=== PATIENT | male | born 1970 | race Caucasian/White ===

== ENCOUNTER 2023-09-29 08:46 | Outpatient (AMB) | payer BC, SELFPAY ==
--- NOTE | 2023-09-29 08:54 | MHC.PC.OV ---
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 He is transferring from [facility] and was last seen by myself on 07/06/2023. CV: Blood pressure today in the office is 118/76. His last cholesterol from July was significantly improved however his triglycerides were still elevated at 281. He was on the atorvastatin 20 mg and states that he has been taking this and repeated his labs recently but does not have the report yet from lab [facility]. He did have a stress test which was negative. He had a normal Holter monitor. He has been following a healthy lifestyle in his feeling overall better. Endo: Seeing an alternative medicine physician and started testosterone and feeling better. Colonoscopy: done november 2022, due in 2027 PSA: UTD, Apr 2023 [facility] Medical History (Updated 09/29/23 @ 09:37 by Kyung Dawkins PA-C) Low testosterone in male Arthritis Tachycardia Obesity, Class I, BMI 30-34.9 Hyperlipidemia Hx of pneumothorax Hx of Lyme disease Hx of fracture of rib Dyslipidemia Family History (Updated 09/29/23 @ 09:26 by Becca Garcia CMA) Mother Breast cancer Father Colon cancer Diabetes mellitus Heart disease Hypercholesteremia HTN (hypertension) Cardiovascular disease Maternal Aunt No problems noted. 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 1. Little interest or pleasure in doing things: not at all 2. Feeling down, depressed, or hopeless: not at all 3. Trouble falling or staying asleep, or sleeping too much: not at all 4. Feeling tired or having little energy: several days 5. Poor appetite or overeating: not at all 6. Feeling bad about yourself - or that you are a failure or have let yourself or your family down: not at all 7. Trouble concentrating on things, such as reading the newspaper or watching television: not at all 8. Moving or speaking so slowly that other people could have noticed. Or the opposite - being so fidgety or restless that you have been moving around a lot more than usual: not at all 9. Thoughts that you would be better off or of hurting yourself in some way: not at all Total score: 1 Depression Screening Interpretation: Negative Depression Screening Done: Yes 79401 - PHQ-9 Billing: Yes Source: Developed by Drs. Shashank Smith, Janet Arzate, Berry Green and colleagues, with an educational bora from [employer]. Thrive Questionnaire Date Thrive assessed: 09/29/23 I am a: Patient What is your living situation today?: I have a steady place to live Within the past 12 months, did the food you bought not last and you didn't have the money to get more?: Never true Within the past 12 months, did you worry whether your food would run out before you got money to buy more?: Never true Do you have trouble paying for medicines?: No Do you have trouble getting transportation to medical appointments?: No Do you have trouble paying your heating and electricity bill?: No Do you have trouble taking care of your child, family member or friend?: No Do you have trouble with day-to-day activities such as bathing, preparing meals, shopping, managing finances, etc.?: No Are you currently unemployed and looking for a job?: No Are you interested in more education?: No Please select the resources that you would like help with: None Currently or been in a relationship where the following occur: no concerns reported THRIVE Score: 0 AUDIT C Alcohol Use Questionnaire (AUDIT-C) 1. How often do you have a drink containing alcohol?: 2-4 times a month 2. How many drinks containing alcohol do you have on a typical day when you are drinking?: 3 or 4 3. How often do you have six or more drinks on one occasion?: Monthly Total Score: 5 JANET-7 AMB Questionnaire JANET-7 Date JANET - 7 assessed: 09/29/23 Feeling nervous, anxious, or on edge: 0 = Not at all Not being able to stop or control worryin = Not at all Worrying too much about different things: 0 = Not at all Trouble relaxin = Not at all Being so restless that it is hard to sit still: 0 = Not at all Becoming easily annoyed or irritable: 0 = Not at all Feeling afraid as if something awful might happen: 0 = Not at all Total JANET-7 score (0-4 normal; 5-9 mild; 10-14 moderate; 15-21 severe): 0 Source: Developed by Drs. Shashank Smith, Janet Arzate, Berry Green and colleagues, with an educational bora from [employer]. JANET-7 Assessment Billing JANET-7 Assessment Tool: JANET-7 Assessment 58547 Physical exam (Primary Care) Vital Signs: Last Vital Signs Temp 97.5 F 09/29/23 09:00 Pulse 81 09/29/23 09:00 Resp 13 09/29/23 09:00 BP 118/76 09/29/23 09:00 Pulse Ox 96 09/29/23 09:00 Oxygen Delivery Method Room Air 09/29/23 09:00 BMI result Body Mass Index 32.0 Tobacco/Smoking Status: Tobacco use Status Tobacco use date assessed 09/29/23 09/29/23 09:08 Patient Tobacco Use Status Never used Tobacco 09/29/23 09:08 e-Cigarette/Vaping Use Never Used 09/29/23 09:08 Depression Screening Interpretation: Negative Currently or been in a relationship where the following occur: no concerns reported Const Orientation/consciousness: patient oriented x3 HENMT Ears: hearing grossly normal bilaterally Neck Thyroid: Thyroid normal Lymphatic: no lymphadenopathy noted Resp Auscultation: clear to auscultation bilaterally Cardio Rate: regular rate Rhythm: regular rhythm Heart sounds: S1 normal heart sound present and S2 normal heart sound present GI Inspection: Yes normal to inspection Palpation (GI): Soft to palpation and Other GI palpation findings present (nontender, no cva tenderness) Auscultation: normoactive bowel sounds Rectal Exam - Male: Yes deferred Skin General skin exam: no rashes or lesions noted Neuro General: patient oriented x3, gait normal and no focal motor deficits Results Reviewed Results Reviewed: lipids improved, lfts wnl Assessment and Plan Assessment & Plan (1) Dyslipidemia: Code(s): E78.5 - Hyperlipidemia, unspecified Plan: continue on atorvastatin 20 mg. will check lipids and lfts in 6 months (2) Low testosterone in male: Code(s): R79.89 - Other specified abnormal findings of blood chemistry Plan: managed by [facility]. Plan f/u 6 months or sooner prn. Orders: Orders Lipid Panel 5 Months Z00.00 - Encounter for general adult medical examination without abnormal findings Complete Blood Count Auto Diff 5 Months Z00.00 - Encounter for general adult medical examination without abnormal findings Comprehensive [place]. Panel Fast 5 Months Z00.00 - Encounter for general adult medical examination without abnormal findings PSA, Ultra Sensitive 5 Months R06.09 - Other forms of dyspnea, Z00.00 - Encounter for general adult medical examination without abnormal findings Coding Level of Care Code Est Pt Level 4 (85249) Complex EM visit Add On G2211 Diagnoses Dyslipidemia E78.5 Low testosterone in male R79.89 Additional Codes JANET-7 Assessment Billing - JANET-7 Assessment Tool: JANET-7 Assessment 06846 ([id number])
[2023-09-29 09:00] VITALS: BP 118/76; PULSE 81; RESP 14; TEMP 36.4; O2SAT 96; BMI 32.0
== END 2023-09-29 09:46 | disposition home or self-care (01) ==
PROVIDERS: PCP Physician Assistant; Visit Provider Physician Assistant
DX: E78.5 Hyperlipidemia, unspecified (principal); R79.89 Other specified abnormal findings of blood chemistry
CPT/HCPCS: 99214

== ENCOUNTER 2024-03-07 07:36 | Outpatient (REF) | payer BC, SELFPAY ==
[2024-03-07 11:18] LABS: MANUAL DIFF FLAG NO
[2024-03-07 11:23] LABS: Basophils Percent Auto 0.4 % (0-2); Eosinophils Absolute Auto 0.2 X10*3/uL (0.0-0.4); Eosinophils Percent Auto 3.3 % (0-4); Hematocrit 49.1 % (42.0-52.0); Hemoglobin 16.4 g/dl (14.0-18.0); Imm Gran Abs Auto 0.01 X10*3/uL (0.00-0.03); Imm Gran Pct Auto 0.1 % (0.0-0.4); Lymphocytes Absolute Auto 3.3 X10*3/uL (1.2-4.9); Lymphocytes Percent Auto 47.6 % (20-40); Mean Corpuscular HGB Conc 33.4 g/dl (31.0-36.0); Mean Corpuscular Hemoglobin 32.2 pg (27.0-33.0); Mean Corpuscular Volume 96.5 fL (80.0-98.0); Mean Platelet Volume 11.3 fL (9.4-12.4); Monocytes Absolute Auto 0.6 X10*3/uL (0.1-1.2); Monocytes Percent Auto 8.2 % (2-11); Neutrophils Absolute Auto 2.8 x10*3/uL (2.0-8.3); Neutrophils Percent Auto 40.4 % (45-73); Platelet Count 199 X10*3/uL (160-400); Red Blood Count 5.09 X10*6/uL (4.60-5.80); White Blood Count 6.9 X10*3/uL (4.8-10.8)
[2024-03-07 11:46] LABS: Estimated Average Glucose 108 mg/dL; Hemoglobin A1C 154.6379 umol/L; Hemoglobin A1c % 5.4 % (<6.0); Total Hemoglobin (HGBA1C) 4365.1271 umol/L
[2024-03-07 11:52] LABS: Alanine Aminotransferase 53 U/L (0-40); Albumin Level 4.7 g/dL (3.5-5.0); Alkaline Phosphatase 70 U/L (39-117); Anion Gap 10 (12-20); Aspartate Amino Transferase 37 U/L (5-37); Bilirubin Total 1.9 mg/dL (0.0-1.0); Blood Urea Nitrogen 13 mg/dL (9-16); Calcium 9.6 mg/dL (8.4-10.2); Carbon Dioxide 31 mmol/L (22-29); Chloride 102 mmol/L (96-108); Cholesterol 232 mg/dL (<200); Estimated Glomerular Filt Rate > 60; Glucose Fasting 92 mg/dL (60-99); HDL Cholesterol 27 mg/dL (>40); LDL Cholesterol Calculated 160 mg/dL (<100); Sodium 139 mmol/L (135-145); Total Protein 7.7 g/dL (6.5-8.0); Triglycerides 229 mg/dL (<150)
[2024-03-07 12:11] LABS: TSH reflex Free T4 1.61 uIU/mL (0.32-4.0)
[2024-03-12 16:29] LABS: Testosterone, Free 265.2 pg/mL (35.0-155.0); Testosterone, Total 947 ng/dL (250-1100)
[2024-03-14 21:13] LABS: PSA, Ultra Sensitive 0.62 ng/mL
== END 2024-03-07 07:37 | disposition home or self-care (01) ==
LOC: HO.WFDLDS 07:36
PROVIDERS: Visit Provider Physician Assistant
DX: Z00.00 Encounter for general adult medical examination without abnormal findings (principal); Z12.5 Encounter for screening for malignant neoplasm of prostate; E78.5 Hyperlipidemia, unspecified; R73.01 Impaired fasting glucose; R06.09 Other forms of dyspnea; R79.89 Other specified abnormal findings of blood chemistry
CPT/HCPCS: 36415; 80053; 80061; 83036; 84153; 84402; 84403; 84443; 85025

== ENCOUNTER 2024-03-14 08:40 | Outpatient (AMB) | payer BC, SELFPAY ==
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
[2024-03-14 08:48] VITALS: BP 128/86; PULSE 84; BMI 42.6
== END 2024-03-14 09:42 | disposition home or self-care (01) ==
PROVIDERS: PCP Physician Assistant; Visit Provider Internal Medicine Endocrinology, Diabetes & Metabolism
DX: R79.89 Other specified abnormal findings of blood chemistry (principal)
CPT/HCPCS: 99204

== ENCOUNTER 2024-03-15 07:49 | Outpatient (REF) | payer BC, SELFPAY | END 2024-03-15 07:50 | disposition home or self-care (01) | LOC: HO.US 07:49 | PROVIDERS: PCP Physician Assistant; Visit Provider Physician Assistant | DX: E78.5 Hyperlipidemia, unspecified (principal); R79.89 Other specified abnormal findings of blood chemistry | CPT/HCPCS: 76700 ==

== ENCOUNTER 2024-03-22 07:36 | Outpatient (AMB) | payer BC, SELFPAY ==
--- NOTE | 2024-03-22 08:06 | A.OFFPC_ITS ---
Vital Signs 03/22/24 08:08 Height 5 ft 10 in Weight 220 lb 6 oz BMI 31.6 BP 130/86 Blood Pressure Location Lt brachial Position Sitting Pulse 78 Pulse Source Pulse Oximeter Pulse Oximetry (%) 94 Oxygen Delivery Method Room Air Intake Visit Reasons: annual physcial Intake Note: Physical. Had ultrasound done. Report not back. Was taken of the testosterone. Extra Hand Required: No Allergies No Known Allergies Allergy (Verified 03/22/24 08:07) Medication List - Last Reconciled 03/22/24 by Kyung Dawkins PA-C atorvastatin 20 mg PO DAILY coenzyme O97-ozbibqx E 100-100 mg-unit caps PO omega 8-ekd-edh-fish oil 300-1,000 mg (Fish Oil) 1 cap PO TID Tobacco use date assessed: 09/29/23 Dental Screening Dental Screen Date: 09/29/23 HPI annual physcial HPI Details Patient is a 52-year-old male who presents today for a follow up. CV: Blood pressure today in the office is 130/86. At our last visit we did increase the atorvastatin to 40 mg but he did not really tolerate this dosage and he did have some increased lfts and higher cholesterol. He went back down to 20 mg and states that he is feeling better and wants to continue with this dosage and recheck his labs. He did have a stress test which was negative. He had a normal Holter monitor. He has been following a healthy lifestyle in his feeling overall better. Endo: Seeing Dr. Tijerina for the possible low testosterone. Colonoscopy: done november 2022, due in 2027 PSA: UTD, Apr 2023 [facility] Medical History (Updated 03/10/24 @ 11:22 by Kyung Dawkins PA-C) Low testosterone in male Arthritis Tachycardia Obesity, Class I, BMI 30-34.9 Hyperlipidemia Hx of pneumothorax Hx of Lyme disease Hx of fracture of rib Dyslipidemia Surgical History No pertinent past surgical history Family History Mother Breast cancer Father Colon cancer Diabetes mellitus Heart disease Hypercholesteremia HTN (hypertension) Cardiovascular disease Maternal Aunt No problems noted. 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 1. Little interest or pleasure in doing things: not at all 2. Feeling down, depressed, or hopeless: not at all 3. Trouble falling or staying asleep, or sleeping too much: not at all 4. Feeling tired or having little energy: not at all 5. Poor appetite or overeating: not at all 6. Feeling bad about yourself - or that you are a failure or have let yourself or your family down: not at all 7. Trouble concentrating on things, such as reading the newspaper or watching television: not at all 8. Moving or speaking so slowly that other people could have noticed. Or the opposite - being so fidgety or restless that you have been moving around a lot more than usual: not at all 9. Thoughts that you would be better off or of hurting yourself in some way: not at all Total score: 0 Depression Screening Interpretation: Negative Depression Screening Done: Yes 95117 - PHQ-9 Billing: Yes Source: Developed by Drs. Shashank Smith, Janet Arzate, Berry Green and colleagues, with an educational bora from [employer]. Thrive Questionnaire Date Thrive assessed: 03/19/24 I am a: Patient What is your living situation today?: I choose not to answer this question Within the past 12 months, did the food you bought not last and you didn't have the money to get more?: I choose not to answer this question Within the past 12 months, did you worry whether your food would run out before you got money to buy more?: I choose not to answer this question Do you have trouble paying for medicines?: I choose not to answer this question Do you have trouble getting transportation to medical appointments?: I choose not to answer this question Do you have trouble paying your heating and electricity bill?: I choose not to answer this question Do you have trouble taking care of your child, family member or friend?: I choose not to answer this question Do you have trouble with day-to-day activities such as bathing, preparing meals, shopping, managing finances, etc.?: I choose not to answer this question Are you currently unemployed and looking for a job?: I choose not to answer this question Are you interested in more education?: I choose not to answer this question Please select the resources that you would like help with: None Currently or been in a relationship where the following occur: I choose not to answer THRIVE Score: 0 AUDIT C Alcohol Use Questionnaire (AUDIT-C) 1. How often do you have a drink containing alcohol?: 2-4 times a month 2. How many drinks containing alcohol do you have on a typical day when you are drinking?: 1 or 2 3. How often do you have six or more drinks on one occasion?: Less than monthly Total Score: 3 JANET-7 AMB Questionnaire JANET-7 Date JANET - 7 assessed: 03/22/24 Feeling nervous, anxious, or on edge: 0 = Not at all Not being able to stop or control worryin = Not at all Worrying too much about different things: 0 = Not at all Trouble relaxin = Not at all Being so restless that it is hard to sit still: 0 = Not at all Becoming easily annoyed or irritable: 1 = Several days Feeling afraid as if something awful might happen: 0 = Not at all Total JANET-7 score (0-4 normal; 5-9 mild; 10-14 moderate; 15-21 severe): 1 Source: Developed by Drs. Shashank Smith, Janet Arzate, Berry Green and colleagues, with an educational bora from [employer]. JANET-7 Assessment Billing JANET-7 Assessment Tool: JANET-7 Assessment 21883 Physical exam (Primary Care) Vital Signs: Last Vital Signs Pulse 78 03/22/24 08:08 BP 130/86 03/22/24 08:08 Pulse Ox 94 03/22/24 08:08 Oxygen Delivery Method Room Air 03/22/24 08:08 BMI result Body Mass Index 31.6 Tobacco/Smoking Status: Tobacco use Status Tobacco use date assessed 09/29/23 03/22/24 08:13 Patient Tobacco Use Status Never used Tobacco 03/22/24 08:13 e-Cigarette/Vaping Use Never Used 03/22/24 08:13 PHQ-9: PHQ-9 Score PHQ-9: Total score 0 03/22/24 08:17 Depression Screening Interpretation: Negative Thrive Assessment: Date of Thrive Assessment Date Thrive assessed 03/19/24 03/22/24 08:13 Currently or been in a relationship where the following occur: I choose not to answer Const Orientation/consciousness: patient oriented x3 HENMT Ears: hearing grossly normal bilaterally and TM's normal bilaterally General nose exam: No nasal polyps present Face and sinus: Yes sinuses nontender Mouth: Normal oral and palatal mucosa present Eyes Pupils: Equal, round and reactive pupils present EOM: EOMs intact bilaterally Neck Neck: Yes full ROM and Yes no lymphadenopathy Thyroid: Thyroid normal Lymphatic: no lymphadenopathy noted Chest Chest palpation & inspection: normal inspection of the chest Resp Auscultation: clear to auscultation bilaterally Cardio Rate: regular rate Rhythm: regular rhythm Heart sounds: S1 normal heart sound present and S2 normal heart sound present Peripheral pulses: Peripheral pulses 2+ throughout GI Other: Soft, nontender Inspection: Yes normal to inspection Palpation (GI): Soft to palpation and Other GI palpation findings present (nontender, no cva tenderness) Auscultation: normal bowel sounds Rectal Exam - Male: Yes deferred General: Yes no CVA tenderness Back/Spine/Pelvis Other: Nontender Back: no CVA tenderness Skin General skin exam: no rashes or lesions noted Neuro General: patient oriented x3, gait normal, CN's II-XI intact bilaterally and deep tendon reflexes 2+ bilaterally Cranial nerves: Yes Equal, round and reactive pupils present Motor exam (neuro): 5/5 motor strength present throughout Sensory Exam: double simultaneous stimulation for sensation normal Coordination: [id number] test normal and Romberg test negative Extrem General: Yes normal to inspection and Yes full ROM Psych Affect: normal affect Attitude: cooperative Thought process: Normal thought process present Thought content: Normal thought content present Insight: Good insight present (Psych) Judgement: Good judgement present (Psych) Results Reviewed Results Reviewed: Laboratory Tests 03/07/24 07:38 WBC 6.9 RBC 5.09 Hgb 16.4 Hct 49.1 Plt Count 199 Sodium 139 Potassium 4.0 Chloride 102 Carbon Dioxide 31 H Anion Gap 10 L BUN 13 Creatinine 1.03 Estimated GFR > 60 Fasting Glucose 92 Hemoglobin A1c % 5.4 Total Bilirubin 1.9 H AST 37 ALT 53 H Alkaline Phosphatase 70 Total Protein 7.7 Albumin 4.7 Triglycerides 229 H Cholesterol 232 H LDL Cholesterol, Calc 160 H HDL Cholesterol 27 L PSA Ultra-Sensitive 0.62 TSH 1.61 Total Testosterone 947 Coding Level of Care Code Est Pt Prev Care 40-64y(69159) Diagnoses Routine general medical examination at a health care facility Z00.00 Elevated LFTs R79.89 Dyslipidemia E78.5 Additional Codes JANET-7 Assessment Billing - JANET-7 Assessment Tool: JANET-7 Assessment 51307 ([id number]) PHQ-9 - 60343 - PHQ-9 Billing: Yes ([id number]) Assessment & Plan Assessment & Plan (1) Routine general medical examination at a health care facility: Code(s): Z00.00 - Encounter for general adult medical examination without abnormal findings Plan: Health maintenance reviewed (2) Elevated LFTs: Code(s): R79.89 - Other specified abnormal findings of blood chemistry Category: Medical Plan: Reviewed ultrasound. Still waiting for the actual interpretation through [facility]. We reviewed the clean room technician findings (3) Dyslipidemia: Code(s): E78.5 - Hyperlipidemia, unspecified Category: Medical Plan: On Lipitor 20 mg. We will recheck labs in a few months.
[2024-03-22 08:08] VITALS: BP 130/86; PULSE 78; O2SAT 94; BMI 31.6
== END 2024-03-22 10:59 | disposition home or self-care (01) ==
PROVIDERS: PCP Physician Assistant; Visit Provider Physician Assistant
DX: Z00.00 Encounter for general adult medical examination without abnormal findings (principal); R79.89 Other specified abnormal findings of blood chemistry; E78.5 Hyperlipidemia, unspecified

== ENCOUNTER → 2024-03-22 07:36 | Outpatient (BNVA) | payer BC, SELFPAY | PROVIDERS: PCP Physician Assistant; Visit Provider Physician Assistant | DX: Z00.00 Encounter for general adult medical examination without abnormal findings (principal); R79.89 Other specified abnormal findings of blood chemistry; E78.5 Hyperlipidemia, unspecified; Z79.899 Other long term (current) drug therapy | CPT/HCPCS: 96127 ==

== ENCOUNTER 2024-04-18 09:59 | Outpatient (REF) | payer BC, SELFPAY ==
[2024-04-18 12:24] LABS: Ferritin 599 ng/mL (20-250)
[2024-04-19 10:03] LABS: Follicle Stimulating Hormone 5.9 mIU/mL (1.4-12.8); Lutenizing Hormone 4.3 mIU/mL (1.5-9.3)
[2024-04-23 15:48] LABS: Testosterone, Free 71.5 pg/mL (35.0-155.0); Testosterone, Total 262 ng/dL (250-1100)
== END 2024-04-18 10:00 | disposition home or self-care (01) ==
LOC: HO.WFDLDS 09:59
PROVIDERS: Visit Provider Internal Medicine Endocrinology, Diabetes & Metabolism
DX: R79.89 Other specified abnormal findings of blood chemistry (principal)
CPT/HCPCS: 36415; 82728; 83001; 83002; 84402; 84403

== ENCOUNTER → 2024-04-24 14:45 | Outpatient (REF) | payer BC, SELFPAY | LOC: HO.SL 14:45 | PROVIDERS: PCP Physician Assistant; Visit Provider Physician Assistant | DX: R06.81 Apnea, not elsewhere classified (principal); G47.30 Sleep apnea, unspecified | CPT/HCPCS: 95806 ==

== ENCOUNTER → 2024-04-24 14:56 | Outpatient (BNV) | payer BC, SELFPAY | PROVIDERS: PCP Physician Assistant; Visit Provider Psychiatry & Neurology Neurology | DX: G47.33 Obstructive sleep apnea (adult) (pediatric) (principal) | CPT/HCPCS: 95806 ==

== ENCOUNTER 2024-05-19 07:53 | Outpatient (REF) | payer BC, SELFPAY ==
[2024-05-19 14:51] LABS: Alanine Aminotransferase 68 U/L (0-40); Albumin Level 4.8 g/dL (3.5-5.0); Alkaline Phosphatase 72 U/L (39-117); Anion Gap 12 (12-20); Aspartate Amino Transferase 33 U/L (5-37); Bilirubin Direct 0.3 mg/dL (0.0-0.5); Blood Urea Nitrogen 11 mg/dL (9-16); Calcium 9.7 mg/dL (8.4-10.2); Carbon Dioxide 28 mmol/L (22-29); Chloride 105 mmol/L (96-108); Cholesterol 243 mg/dL (<200); Estimated Glomerular Filt Rate > 60; Glucose Fasting 84 mg/dL (60-99); HDL Cholesterol 27 mg/dL (>40); LDL Cholesterol Calculated 178 mg/dL (<100); Potassium 4.3 mmol/L (3.3-5.1); Sodium 141 mmol/L (135-145); Total Protein 8.3 g/dL (6.5-8.0); Triglycerides 193 mg/dL (<150)
== END 2024-05-19 07:54 | disposition home or self-care (01) ==
LOC: HO.WFDLDS 07:53
PROVIDERS: PCP Physician Assistant; Visit Provider Physician Assistant Medical
DX: Z00.00 Encounter for general adult medical examination without abnormal findings (principal); E78.5 Hyperlipidemia, unspecified; R79.89 Other specified abnormal findings of blood chemistry
CPT/HCPCS: 36415; 80053; 80061; 80076; 82248

== ENCOUNTER 2024-05-19 07:53 | Outpatient (AMB) | payer BC, SELFPAY ==
--- NOTE | 2024-05-19 07:55 | MHC.OFFVIS ---
Vital Signs 05/19/24 07:59 Height 5 ft 10 in Weight 225 lb BMI 32.3 Intake Visit Reasons: INP-VÍCTOR Intake Note: Patient presents for VÍCTOR Allergies No Known Allergies Allergy (Verified 05/19/24 07:59) HPI Comments Details: 53 year old male presents for a sleep evaluaton per his PCP Kyung Dawkins. Home Sleep Study: 05/08/2024 Mild Sleep apnea, AHI was 12/Hr. and O2 Rolan at 77% He goes to bed at 9pm and wakes up at 5am, with no bathroom breaks. He was seen by Endocrine Dr. Tijerina recommended he start Testosterone HRT one year ago, d/t low libido, mood irritability. He says he has a low stress lifestyle, however concerned about sexual health and quality of life. His Triglycerides were elevated, NAFLD. He denies headaches, RLS, cramps, and grinding of teeth. His mood is low generally, and has been impatient since getting off of HRT. Memory is good. Diet is clean, he says he fasts between 9pm to 9am. His and him travel for fun x1 a month, hikes, and completes 4502-5453 steps daily at work throughout the day. He denies smoking, edibles, and drinks on the weekends, 1-3 drinks. Labs: TSH Normal/ B12 / Vit D Ferritin was high/ PFSH Medical History Low testosterone in male Arthritis Tachycardia Obesity, Class I, BMI 30-34.9 Hyperlipidemia Hx of pneumothorax Hx of Lyme disease Hx of fracture of rib Dyslipidemia Surgical History No pertinent past surgical history Family History Mother Breast cancer Father Colon cancer Diabetes mellitus Heart disease Hypercholesteremia HTN (hypertension) Cardiovascular disease Maternal Aunt No problems noted. 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 Current occupational exposures/hazards: Yes Cognitive needs: Yes Hearing needs: Yes Vision needs: Yes (glasses) Physical Exam Vital Signs: BMI result Body Mass Index 32.3 Const General: cooperative, comfortable and no acute distress Nutritional Appearance: average body habitus and obese (BMI is 32) Orientation/consciousness: patient oriented x3 HEENT Face and sinus: Yes normal facial exam and Yes face symmetric Teeth and gingiva: other (Mallmpti score of 3) Eyes Pupils: Equal, round and reactive pupils present Neck Neck: Yes full ROM and Yes supple Resp Effort & Inspection: normal respiratory effort and able to speak in complete sentences Neuro General: patient oriented x3 and moves all extremities Cranial nerves: Yes CN's II-XII intact bilaterally, Yes Facial sensation intact/muscles of mastication intact, Yes Equal, round and reactive pupils present, Yes Normal accommodation reflex present, Yes Bilaterally intact EOM present, Yes Nystagmus not present, Yes Normal facial strength present, Yes Midline tongue present, Yes Ability to bilaterally rotate head present and Yes Ability to bilaterally elevate shoulders present Gait exam (Neuro): Normal gait present Motor exam (neuro): 5/5 motor strength present throughout, Pronator motor function not present, no tremor noted and Normal motor muscle tone present throughout Deep tendon reflexes (DTR's): Right triceps reflex intensity grade: 2+, Left triceps reflex intensity grade: 2+, Rt Biceps (C5, C6): 2+, Left biceps reflex intensity grade: 2+, Right brachioradialis reflex intensity grade: 2+, Left brachioradialis reflex intensity grade: 2+, Right patellar reflex intensity grade: 2+ and Left patellar reflex intensity grade: 2+ Psych Appearance: grossly normal Mental Status: mental status grossly normal Speech and movement: Normal speech and movement present Affect: normal affect Attitude: cooperative Thought process: Normal thought process present Thought content: Normal thought content present Insight: Good insight present (Psych) Judgement: Good judgement present (Psych) Results Reviewed Results Reviewed: HST 05/08/2024 Mild VÍCTOR AHI was 12/Hr and O2 Rolan to 77% for 3 min. Start APAP at [id number] Assessment & Plan Assessment & Plan (1) Mild obstructive sleep apnea: Code(s): G47.33 - Obstructive sleep apnea (adult) (pediatric) Category: Medical (2) Low testosterone in male: Code(s): R79.89 - Other specified abnormal findings of blood chemistry Category: Medical (3) Fatigue due to sleep pattern disturbance: Code(s): R53.83 - Other fatigue; G47.9 - Sleep disorder, unspecified Category: Medical Plan Mild Sleep Apnea HST completed: AHI was 12/Hr. O2 Rolan 77% Orders sent to [facility] Start CPAP [id number] Labs: Vit D / B12/ Folate MMA / Homocysteine Patient Eduction: Role of GH regulation in a diurinal pattern, and our natural Circadian Rhythm influencing hormones, along with need for good cholesterol (HDL) as a building block, hence the need for good quality of Sleep, and Sleep Hygiene. Dark Room Temp below 68, no devices in bed, limit fluids 2 hours prior to bed, may read in bed. Will F/u in 3 months to monitor compliance. Orders: Orders Vitamin B12 and Folate Today G47.9 - Sleep disorder, unspecified, R53.83 - Other fatigue Vitamin D 25-OH Total Today G47.9 - Sleep disorder, unspecified, R53.83 - Other fatigue Methylmalonic Acid Today G47.9 - Sleep disorder, unspecified, R53.83 - Other fatigue Homocysteine Today G47.9 - Sleep disorder, unspecified, R53.83 - Other fatigue Coding Level of Care Code Tele New Pt Level 4 (77244) Diagnoses Mild obstructive sleep apnea G47.33 Low testosterone in male R79.89 Fatigue due to sleep pattern disturbance R53.83; G47.9 Time Spent (min) 35 Sleep Questionnaire Difficulty falling asleep: No Difficulty staying asleep?: Yes Number of arousals: 0 Snoring: Yes Witnessed apneas: No Gasping arousals: No Nocturia: No GERD: No Vivid dreams: No Acting out dreams: No Abnormal behavior in sleep: No Abnormal movements in sleep: No Excessive daytime sleepiness: Yes Daytime naps: No Restless legs: No Hallucinations: No Sleep paralysis: No Drop attacks: No Sleep Study: Yes CPAP: No
--- OUTSIDE RECORDS SUMMARY | 2024-05-19 07:56 | XMS_ITS | Data Portability ---
Author Organization [place] - [facility], [facility] Address [address] [place] [address] Care Team Providers Care Veneer Sorter Name Role Phone JENI HAMMOND Primary Care Provider [phone] Assessment No assessment recorded. Plan of Treatment Reminders Order Date Submit Date Provider Last Modified By Organization Details Last Modified Time Details Appointments None recorded. Lab None recorded. Referral None recorded. Procedures None recorded. Surgeries None recorded. Imaging XR, cervical spine, 1 view - room 2 lateral cervical 2023 024 [facility], [address], [address], [place], [address], 4 08:10:49 XR, shoulder, 2 or more view - room 2 left shoulder/ lateral cervical 2023 024 [facility], [address], [address], [place], [address], 4 08:10:49 MRI, shoulder, w/o contrast - rct 2023 024 [facility] ([facility] [address], [place], [address], 4 08:10:49 Medication Orders None recorded. Patient TargetsNo targets recorded. Patient InstructionsNo instructions recorded. Reason for Referral None Reported. Results Created Date Observation Date Name Description Value Unit Range Abnormal Flag Note LastModifiedBy Organization Detail LastModifiedTime 12/13/1912/13/2023 XR, cervi alejandro spine , 1 view [email or web address] ?Encry pted=s hAaTro YD8dLq bEUv6g %2BXZw aYqtaq 0bqfl% 2Fg9IQ a4ajBk vP9nXo QUaueC m3YtLR FvZlgJ JJ8mAn HZtai3 2b0757 AC0Kra nWFV6v eUC8mr 84%3D INTERFACE [facility] [address], [place], [address], 12/13/2023 12:58:46 12/13/19 24 12/13/2023 XR, cervi alejandro spine , 1 view http:/ [email or web address] ?Encry pted=s hAaTro YD8dLq bEUv6g %2BXZw aYqtaq 0bqfl% 2Fg9IQ a4ajBk vP9nXo QUaueC m3YtLR FvZlg JJ8Chicago HZtai3 5r5811 AC0Kra nWFV6v eUC8mr 84%3D INTERFACE [facility] [address], [place], [address], 12/13/2023 12:58:48 12/13/19 24 12/13/2023 XR, shoul javan, 2 or more view [email or web address] ?Encry pted=s hAaTro YD8dLq bEUv6g %2BXZw aYqtaq 0bqfl% 2Fg9IQ a4ajBk vP9nXo QUaueC m3YtLR FvZlgJ JJ8mAn HZtai3 5o6031 AC0Kra nWFV6L eUC8mr 84%3D INTERFACE [facility] [address], [place], [address], 12/13/2023 13:02:23 12/13/19 24 12/13/2023 XR, shoul javan, 2 or more view [email or web address] ?Encry pted=s hAaTro YD8dLq bEUv6g %2BXZw aYqtaq 0bqfl% 2Fg9IQ a4ajBk vP9nXo QUaueC m3YtLR FvZlgJ JJ8mAn HZtai3 9p5506 AC0Kra nWFV6L eUC8mr 84%3D INTERFACE [facility] [address], [place], [address], 12/13/2023 13:02:24 12/20/19 24 12/18/2023 MRI, shoul javan, w/o contr ast [facility] Access ion Number : [id number] Patien t Name: Cullen Montano Record Number : [id number] Date of : 1970 Date of Exam: 2023 Referr ing Physic gopal: Rob crook, [facility] [address] [facility], [address] [place] [address] Exam: MR Should er (C-) CPT 85014 - Left Room Descri ption: [place] [facility] al Histor y: Other specif ic joint derang ements of the left should er, questi on rotato r cuff tear. The patien t report s consta nt latera l left should er pain which varies in severi ty at night for one week. Techni que: MRI of the left should er was perfor med withou t intrav enous contra st. Compar liyah: Left should er MRI dated 018. Findin gs: Rotato r cuff: There is supras pinatu s tendin opathy and mild insert ional tendin opathy of infras pinatu s. There is subsca pulari s tendin opathy . The teres minor tendon is intact . There is normal muscle bulk. Glenoi d labrum and biceps tendon : There is diffus e interm ediate signal in the superi or labrum , compat ible with degene ration . Superi mposed tearin g of the personal property assessor ior labrum . Chroni c tear of the long head of the biceps tendon . Bilobe d cystic struct ure adjace nt to the anteri or inferi or glenoi d is seen withou t defini te extens ion to the labrum to confir m a para labral cyst. AC joint: There is mild to modera te acromi oclavi cular degene rative change of bony prolif eratio n and subcho ndral marrow edema. Narrow ing of the medial outlet is again seen. Articu lar cartil age: There is irregu lar chondr al thinni ng inferi bushra in the glenoi d. No discre te chondr al defect over the ren l head. No eviden ce of glenoh umeral joint effusi on. Bone: The bone and bone marrow are normal . Impres hugh: 1. Tendin opathy of supras pinatu s, subsca pulari s and the infras pinatu s insert ion. 2. Chroni c tear of the long head of the biceps tendon and degene rative appear ing tear in the personal property assessor ior labrum . Bilobe d cystic struct ure adjace nt to the felicia inferi or labrum glenoi d is seen withou t defini te extens ion to the labrum to sugges t a para labral cyst. 3. Mild glenoh umeral and mild to modera te acromi oclavi cular degene rative change . Electr onical ly Signed By: Karen Clancy ra, MD [email or web address] [facility] ([facility]) [address], [place], [address], 12/24/2023 09:27:25 Result Notes None recorded. Problems Name Problem SNOMED Code Status Onset Date Resolution Date Notes Provider Name and Address Organization Details Recorded Time Pain of left shoulder joint 7043120426509 9109 Active 2023 Josué Jonas PA-C [address], [place], [address], [facility] 4 12:46:01 Neck pain 56867810 Active 2023 Josué Jonas PA-C [address], [place], [address], [facility] 4 12:46:57 Impingement syndrome of left shoulder region 8863770309275 04 Active 2023 Josué Jonas PA-C [address], [place], [address], [facility] 4 13:04:56 Derangement of left shoulder joint 2614428977936 9106 Active 2023 Josué Jonas PA-C [address], [place], [address], [facility] 4 13:06:03 Degenerativ e joint disease of shoulder region 12773481 Active 2023 Josué Jonas PA-C [address], [place], [address], [facility] 4 15:38:53 Problem Notes None recorded. Procedures Surgical History Date Name Laterality Status Provider Name and Address Organization Details Recorded Time Sports Shoulder 4&1 w/US completed Josué Jonas PA-C [address], [place], [address], [facility] 01/03/2024 15:38:38 Imaging Results Imaging Date Name Status LastModified by Organ [facility] Details LastModified Time 12/13/2023 XR, cervical spine, 1 view completed INTERFACE [facility] [address], [place], [address], 12/13/2023 12:58:46 12/13/2023 XR, cervical spine, 1 view completed INTERFACE [facility] [address], [place], [address], 12/13/2023 12:58:48 12/13/2023 XR, shoulder, 2 or more view completed INTERFACE [facility] [address], [place], [address], 12/13/2023 13:02:23 12/13/2023 XR, shoulder, 2 or more view completed INTERFACE [facility] [address], [place], [address], 12/13/2023 13:02:24 12/18/2023 MRI, shoulder, w/o contrast completed [email or web address] [facility] ([facility]) [address], [place], [address], 12/24/2023 09:27:25 Procedure Notes None recorded. Medical Equipment None Reported. Allergies No known drug allergies Medications Name Sig Start Date Stop Date Status Note LastModified by Organization Details LastModified Time atorvastatin 40 mg tablet TAKE 1 TABLET BY MOUTH EVERYDAY AT BEDTIME active Not Available Not Available No t Available anastrozole 1 mg tablet TAKE 1/2 TAB (0.5MG) 48 HOURS AFTER YOUR T INJECTION . active Not Available Not Available No t Available atorvastatin 20 mg tablet TAKE 1 TABLET BY MOUTH EVERY DAY active Not Available Not Available No t Available atorvastatin 10 mg tablet TAKE 1 TABLET BY MOUTH EVERY DAY active Not Available Not Available No t Available Vitals Date Recorded Body height Body mass index (BMI) Body weight Provider Name and Address Organization Details Last Updated DateTime 12/13/2023 177.8 cm 31.1 kg/m2 84790.54 g Josué Jonas PA-C [address] [facility] [address], [address], [facility] 12/13/2023 12:45:07 Date Recorded Body height Body mass index (BMI) Body weight Provider Name and Address Organization Details Last Updated DateTime 01/03/2024 177.8 cm 31.1 kg/m2 47242.54 g Josué Jonas PA-C [address] [facility] [address] [address], [place], [address], [facility] 01/03/2024 14:59:28 Social History None recorded. Functional Status None recorded. Mental Status None recorded. Family History Nothing Reported. Medical History Condition Response Arthritis Y Cholesterol Y Past Encounters Encounter ID Performer Location Encounter Start Date Encounter Closed Date Diagnosis/Indication Diagnosis SNOMED-CT Code Diagnosis ICD10 Code Diagnosis Note [id number] DENIA [facility] [address] floor [address] [place] [address] 12/13/2023 12:27:51 12/30/2023 08:10:49 Pain of left shoulder joint 6449196770 7958987 M25.512 Neck pain 32168776 M54.2 Impingemen t syndrome of left shoulder region 7648597855 45802 M75.42 Derangemen t of left shoulder joint 5086463864 6218520 M24.424 [id number] DENIA [facility] [address] [place] [address] 01/03/2024 14:54:33 01/13/2024 12:54:11 Degenerative joint disease of shoulder region 54413464 M19.019 Health Concerns Section Related Observation LastModified by Organization Detai ls LastModified Time None Recorded Concern Status LastModified by Organization Details LastModified Time None Recorded Advance Directives Directive None Recorded Payers Encounter Date Sequence Insurance Name Policy Number Policy Gibson Covered Member ID Gibson Member ID Guarantor Name 12/13/2023 1 [place] [id number] Cullen Silveriolow [id number] Cullen Silveriolow 01/03/2024 1 [place] [id number] Cullen Silveriolow [id number] Cullen Montano Notes Date Note Type Note Provider Name and Address Organization Details Recorded Time 12/13/2023 text/html I am seeing this patient under the supervision of Dr. Muniz who was available but did not see the patient. HPI: Cullen is a 52-year-old male comes her office for initial evaluation of chief complaint of left shoulder pain. He had symptoms 6 years ago had an MRI scan done at that time which showed rupture long head of biceps, partial-thickness tearing of supraspinatus and infraspinatus with posttraumatic AC joint arthritis. He was managed conservatively reports 3 months of recurring symptoms in the left shoulder with both pain and weakness with overhead activities. Frustrated concerned by his inability improve despite home physical therapy and oral anti-inflammatories the patient is now referred to our office for orthopedic evaluation. PFMSH and ROS has been reviewed, updated, and signed by me and is located in the patient??s chart. PHYSICAL EXAMINATION: The patient is well appearing and in no apparent distress. Alert and oriented x 3. Gait is symmetric. Examination of the shoulder findings include: ROM forward elevation 175??, external rotates 35??, internal rotates to back pocket, 4/5 strength with forward elevation, 3/5 with external rotation including rotator cuff and periscapular musculature. Good Muscle bulk and strength without atrophy. No evidence of instability of the shoulder. Positive impingement signs. Moderate AC joint tenderness, Mild tenderness within the bicipital groove. Negative Speed's, Negative O'briens, Negative Nataliia tests. Cervical ROM normal without radicular symptoms. No erythema, no redness, no warmth. Peripheral, vascular, lymphatic examination, skin, neurological, coordination, reflexes, sensation are within normal limits. X-RAY REPORT: X-rays were ordered, obtained and independently reviewed today at [facility]. Four views of the left shoulder demonstrate type III acromion, AC joint arthritis with heterotopic bone formation from previous injury, well-preserved glenohumeral joint. Lateral C-spine x-ray shows degenerative disc disease at C5-6 and C6-7. IMPRESSION: Left shoulder impingement with question rotator cuff tear, posttraumatic AC joint arthritis, mild degenerative cervical spine disease. PLAN: Treatment options discussed ultimately recommendation was made to progress activity to tolerance continue home-based exercises based on the recurring nature of his symptoms weakness on exam previous MRI scanning showing some partial-thickness tearing and previous rupture of his long head of his biceps my suspicion is high for tear involving supraspinatus and infraspinatus with his external rotation weakness. MRI scan was ordered, he will check back for follow-up discuss results and definitive care going forward. [facility] speech recognition chemist inorganic software was used to create portions of this document. An attempt at proofreading has been made to minimize errors. Please call for corrections. Josué Jonas PA-C [address] [facility] [address], [place], [address], [facility] 12/13/2023 13:11:35 01/03/2024 text/html I am seeing this patient under the supervision of Dr. Muniz who was available but did not see the patient. HPI: Cullen is a 52-year-old male comes her office for initial evaluation of chief complaint of left shoulder pain. He had symptoms 6 years ago had an MRI scan done at that time which showed rupture long head of biceps, partial-thickness tearing of supraspinatus and infraspinatus with posttraumatic AC joint arthritis. He was managed conservatively reports 3 months of recurring symptoms in the left shoulder with both pain and weakness with overhead activities. Interval history: Cullen returns today for follow-up evaluation of his left shoulder. He reports some improvement in overall acuity of his symptoms but is still having a fair amount of day-to-day pain. MRI scan was ordered he comes in today for review of that study. MRI scan of the left shoulder independently reviewed today findings include: Moderate tendinopathy involving supraspinatus, previous rupture long head of biceps, early glenohumeral joint arthritis with degenerative labral fraying with cystic changes involving anterior and posterior labrum. Examination of the shoulder findings include: ROM forward elevation 175??, external rotates 35??, internal rotates to back pocket, 4/5 strength with forward elevation, 3/5 with external rotation including rotator cuff and periscapular musculature. Good Muscle bulk and strength without atrophy. No evidence of instability of the shoulder. Positive impingement signs. Moderate AC joint tenderness, Mild tenderness within the bicipital groove. Negative Speed's, Negative O'briens, Negative Nataliia tests. Cervical ROM normal without radicular symptoms. No erythema, no redness, no warmth. Peripheral, vascular, lymphatic examination, skin, neurological, coordination, reflexes, sensation are within normal limits. X-RAY REPORT: X-rays were ordered, obtained and independently reviewed today at [facility]. Four views of the left shoulder demonstrate type III acromion, AC joint arthritis with heterotopic bone formation from previous injury, well-preserved glenohumeral joint. Lateral C-spine x-ray shows degenerative disc disease at C5-6 and C6-7. IMPRESSION: Left shoulder rotator cuff tendinitis, early clinical joint arthritis with degenerative labral fraying, previous rupture long head of biceps. PLAN: We had a brief conversation about different treatment options available ultimately decided to go forward with left shoulder ultrasound-guided injection today. I recommended home-based physical therapy improved scapular posture most importantly lifestyle modifications. His symptoms are only temporary responsive we could discuss limited surgical options include intra-articular debridement with subacromial decompression distal clavicle excision sometime in the future. [employer] speech recognition chemist inorganic software was used to create portions of this document. An attempt at proofreading has been made to minimize errors. Please call for corrections. Josué Jonas PA-C [address] [place] [address] [address], [place], [address], [facility] 01/03/2024 15:39:17
[2024-05-19 07:59] VITALS: BMI 32.3
== END 2024-05-19 08:43 | disposition home or self-care (01) ==
PROVIDERS: PCP Physician Assistant; Visit Provider Physician Assistant Medical
DX: G47.33 Obstructive sleep apnea (adult) (pediatric) (principal); R79.89 Other specified abnormal findings of blood chemistry; R53.83 Other fatigue; G47.9 Sleep disorder, unspecified
CPT/HCPCS: 99204

== ENCOUNTER 2024-06-14 15:08 | Outpatient (AMB) | payer BC, SELFPAY ==
[2024-06-14 15:09] VITALS: BP 140/82; PULSE 106; O2SAT 95; BMI 33.4
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
--- OUTSIDE RECORDS SUMMARY | 2024-06-14 15:14 | XMS_ITS | Data Portability ---
Author Organization [place] - [facility], [facility] Address [address] [place] [address] Care Team Providers Care Sleep Technologist Name Role Phone JENI HAMMOND Primary Care Provider Assessment No assessment recorded. Plan of Treatment Reminders Order Date Submit Date Provider Last Modified By Organization Details Last Modified Time Details Appointments None recorded. Lab None recorded. Referral None recorded. Procedures None recorded. Surgeries None recorded. Imaging XR, cervical spine, 1 view - room 2 lateral cervical 2023 024 [facility], [address], [address], [place], [address], 4 08:10:49 XR, shoulder, 2 or more view - room 2 left shoulder/ lateral cervical 2023 024 [facility], [address], [address], [place], [address], 4 08:10:49 MRI, shoulder, w/o contrast - rct 2023 024 [facility] ([facility] [address], [place], [address], 4 08:10:49 Medication Orders None recorded. Patient TargetsNo targets recorded. Patient InstructionsNo instructions recorded. Reason for Referral None Reported. Results Created Date Observation Date Name Description Value Unit Range Abnormal Flag Note LastModifiedBy Organization Detail LastModifiedTime 12/13/19 24 12/13/2023 XR, cervi alejandro spine , 1 view [email or web address] ?Encry pted=s hAaTro YD8dLq bEUv6g %2BXZw aYqtaq 0bqfl% 2Fg9IQ a4ajBk vP9nXo QUaueC m3YtLR FvZlgJ JJ8mAn HZtai3 8w4589 AC0Kra nWFV6v eUC8mr 84%3D INTERFACE [facility] [address], [place], [address], 12/13/2023 12:58:46 12/13/19 24 12/13/2023 XR, cervi alejandro spine , 1 view [email or web address]:/ [email or web address] ?Encry pted=s hAaTro YD8dLq bEUv6g %2BXZw aYqtaq 0bqfl% 2Fg9IQ a4ajBk vP9nXo QUaueC m3YtLR FvZlg JJ8Walsh HZtai3 8t0108 AC0Kra nWFV6v eUC8mr 84%3D INTERFACE [facility] [address], [place], [address], 12/13/2023 12:58:48 12/13/19 24 12/13/2023 XR, shoul javan, 2 or more view [email or web address] ?Encry pted=s hAaTro YD8dLq bEUv6g %2BXZw aYqtaq 0bqfl% 2Fg9IQ a4ajBk vP9nXo QUaueC m3YtLR FvZlgJ JJ8mAn HZtai3 3r4699 AC0Kra nWFV6L eUC8mr 84%3D INTERFACE [facility] [address], [place], [address], 12/13/2023 13:02:23 12/13/19 24 12/13/2023 XR, shoul javan, 2 or more view [email or web address] ?Encry pted=s hAaTro YD8dLq bEUv6g %2BXZw aYqtaq 0bqfl% 2Fg9IQ a4ajBk vP9nXo QUaueC m3YtLR FvZlgJ JJ8mAn HZtai3 4z1165 AC0Kra nWFV6L eUC8mr 84%3D INTERFACE [facility] [address], [place], [address], 12/13/2023 13:02:24 12/20/19 24 12/18/2023 MRI, shoul javan, w/o contr ast [facility] Access ion Number : [id number] Patien t Name: Cullen Montano Record Number : [id number] Date of : 1970 Date of Exam: 2023 Referr ing Physic gopal: Rob crook, [facility] [address] [facility], [address] [place] [address] Exam: MR Should er (C-) CPT 39237 - Left Room Descri ption: [place] [facility] al Histor y: [...] . Superi mposed tearin g of the stamp maker ior labrum . Chroni c tear of [...] degene rative appear ing tear in the stamp maker ior labrum . Bilobe d cystic struct ure adjace nt to the felicia inferi or labrum glenoi d is seen withou t defini te extens ion to the labrum to sugges t a para labral cyst. 3. Mild glenoh umeral and mild to modera te acromi oclavi cular degene rative change . Electr onical ly Signed By: Karen Clancy ra, MD [email or web address] [facility] ([facility]) [address], [place], [address], 12/24/2023 09:27:25 Result Notes None recorded. Problems Name Problem SNOMED Code Status Onset Date Resolution Date Notes Provider Name and Address Organization Details Recorded Time Pain of left shoulder joint 8402128837530 9109 Active 2023 Josué Jonas PA-C [address], [place], [address], [facility] 4 12:46:01 Neck pain 32958943 Active 2023 Josué Jonas PA-C [address], [place], [address], [facility] 4 12:46:57 Impingement syndrome of left shoulder region 1458368513531 04 Active 2023 Josué Jonas PA-C [address], [place], [address], [facility] 4 13:04:56 Derangement of left shoulder joint 7818743937859 9106 Active 2023 Josué Jonas PA-C [address], [place], [address], [facility] 4 13:06:03 Degenerativ e joint disease of shoulder region 06502917 Active 2023 Josué Jonas PA-C [address], [place], [address], [facility] 4 15:38:53 Problem Notes None recorded. Procedures Surgical History Date Name Laterality Status Provider Name and Address Organization Details Recorded Time Sports Shoulder 4&1 w/US completed Josué Jonas PA-C [address], [place], [address], [facility] 01/03/2024 15:38:38 Imaging Results Imaging Date Name Status LastModified by [facility] Details LastModified Time 12/13/2023 XR, cervical spine, 1 view completed INTERFACE [facility] [address], [place], [address], 12/13/2023 12:58:46 12/13/2023 XR, cervical spine, 1 view completed INTERFACE [facility] [address], [place], [address], 12/13/2023 12:58:48 12/13/2023 XR, shoulder, 2 or more view completed INTERFACE [facility] [address], [place], [address], 12/13/2023 13:02:23 12/13/2023 XR, shoulder, 2 or more view completed INTERFACE [facility] [address], [place], [address], 12/13/2023 13:02:24 12/18/2023 MRI, shoulder, w/o contrast completed [email or web address] [facility] ([facility]) [address], [place], [address], 12/24/2023 09:27:25 Procedure Notes None recorded. Medical [...] Updated DateTime 12/13/2023 177.8 cm 31.1 kg/m2 25064.54 g Josué Jonas PA-C [address], [address], [facility] 12/13/2023 12:45:07 Date Recorded Body height Body mass index (BMI) Body weight Provider Name and Address Organization Details Last Updated DateTime 01/03/2024 177.8 cm 31.1 kg/m2 06013.54 g Josué Jonas PA-C [address] [address], [place], [address], [facility] 01/03/2024 14:59:28 Social History None recorded. Functional Status None recorded. Mental Status None recorded. Family History Nothing Reported. Medical History Condition Response Arthritis Y Cholesterol Y Past Encounters Encounter ID Performer Location Encounter Start Date Encounter Closed Date Diagnosis/Indication Diagnosis SNOMED-CT Code Diagnosis ICD10 Code Diagnosis Note [id number] DENIA [facility] 3rd floor [address] [address] 12/13/2023 12:27:51 12/30/2023 08:10:49 Pain of left shoulder joint 6208052769 5842937 M25.512 Neck pain 10254584 M54.2 Impingemen t syndrome of left shoulder region 4529527492 42823 M75.42 Derangemen t of left shoulder joint 5943101042 3842392 M24.723 [id number] DENIA [facility] [address] [place] [address] 01/03/2024 14:54:33 01/13/2024 12:54:11 Degenerative joint disease of shoulder region 72783542 M19.019 Health Concerns Section Related Observation LastModified by Organization Detai ls LastModified Time None Recorded Concern Status LastModified by Organization Details LastModified Time None Recorded Advance Directives Directive None Recorded Payers Encounter Date Sequence Insurance Name Policy Number Policy Gibson Covered Member ID Gibson Member ID Guarantor Name 12/13/2023 1 [place] [id number] Cullen iSlveriolow [id number] Cullen Silveriolow 01/03/2024 1 [place] [id number] Cullen Silveriolow [id number] Cullen Montano Notes Date Note Type [...] by me and is located in the patient? ? ?s chart. PHYSICAL EXAMINATION: The patient is well appearing and in no apparent distress. Alert and oriented x 3. Gait is symmetric. Examination of the shoulder findings include: ROM forward elevation 175? ? ?, external rotates 35? ? ?, internal rotates to back pocket, 4/5 strength [...] ordered, obtained and independently reviewed today at [facility]. Four views of the left shoulder demonstrate [...] discuss results and definitive care going forward. [facility] speech recognition singer back tender software was used to create portions of this document. An attempt at proofreading has been made to minimize errors. Please call for corrections. Josué Jonas PA-C [address] [facility] [address], [place], [address], [facility] 12/13/2023 13:11:35 01/03/2024 text/html [...] the shoulder findings include: ROM forward elevation 175? ? ?, external rotates 35? ? ?, internal rotates to back pocket, 4/5 strength [...] ordered, obtained and independently reviewed today at [facility]. Four views of the left shoulder demonstrate [...] distal clavicle excision sometime in the future. Proenza Schouer [facility] speech recognition singer back tender software was used to create portions of this document. An attempt at proofreading has been made to minimize errors. Please call for corrections. Josué Jonas PA-C [address] [place] [address] [address], [place], [address], [facility] 01/03/2024 15:39:17
--- OUTSIDE RECORDS SUMMARY | 2024-06-14 15:14 | XMS_ITS | Clinical Summary ---
Author Organization [facility] Address [address] [place] [address] Care Team Providers Care Spa Manager Name Role Phone Unavailable Primary Care Provider Unavailabl e Source Comments PLEASE NOTE, if this patient is a minor, it may be UNLAWFUL to discuss sensitive information that is contained in these records (such as FAMILY PLANNING, MENTAL HEALTH or SUBSTANCE ABUSE) with the minor patient's parent or other person without the patient's specific authorization.[facility] Immunizations Name Administration Dates Next Due Moderna COVID-19 Vaccine, re d cap blue label, 12+ Primary Series 08/19/2020,07/22/2020 Social History Tobacco Use Types Packs/Day Years Used Date Smoking Tobacco: Never Assessed Social Connections Answer Date Recorded Social Connections and Isolation 0 07/22/2020 Financial Resource Strain Answer Date R ecorded Financial Resource Strain 0 2020 Stress Answer Date Recorded Stress 0 07/22/2020 Physical Activity Answer Date Recorded Physical Activity 0 07/22/2020 Food Insecurity Answer Date Recorded Food 0 07/22/2020 Transportation Needs Answer Date Record ed Transportation 0 07/22/2020 Housing Stability Answer Date Recorded Housing 0 07/22/2020 Safety and Environment Answer Date Eze rded Safety 0 07/22/2020 Utilities Answer Date Recorded Utilities 0 07/22/2020 Employment Answer Date Recorded Employment 0 07/22/2020 Sex and Gender Information Value Date Recorded Sex Assigned at Not on file Legal Sex Male 7:32 AM PDT Gender Identity Not on file Sexual Orientation Not on file Plan of Treatment Health Maintenance Due Date Last Done Comments Diabetes Screening 1970 Hepatitis C Screening 1972 Lipid Screening 1972 Tobacco Screening 1972 HIV Screening 12/16/1987 Annual Preventive Care Visit 1990 Hypertension Screening (#1) 1990 Imm-Hepatitis B (1 of 3 - 19 + 3-dose series) 12/16/1991 Imm-DTaP/Tdap/Td (1 - Tdap) 09/25/2000 09/24/2000 CT Colonography 2017 Colonoscopy 2017 Colorectal Cancer Screening 2017 FIT/gFOBT 2017 Fecal DNA 2017 Flexible Sigmoidoscopy 2017 Imm-Zoster, Recombinant (1 of 2) 2022 [id number] ( season) 2023 021, 07/22/2020 Imm-Influenza (#1) 2023 Alcohol and Drug Screen 04/26/2024 Depression Annual Screen 04/26/2024 Insurance [facility] Member Subscriber Plan / Payer (Ef fective 2020-Present) Name:Cullen Montano Relation to Subscriber:Self Name:Cullen Montano Payer ID:[id number] Type:[employer] Address: [facility] [id number] [place] [address]
== END 2024-06-14 15:54 | disposition home or self-care (01) ==
PROVIDERS: PCP Physician Assistant; Visit Provider Internal Medicine Endocrinology, Diabetes & Metabolism
DX: R79.89 Other specified abnormal findings of blood chemistry (principal)
CPT/HCPCS: 99213

== ENCOUNTER 2024-06-16 15:39 | Outpatient (REF) | payer BC, SELFPAY ==
--- OUTSIDE RECORDS SUMMARY | 2024-06-16 15:43 | XMS_ITS | Clinical Summary ---
Author Organization [facility] Address [address] [place] [address] Care Team Providers Care Laundromat Manager Name Role Phone Unavailable Primary Care [...] 2017 Imm-Zoster, Recombinant (1 of 2) 2022 [id number] ( season) 2023 021, 07/22/2020 Imm-Influenza (#1) 2023 Alcohol and Drug Screen 04/26/2024 Depression Annual Screen 04/26/2024 Insurance [facility] Member Subscriber Plan / Payer (Ef fective 2020-Present) Name:Cullen Montano Relation to Subscriber:Self Name:uCllen Montano Payer ID:[id number] Type:[employer] Address: [facility] [address] [place] [address]
[2024-06-16 18:10] LABS: Vitamin D 25-OH Total 24.9 ng/mL (>30)
[2024-06-16 18:23] LABS: Folate 10.2 ng/mL (> or = 4.0); Vitamin B12 622 pg/mL (200-900)
[2024-06-17 04:33] LABS: Prolactin 4.5 ng/mL (2.0-18.0)
[2024-06-20 05:08] LABS: Methylmalonic Acid 129 nmol/L (55-335)
== END 2024-06-16 15:40 | disposition home or self-care (01) ==
LOC: HO.WFDLDS 15:39
PROVIDERS: Physician Assistant Medical; Visit Provider Internal Medicine Endocrinology, Diabetes & Metabolism
DX: G47.9 Sleep disorder, unspecified (principal); R53.83 Other fatigue; R79.89 Other specified abnormal findings of blood chemistry
CPT/HCPCS: 36415; 82306; 82607; 82746; 83921; 84146

== ENCOUNTER 2024-06-19 15:59 | Outpatient (REF) | payer BC, SELFPAY ==
--- OUTSIDE RECORDS SUMMARY | 2024-06-19 18:10 | XMS_ITS | Data Portability ---
Author Organization [place] - [facility]geons [facility], [facility] Address [address] [place] [address] Care Team Providers Care Looping Machine Operator Name Role Phone JENI HAMMOND Primary Care Provider Assessment No assessment recorded. Plan of Treatment Reminders Order Date Submit Date Provider Last Modified By Organization Details Last Modified Time Details Appointments None recorded. Lab None recorded. Referral None recorded. Procedures None recorded. Surgeries None recorded. Imaging XR, cervical spine, 1 view - room 2 lateral cervical 2023 024 [facility], [address], [address], [place], [address], 4 08:10:49 XR, shoulder, 2 or more view - room 2 left shoulder/ lateral cervical 2023 024 [facility], [address], [address], [place], [address], 4 08:10:49 MRI, shoulder, w/o contrast - rct 2023 024 [facility] ([facility]), [address], [place], [address], 4 08:10:49 Medication Orders None recorded. Patient [...] a4ajBk vP9nXo QUaueC m3YtLR FvZlgJ JJ8mAn HZtai3 1h9186 AC0Kra nWFV6v eUC8mr 84%3D INTERFACE [facility] [address], [place], [address], 12/13/2023 12:58:46 12/13/19 24 12/13/2023 XR, cervi alejandro spine , 1 view [email or web address]:/ [email or web address] ?Encry pted=s hAaTro YD8dLq bEUv6g %2BXZw aYqtaq 0bqfl% 2Fg9IQ a4ajBk vP9nXo QUaueC m3YtLR FvZlg [place] HZtai3 2p5361 AC0Kra nWFV6v eUC8mr 84%3D INTERFACE [facility] [address], [place], [address], 12/13/2023 12:58:48 12/13/19 24 12/13/2023 XR, shoul javan, 2 or more view [email or web address]:/ [email or web address] ?Encry pted=s hAaTro YD8dLq bEUv6g %2BXZw aYqtaq 0bqfl% 2Fg9IQ a4ajBk vP9nXo QUaueC m3YtLR FvZlgJ JJ8mAn HZtai3 9h6181 AC0Kra nWFV6L eUC8mr 84%3D INTERFACE [facility] [address], [place], [address], 12/13/2023 13:02:23 12/13/19 24 12/13/2023 XR, shoul javan, 2 or more view [email or web address] ?Encry pted=s hAaTro YD8dLq bEUv6g %2BXZw aYqtaq 0bqfl% 2Fg9IQ a4ajBk vP9nXo QUaueC m3YtLR FvZlgJ JJ8mAn HZtai3 5s5170 AC0Kra nWFV6L eUC8mr 84%3D INTERFACE [facility] [address], [place], [address], 12/13/2023 13:02:24 12/20/19 24 12/18/2023 MRI, shoul javan, w/o contr ast [facility] Access ion Number : [id number] Patien t Name: Cullen Montano Record Number : [id number] Date of : 1970 Date of Exam: 2023 Referr ing Physic gopal: Rob crook, [facility]) [address] [facility], [address] [place] [address] Exam: MR Should er (C-) CPT 48810 - Left Room Descri ption: [place] [facility] Clinic al Histor y: [...] . Superi mposed tearin g of the parking technician ior labrum . Chroni c tear of [...] degene rative appear ing tear in the parking technician ior labrum . Bilobe d cystic struct ure adjace nt to the felicia inferi or labrum glenoi d is seen withou t defini te extens ion to the labrum to sugges t a para labral cyst. 3. Mild glenoh umeral and mild to modera te acromi oclavi cular degene rative change . Electr onical ly Signed By: Karen Clancy ra, MD [email or web address] [facility] ([facility]) [address], [place], [address], 12/24/2023 09:27:25 Result Notes None recorded. Problems Name Problem SNOMED Code Status Onset Date Resolution Date Notes Provider Name and Address Organization Details Recorded Time Pain of left shoulder joint 8696634723486 9109 Active 2023 Josué Jonas PA-C [address], [place], [address], [facility] 4 12:46:01 Neck pain 33005961 Active 2023 Josué Jonas PA-C [address], [place], [address], [facility] 4 12:46:57 Impingement syndrome of left shoulder region 7205452641850 04 Active 2023 Josué Jonas PA-C [address], [place], [address], [facility] 4 13:04:56 Derangement of left shoulder joint 1599757268640 9106 Active 2023 Josué Jonas PA-C [address], [place], [address], [facility] 4 13:06:03 Degenerativ e joint disease of shoulder region 86247503 Active 2023 Josué Jonas PA-C [address], [place], [address], [facility] 4 15:38:53 Problem Notes None recorded. Procedures Surgical History Date Name Laterality Status Provider Name and Address Organization Details Recorded Time Sports Shoulder 4&1 w/US completed Josué Jonas PA-C [address], [place], [address], [facility] 01/03/2024 15:38:38 Imaging Results Imaging Date Name Status LastModified by [facility] Details LastModified Time 12/13/2023 XR, cervical spine, 1 view completed INTERFACE [facility] [address], [place], [address], 12/13/2023 12:58:46 12/13/2023 XR, cervical spine, 1 view completed INTERFACE [facility] [address], [place], [address], 12/13/2023 12:58:48 12/13/2023 XR, shoulder, 2 or more view completed INTERFACE [facility] [address], [place], [address], 12/13/2023 13:02:23 12/13/2023 XR, shoulder, 2 or more view completed INTERFACE [facility] [address], [place], [address], 12/13/2023 13:02:24 12/18/2023 MRI, shoulder, w/o contrast completed [email or web address] [facility] ([facility]) [address], [place], [address], 12/24/2023 09:27:25 Procedure Notes None recorded. Medical [...] Updated DateTime 12/13/2023 177.8 cm 31.1 kg/m2 68383.54 g Josué Jonas PA-C [address], [address], [facility] 12/13/2023 12:45:07 Date Recorded Body height Body mass index (BMI) Body weight Provider Name and Address Organization Details Last Updated DateTime 01/03/2024 177.8 cm 31.1 kg/m2 99934.54 g Josué Jonas PA-C [address] [facility] [address] [address], [place], [address], [facility] 01/03/2024 14:59:28 Social History None recorded. Functional Status None recorded. Mental Status None recorded. Family History Nothing Reported. Medical History Condition Response Arthritis Y Cholesterol Y Past Encounters Encounter ID Performer Location Encounter Start Date Encounter Closed Date Diagnosis/Indication Diagnosis SNOMED-CT Code Diagnosis ICD10 Code Diagnosis Note [id number] DENIA Butterfield 3rd floor [address] [address] 12/13/2023 12:27:51 12/30/2023 08:10:49 Pain of left shoulder joint [id number] 3659179 M25.512 Neck pain 81217978 M54.2 Impingemen t syndrome of left shoulder region 2994390810 32260 M75.42 Derangemen t of left shoulder joint 9231982126 4162821 M24.313 [id number] DENIA Butterfield Clinical [address] [place] [address] 01/03/2024 14:54:33 01/13/2024 12:54:11 Degenerative joint disease of shoulder region 74264529 M19.019 Health Concerns Section Related Observation LastModified by Organization Detai ls LastModified Time None Recorded Concern Status LastModified by Organization Details LastModified Time None Recorded Advance Directives Directive None Recorded Payers Encounter Date Sequence Insurance Name Policy Number Policy Gibson Covered Member ID Gibson Member ID Guarantor Name 12/13/2023 1 [place] [id number] Cullen Silveriolow [id number] Cullen Silveriolow 01/03/2024 1 [place] [id number] Cullen Silveriolow [id number] Cullen Montano Notes Date Note Type [...] ordered, obtained and independently reviewed today at [facility]. Four views of the left shoulder demonstrate [...] results and definitive care going forward. [facility] speech recognition cake press operator software was used to create portions of this document. An attempt at proofreading has been made to minimize errors. Please call for corrections. Josué Jonas PA-C [address], [place], [address], [facility] - [facility] 12/13/2023 13:11:35 01/03/2024 text/html [...] ordered, obtained and independently reviewed today at [facility]. Four views of the left shoulder demonstrate [...] distal clavicle excision sometime in the future. [employer] [facility] speech recognition cake press operator software was used to create portions of this document. An attempt at proofreading has been made to minimize errors. Please call for corrections. Josué Jonas PA-C [address] [place] [address] [address], [place], [address], [facility] 01/03/2024 15:39:17
--- OUTSIDE RECORDS SUMMARY | 2024-06-19 18:10 | XMS_ITS | Clinical Summary ---
Author Organization [facility] Address [address] [place] [address] Care Team Providers Care Wet Process Assistant Head Miller Name Role Phone Unavailable Primary Care Provider [...] 2017 Imm-Zoster, Recombinant (1 of 2) 2022 Tep-BKTVD-37 ( season) 2023 021, 07/22/2020 Imm-Influenza (#1) 2023 Alcohol and Drug Screen 04/26/2024 Depression Annual Screen 04/26/2024 Insurance [facility] Member Subscriber Plan / Payer (Ef fective 2020-Present) Name:Cullen Montano Relation to Subscriber:Self Name:Cullen Montano Payer ID:[id number] Type:[employer] Address: [facility] [address] [place] [address]
[2024-06-19 18:54] LABS: Ferritin 585 ng/mL (20-250)
== END 2024-06-19 16:00 | disposition home or self-care (01) ==
LOC: HO.WFDLDS 15:59
PROVIDERS: Visit Provider Physician Assistant
DX: R79.89 Other specified abnormal findings of blood chemistry (principal)
CPT/HCPCS: 36415; 81256; 82728

== ENCOUNTER 2024-07-01 06:30 | Outpatient (REF) | payer BC, SELFPAY ==
[2024-07-01 07:25] LABS: MANUAL DIFF FLAG NO
[2024-07-01 07:41] LABS: Basophils Percent Auto 0.5 % (0-2); Eosinophils Absolute Auto 0.2 X10*3/uL (0.0-0.4); Eosinophils Percent Auto 2.8 % (0-4); Hematocrit 42.3 % (42.0-52.0); Hemoglobin 14.6 g/dl (14.0-18.0); Imm Gran Abs Auto 0.03 X10*3/uL (0.00-0.03); Imm Gran Pct Auto 0.4 % (0.0-0.4); Lymphocytes Percent Auto 46.7 % (20-40); Mean Corpuscular HGB Conc 34.5 g/dl (31.0-36.0); Mean Corpuscular Hemoglobin 32.7 pg (27.0-33.0); Mean Corpuscular Volume 94.6 fL (80.0-98.0); Mean Platelet Volume 10.8 fL (9.4-12.4); Monocytes Absolute Auto 0.7 X10*3/uL (0.1-1.2); Monocytes Percent Auto 8.2 % (2-11); Neutrophils Absolute Auto 3.6 x10*3/uL (2.0-8.3); Neutrophils Percent Auto 41.4 % (45-73); Platelet Count 198 X10*3/uL (160-400); Red Blood Count 4.47 X10*6/uL (4.60-5.80); Red Cell Distribution Width 12.6 % (11.0-16.0); White Blood Count 8.6 X10*3/uL (4.8-10.8)
[2024-07-01 08:06] LABS: Alanine Aminotransferase 44 U/L (0-40); Albumin Level 4.6 g/dL (3.5-5.0); Alkaline Phosphatase 69 U/L (39-117); Anion Gap 11 (12-20); Aspartate Amino Transferase 26 U/L (5-37); Bilirubin Total 0.9 mg/dL (0.0-1.0); Blood Urea Nitrogen 14 mg/dL (9-16); Calcium 9.1 mg/dL (8.4-10.2); Carbon Dioxide 26 mmol/L (22-29); Chloride 106 mmol/L (96-108); Cholesterol 189 mg/dL (<200); Estimated Glomerular Filt Rate > 60; Glucose Fasting 100 mg/dL (60-99); HDL Cholesterol 27 mg/dL (>40); Iron 120 mcg/dL (45-160); LDL Cholesterol Calculated 117 mg/dL (<100); Percent Iron Saturation 41 % (15-50); Potassium 4.3 mmol/L (3.3-5.1); Sodium 139 mmol/L (135-145); Total Iron Binding Capacity 291 mcg/dL (228-428); Total Protein 7.9 g/dL (6.5-8.0); Triglycerides 229 mg/dL (<150); Unsaturated Iron Binding 171 ug/dL
[2024-07-03 16:22] LABS: Homocysteine 11.6 umol/L (<11.4)
== END 2024-07-01 06:31 | disposition home or self-care (01) ==
LOC: HO.LAB 06:30
PROVIDERS: Physician Assistant Medical; PCP Physician Assistant; Visit Provider Physician Assistant
DX: R79.89 Other specified abnormal findings of blood chemistry (principal); E78.5 Hyperlipidemia, unspecified; G47.9 Sleep disorder, unspecified; R53.83 Other fatigue
CPT/HCPCS: 36415; 80053; 80061; 83090; 83540; 85025

== ENCOUNTER 2024-07-22 07:53 | Outpatient (REF) | payer BC, SELFPAY ==
[2024-07-22 08:34] LABS: MANUAL DIFF FLAG NO
[2024-07-22 09:19] LABS: Basophils Absolute Auto 0.1 X10*3/uL (0.0-0.2); Basophils Percent Auto 0.7 % (0-2); Eosinophils Absolute Auto 0.2 X10*3/uL (0.0-0.4); Eosinophils Percent Auto 2.5 % (0-4); Hemoglobin 15.1 g/dl (14.0-18.0); Imm Gran Abs Auto 0.03 X10*3/uL (0.00-0.03); Imm Gran Pct Auto 0.4 % (0.0-0.4); Lymphocytes Absolute Auto 3.9 X10*3/uL (1.2-4.9); Lymphocytes Percent Auto 53.2 % (20-40); Mean Corpuscular HGB Conc 34.3 g/dl (31.0-36.0); Mean Corpuscular Hemoglobin 32.8 pg (27.0-33.0); Mean Corpuscular Volume 95.7 fL (80.0-98.0); Monocytes Absolute Auto 0.5 X10*3/uL (0.1-1.2); Monocytes Percent Auto 6.9 % (2-11); Neutrophils Absolute Auto 2.6 x10*3/uL (2.0-8.3); Neutrophils Percent Auto 36.3 % (45-73); Platelet Count 197 X10*3/uL (160-400); Red Cell Distribution Width 12.7 % (11.0-16.0); White Blood Count 7.3 X10*3/uL (4.8-10.8)
[2024-07-22 10:02] LABS: Prostate Specific Antigen 0.56 ng/mL (<0.05-4.0)
[2024-07-22 10:31] LABS: Albumin Level 4.8 g/dL (3.5-5.0); Alkaline Phosphatase 68 U/L (39-117); Anion Gap 9 (12-20); Aspartate Amino Transferase 31 U/L (5-37); Bilirubin Total 0.8 mg/dL (0.0-1.0); Blood Urea Nitrogen 15 mg/dL (9-16); Calcium 9.6 mg/dL (8.4-10.2); Carbon Dioxide 27 mmol/L (22-29); Chloride 109 mmol/L (96-108); Estimated Glomerular Filt Rate > 60; Glucose Fasting 95 mg/dL (60-99); Potassium 4.3 mmol/L (3.3-5.1); Sodium 141 mmol/L (135-145)
[2024-07-22 11:00] LABS: Alanine Aminotransferase 47 U/L (0-40)
[2024-07-27 18:38] LABS: Testosterone, Free 61.7 pg/mL (35.0-155.0); Testosterone, Total 218 ng/dL (250-1100)
== END 2024-07-22 07:54 | disposition home or self-care (01) ==
LOC: HO.LAB 07:53
PROVIDERS: PCP Physician Assistant; Visit Provider Internal Medicine Endocrinology, Diabetes & Metabolism
DX: R79.89 Other specified abnormal findings of blood chemistry (principal); E78.5 Hyperlipidemia, unspecified; Z12.5 Encounter for screening for malignant neoplasm of prostate
CPT/HCPCS: 36415; 80053; 84153; 84402; 84403; 85025

== ENCOUNTER 2024-07-27 06:07 | Outpatient (REF) | payer BC, SELFPAY ==
--- OUTSIDE RECORDS SUMMARY | 2024-07-27 06:09 | XMS_ITS | Data Portability ---
Author Organization [place] - [facility], [facility] Address [address] [place] [address] Care Team Providers Care Water Maintenance Supervisor Name Role Phone JENI HAMMOND Primary Care Provider [phone] Assessment No assessment recorded. Plan of Treatment Reminders Order Date Submit Date Provider Last Modified By Organization Details Last Modified Time Details Appointments None recorded. Lab None recorded. Referral None recorded. Procedures None recorded. Surgeries None recorded. Imaging XR, cervical spine, 1 view - room 2 lateral cervical 2023 024 [facility], [address], [address], [place], [address], 4 08:10:49 XR, shoulder, 2 or more view - room 2 left shoulder/ lateral cervical 2023 024 [facility], [address], [address], [place], [address], 4 08:10:49 MRI, shoulder, w/o contrast - rct 2023 024 [facility] ([facility]), [address], [place], [address], 4 08:10:49 Medication Orders None recorded. Patient [...] a4ajBk vP9nXo QUaueC m3YtLR FvZlgJ JJ8mAn HZtai3 2c2916 AC0Kra nWFV6v eUC8mr 84%3D INTERFACE [facility] [address], [place], [address], 12/13/2023 12:58:46 12/13/19 24 12/13/2023 XR, cervi alejandro spine , 1 view http:/ [email or web address] ?Encry pted=s hAaTro YD8dLq bEUv6g %2BXZw aYqtaq 0bqfl% 2Fg9IQ a4ajBk vP9nXo QUaueC m3YtLR FvZlg JJ8Makanda HZtai3 5i2273 AC0Kra nWFV6v eUC8mr 84%3D INTERFACE [facility] [address], [place], [address], 12/13/2023 12:58:48 12/13/19 24 12/13/2023 XR, shoul javan, 2 or more view [email or web address]:/ [email or web address] ?Encry pted=s hAaTro YD8dLq bEUv6g %2BXZw aYqtaq 0bqfl% 2Fg9IQ a4ajBk vP9nXo QUaueC m3YtLR FvZlgJ JJ8mAn HZtai3 0y5809 AC0Kra nWFV6L eUC8mr 84%3D INTERFACE [facility] [address], [place], [address], 12/13/2023 13:02:23 12/13/19 24 12/13/2023 XR, shoul javan, 2 or more view [email or web address] ?Encry pted=s hAaTro YD8dLq bEUv6g %2BXZw aYqtaq 0bqfl% 2Fg9IQ a4ajBk vP9nXo QUaueC m3YtLR FvZlgJ JJ8mAn HZtai3 7h5910 AC0Kra nWFV6L eUC8mr 84%3D INTERFACE [facility] [address], [place], [address], 12/13/2023 13:02:24 12/20/19 24 12/18/2023 MRI, shoul javan, w/o contr ast [facility] Access ion Number : [id number] Patien t Name: Cullen Montano Record Number : [id number] Date of : 1970 Date of Exam: 2023 Referr ing Physic gopal: Rob crook, [facility]) [address] [facility], [address] [place] [address] Exam: MR Should er (C-) CPT 08321 - Left Room Descri ption: [place] [facility] Pion 3T Clinic al Histor y: [...] . 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 Chroni c tear of [...] degene rative appear ing tear in the vehicle return associate ior labrum . Bilobe d cystic struct ure adjace nt to the felicia inferi or labrum glenoi d is seen withou t defini te extens ion to the labrum to sugges t a para labral cyst. 3. Mild glenoh umeral and mild to modera te acromi oclavi cular degene rative change . Electr onical ly Signed By: Karen Clancy ra, MD [email or web address] [facility] ([facility]) [address], [place], [address], 12/24/2023 09:27:25 Result Notes None recorded. Problems Name Problem SNOMED Code Status Onset Date Resolution Date Notes Provider Name and Address Organization Details Recorded Time Pain of left shoulder joint 7309665428451 9109 Active 2023 Josué Jonas PA-C [address], [place], [address], [facility] [facility] 4 12:46:01 Neck pain 71146563 Active 2023 Josué Jonas PA-C [address], [place], [address], [facility] 4 12:46:57 Impingement syndrome of left shoulder region 8719717220867 04 Active 2023 Josué Jonas PA-C [address], [place], [address], [facility] 4 13:04:56 Derangement of left shoulder joint 3402182788380 9106 Active 2023 Josué Jonas PA-C [address], [place], [address], [facility] 4 13:06:03 Degenerativ e joint disease of shoulder region 40279868 Active 2023 Josué Jonas PA-C [address], [place], [address], [facility] 4 15:38:53 Problem Notes None recorded. Procedures Surgical History Date Name Laterality Status Provider Name and Address Organization Details Recorded Time Sports Shoulder 4&1 w/US completed Josué Jonas PA-C [address], [place], [address], [facility] 01/03/2024 15:38:38 Imaging Results Imaging Date Name Status LastModified by Organ [facility] Details LastModified Time 12/13/2023 XR, cervical spine, 1 view completed INTERFACE [facility] [address], [place], [address], 12/13/2023 12:58:46 12/13/2023 XR, cervical spine, 1 view completed INTERFACE [facility] [address], [place], [address], 12/13/2023 12:58:48 12/13/2023 XR, shoulder, 2 or more view completed INTERFACE [facility] [address], [place], [address], 12/13/2023 13:02:23 12/13/2023 XR, shoulder, 2 or more view completed INTERFACE [facility] [address], [place], [address], 12/13/2023 13:02:24 12/18/2023 MRI, shoulder, w/o contrast completed [email or web address] [facility] ([facility]) [address], [place], [address], 12/24/2023 09:27:25 Procedure Notes None recorded. Medical [...] Updated DateTime 12/13/2023 177.8 cm 31.1 kg/m2 46374.54 g Josué Jonas PA-C [address], [address], [facility] 12/13/2023 12:45:07 Date Recorded Body height Body mass index (BMI) Body weight Provider Name and Address Organization Details Last Updated DateTime 01/03/2024 177.8 cm 31.1 kg/m2 66768.54 g Josué Jonas PA-C [address] [address], [place], [address], [facility] 01/03/2024 14:59:28 Social History None recorded. Functional Status None recorded. Mental Status None recorded. Family History Nothing Reported. Medical History Condition Response Arthritis Y Cholesterol Y Past Encounters Encounter ID Performer Location Encounter Start Date Encounter Closed Date Diagnosis/Indication Diagnosis SNOMED-CT Code Diagnosis ICD10 Code Diagnosis Note [id number] DENIA Butterfield 3rd floor [address] [place] [address] 12/13/2023 12:27:51 12/30/2023 08:10:49 Pain of left shoulder joint 0272660883 5871761 M25.512 Neck pain 68396128 M54.2 Impingemen t syndrome of left shoulder region 3995712638 58417 M75.42 Derangemen t of left shoulder joint 5497458608 8227653 M24.389 [id number] DENIA [facility] Clinical [address] [place] [address] 01/03/2024 14:54:33 01/13/2024 12:54:11 Degenerative joint disease of shoulder region 88357002 M19.019 Health Concerns Section Related Observation LastModified by Organization Detai ls LastModified Time None Recorded Concern Status LastModified by Organization Details LastModified Time None Recorded Advance Directives Directive None Recorded Payers Encounter Date Sequence Insurance Name Policy Number Policy Gibson Covered Member ID Gibson Member ID Guarantor Name 12/13/2023 1 [place] [id number] Cullen Silveriolow [id number] Cullen Silveriolow 01/03/2024 1 [place] [id number] Cullen Silveriolow [id number] Cullen Montano Notes Date Note Type [...] ordered, obtained and independently reviewed today at [facility]. Four views of the left shoulder [...] discuss results and definitive care going forward. [facility] [employer] [facility] speech recognition dropper tank storage software was used to create portions of this document. An attempt at proofreading has been made to minimize errors. Please call for corrections. Josué Jonas PA-C [address] [facility] [address], [place], [address], [facility] [facility] 12/13/2023 13:11:35 01/03/2024 text/html [...] ordered, obtained and independently reviewed today at [facility]. Four views of the left shoulder [...] distal clavicle excision sometime in the future. [employer] speech recognition dropper tank storage software was used to create portions of this document. An attempt at proofreading has been made to minimize errors. Please call for corrections. Josué Jonas PA-C [address] [place] [address] [address], [place], [address], [facility] [facility] 01/03/2024 15:39:17
--- OUTSIDE RECORDS SUMMARY | 2024-07-27 06:10 | XMS_ITS | Clinical Summary ---
Author Organization [facility] Address [address] [place] [address] Care Team Providers Care Buffing And Sueding Machine Operator Name Role Phone Unavailable Primary Care Provider Unavailabl e Source Comments PLEASE NOTE, if this patient is a minor, it may be UNLAWFUL to discuss sensitive information that is contained in these records (such as FAMILY PLANNING, MENTAL HEALTH or SUBSTANCE ABUSE) with the minor patient's parent or other person without the patient's specific authorization.[facility] Immunizations Immunization Administration Dates Next Due Moderna COVID-19 Vaccine, [...] 2017 Imm-Zoster, Recombinant (1 of 2) 2022 Nah-VENIY-26 ( season) 2023 021, 07/22/2020 Imm-Influenza (#1) 2023 Alcohol and Drug Screen 04/26/2024 Depression Annual Screen 04/26/2024 Insurance [facility] Member Subscriber Plan / Payer (Ef fective 2020-Present) Name:Cullen Montano Relation to Subscriber:Self Name:Cullen Montano Subscriber ID:Not on file Payer ID:[id number] Group ID:Not on file Type:[employer] Address: [address] [place] [id number] [facility] Member Subscriber Plan / Payer (Ef fective 2020-Present) Name:Cullen Montano Relation to Subscriber:Self Name:Cullen Montano Payer ID:[id number] Type:[employer] Address: [facility] [address] [place] [address]
[2024-08-03 13:49] LABS: Testosterone, Free 40.7 pg/mL (35.0-155.0); Testosterone, Total 147 ng/dL (250-1100)
== END 2024-07-27 06:08 | disposition home or self-care (01) ==
LOC: HO.LAB 06:07
PROVIDERS: PCP Physician Assistant; Visit Provider Internal Medicine Endocrinology, Diabetes & Metabolism
DX: Z13.89 Encounter for screening for other disorder (principal)
CPT/HCPCS: 36415; 84402; 84403

== ENCOUNTER 2024-08-17 15:14 | Outpatient (AMB) | payer BC, SELFPAY ==
--- NOTE | 2024-08-17 15:20 | MHC.PC.OV ---
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 His surgery is scheduled on 08/31/2024 at the [facility] dental implant center. CV: Blood pressure today in the office is 138/78. He is not have a history of hypertension. His cholesterol is managed with Crestor and fish oil. He also works hard on diet and lifestyle. No chest pain, shortness on breath or palpitations. He is not on aspirin or blood thinners. He is very physically active and states that he could run around the building without any issues. He goes up a flight of stairs without any shortness on breath or chest pain. PULM: Compliant with CPAP. No recent lung infections. No history of asthma or COPD. GI: Does have a history of mildly elevated LFTs and ferritin and has an appointment scheduled in September with GI. Had a normal abdominal ultrasound. [facility] Medical History Low testosterone in male Arthritis Tachycardia Obesity, Class I, BMI 30-34.9 Hyperlipidemia Hx of pneumothorax Hx of Lyme disease Hx of fracture of rib Dyslipidemia Surgical History No pertinent past surgical history Family History Mother Breast cancer Father Colon cancer Diabetes mellitus Heart disease Hypercholesteremia HTN (hypertension) Cardiovascular disease Maternal Aunt No problems noted. 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 1. Little interest or pleasure in doing things: not at all 2. Feeling down, depressed, or hopeless: not at all 3. Trouble falling or staying asleep, or sleeping too much: not at all 4. Feeling tired or having little energy: not at all 5. Poor appetite or overeating: not at all 6. Feeling bad about yourself - or that you are a failure or have let yourself or your family down: not at all 7. Trouble concentrating on things, such as reading the newspaper or watching television: not at all 8. Moving or speaking so slowly that other people could have noticed. Or the opposite - being so fidgety or restless that you have been moving around a lot more than usual: not at all 9. Thoughts that you would be better off or of hurting yourself in some way: not at all Total score: 0 Source: Developed by Drs. Shashank Smith, Janet Arzate, Berry Green and colleagues, with an educational bora from [employer]. Thrive Questionnaire Date Thrive assessed: 03/19/24 I am a: Patient What is your living situation today?: I have a steady place to live Within the past 12 months, did the food you bought not last and you didn't have the money to get more?: Never true Within the past 12 months, did you worry whether your food would run out before you got money to buy more?: Never true Do you have trouble paying for medicines?: No Do you have trouble getting transportation to medical appointments?: No Do you have trouble paying your heating and electricity bill?: No Do you have trouble taking care of your child, family member or friend?: No Do you have trouble with day-to-day activities such as bathing, preparing meals, shopping, managing finances, etc.?: No Are you currently unemployed and looking for a job?: No Are you interested in more education?: No Please select the resources that you would like help with: None Currently or been in a relationship where the following occur: No concerns reported THRIVE Score: 0 AUDIT C Alcohol Use Questionnaire (AUDIT-C) 1. How often do you have a drink containing alcohol?: 2-4 times a month 2. How many drinks containing alcohol do you have on a typical day when you are drinking?: 3 or 4 3. How often do you have six or more drinks on one occasion?: Never Total Score: 3 JANET-7 AMB Questionnaire JANET-7 Date JANET - 7 assessed: 03/22/24 Feeling nervous, anxious, or on edge: 0 = Not at all Not being able to stop or control worryin = Not at all Worrying too much about different things: 0 = Not at all Trouble relaxin = Not at all Being so restless that it is hard to sit still: 0 = Not at all Becoming easily annoyed or irritable: 0 = Not at all Feeling afraid as if something awful might happen: 0 = Not at all Total JANET-7 score (0-4 normal; 5-9 mild; 10-14 moderate; 15-21 severe): 0 Source: Developed by Drs. Shashank Smith, Janet Arzate, Berry Green and colleagues, with an educational bora from [employer]. Physical exam (Primary Care) Vital Signs: Last Vital Signs Pulse 101 H 08/17/24 15:24 Resp 16 08/17/24 15:24 BP 138/78 08/17/24 15:24 Pulse Ox 94 08/17/24 15:24 Oxygen Delivery Method Room Air 08/17/24 15:24 BMI result Body Mass Index 33.9 Tobacco/Smoking Status: Tobacco use Status Tobacco use date assessed 09/29/23 08/17/24 15:21 Patient Tobacco Use Status Former Tobacco user 08/17/24 15:24 e-Cigarette/Vaping Use Never Used 08/17/24 15:21 PHQ-9: PHQ-9 Score PHQ-9: Total score 0 08/17/24 15:21 Thrive Assessment: Date of Thrive Assessment Date Thrive assessed 03/19/24 08/17/24 15:21 Currently or been in a relationship where the following occur: No concerns reported Const Orientation/consciousness: patient oriented x3 HENMT Ears: hearing grossly normal bilaterally Neck Thyroid: Thyroid normal Lymphatic: no lymphadenopathy noted Resp Auscultation: clear to auscultation bilaterally Cardio Rate: regular rate Rhythm: regular rhythm Heart sounds: S1 normal heart sound present and S2 normal heart sound present GI Inspection: Yes normal to inspection Palpation (GI): Soft to palpation and Other GI palpation findings present (nontender, no cva tenderness) Auscultation: normoactive bowel sounds Rectal Exam - Male: Yes deferred Skin General skin exam: no rashes or lesions noted Neuro General: patient oriented x3, gait normal and no focal motor deficits Office Procedures EKG Details: EKG today is normal sinus rhythm at a rate of 94 beats per minute with nonspecific STT wave abnormalities. No prior study to compare. EKG interpreted myself and Dr. Dumont. 55243-Ukvebblsoxevytflz, Complete Results Reviewed Results Reviewed: Laboratory Tests 07/22/24 08:33 WBC 7.3 RBC 4.60 Hgb 15.1 Hct 44.0 Plt Count 197 Sodium 141 Potassium 4.3 Chloride 109 H Carbon Dioxide 27 Anion Gap 9 L BUN 15 Creatinine 0.99 Estimated GFR > 60 Fasting Glucose 95 Calcium 9.6 Total Bilirubin 0.8 AST 31 ALT 47 H Alkaline Phosphatase 68 Total Protein 8.0 Albumin 4.8 Coding Level of Care Code Est Pt Level 4 (99796) Complex EM visit Add On G2211 Diagnoses Pre-op exam Z01.818 Dyslipidemia E78.5 Mild obstructive sleep apnea G47.33 CPT Codes EKG - CPT: 70859-Vofdoimukhjpewbut, Complete ([id number]) Assessment & Plan Assessment & Plan (1) Pre-op exam: Code(s): Z01.818 - Encounter for other preprocedural examination Category: Medical Plan: EKG listed above. Labs reviewed and provided in the note. Patient is at average risk for this routine procedure. Advised him to avoid NSAIDs and aspirin prior to surgery. Medications reconciled. We will fax over note. (2) Dyslipidemia: Code(s): E78.5 - Hyperlipidemia, unspecified Category: Medical Plan: We will recheck lipids and LFTs. Has a appointment with GI. (3) Mild obstructive sleep apnea: Code(s): G47.33 - Obstructive sleep apnea (adult) (pediatric) Category: Medical Plan: Following with sleep Medicine. On CPAP and compliant. Orders: Orders Liver Panel Today E78.5 - Hyperlipidemia, unspecified, G47.33 - Obstructive sleep apnea (adult) (pediatric), R73.01 - Impaired fasting glucose Basic Metabolic Panel Today E78.5 - Hyperlipidemia, unspecified, G47.33 - Obstructive sleep apnea (adult) (pediatric), R73.01 - Impaired fasting glucose IRON PROFILE Today E78.5 - Hyperlipidemia, unspecified, G47.33 - Obstructive sleep apnea (adult) (pediatric), R73.01 - Impaired fasting glucose Hemoglobin A1c Today E78.5 - Hyperlipidemia, unspecified, G47.33 - Obstructive sleep apnea (adult) (pediatric), R73.01 - Impaired fasting glucose Complete Blood Count Auto Diff Today E78.5 - Hyperlipidemia, unspecified, G47.33 - Obstructive sleep apnea (adult) (pediatric), R73.01 - Impaired fasting glucose Ferritin Today E78.5 - Hyperlipidemia, unspecified, G47.33 - Obstructive sleep apnea (adult) (pediatric), R73.01 - Impaired fasting glucose TSH reflex Free T4 Today E78.5 - Hyperlipidemia, unspecified, G47.33 - Obstructive sleep apnea (adult) (pediatric), R73.01 - Impaired fasting glucose Lipid Panel Today E78.5 - Hyperlipidemia, unspecified
[2024-08-17 15:24] VITALS: BP 138/78; PULSE 101; RESP 16; O2SAT 94; BMI 33.9
--- OUTSIDE RECORDS SUMMARY | 2024-08-17 17:57 | XMS_ITS | Data Portability ---
Author Organization [place] - [facility], [facility] Address [address] [place] [address] Care Team Providers Care Fuse Maker Name Role Phone JENI HAMMOND Primary Care Provider [phone] Assessment No assessment recorded. Plan of Treatment Reminders Order Date Submit Date Provider Last Modified By Organization Details Last Modified Time Details Appointments None recorded. Lab None recorded. Referral None recorded. Procedures None recorded. Surgeries None recorded. Imaging XR, cervical spine, 1 view - room 2 lateral cervical 2023 024 [facility], [address], [address], [place], [address], 4 08:10:49 XR, shoulder, 2 or more view - room 2 left shoulder/ lateral cervical 2023 024 [facility], [address], [address], [place], [address], 4 08:10:49 MRI, shoulder, w/o contrast - rct 2023 024 [facility] ([facility] [address], [place], [address], 4 08:10:49 Medication Orders None recorded. Patient [...] a4ajBk vP9nXo QUaueC m3YtLR FvZlgJ JJ8mAn HZtai3 4n9655 AC0Kra nWFV6v eUC8mr 84%3D INTERFACE [facility] [address], [place], [address], 12/13/2023 12:58:46 12/13/19 24 12/13/2023 XR, cervi alejandro spine , 1 view [email or web address]:/ [email or web address] ?Encry pted=s hAaTro YD8dLq bEUv6g %2BXZw aYqtaq 0bqfl% 2Fg9IQ a4ajBk vP9nXo QUaueC m3YtLR FvZlg [place] HZtai3 0z9901 AC0Kra nWFV6v eUC8mr 84%3D INTERFACE [facility] [address], [place], [address], 12/13/2023 12:58:48 12/13/19 24 12/13/2023 XR, shoul javan, 2 or more view [email or web address] ?Encry pted=s hAaTro YD8dLq bEUv6g %2BXZw aYqtaq 0bqfl% 2Fg9IQ a4ajBk vP9nXo QUaueC m3YtLR FvZlgJ JJ8mAn HZtai3 9y0545 AC0Kra nWFV6L eUC8mr 84%3D INTERFACE [facility] [address], [place], [address], 12/13/2023 13:02:23 12/13/19 24 12/13/2023 XR, shoul javan, 2 or more view [email or web address] ?Encry pted=s hAaTro YD8dLq bEUv6g %2BXZw aYqtaq 0bqfl% 2Fg9IQ a4ajBk vP9nXo QUaueC m3YtLR FvZlgJ JJ8mAn HZtai3 7c0903 AC0Kra nWFV6L eUC8mr 84%3D INTERFACE [facility] [address], [place], [address], 12/13/2023 13:02:24 12/20/19 24 12/18/2023 MRI, shoul javan, w/o contr ast [facility] Access ion Number : [id number] Patien t Name: Cullen Montano Record Number : [id number] Date of : 1970 Date of Exam: 2023 Referr ing Physic gopal: Rob crook, [facility] [address] [facility], [address] [place] [address] Exam: MR Should er (C-) CPT 55069 - Left Room Descri ption: [place] [facility] 3T Clinic al Histor y: [...] . Superi mposed tearin g of the processing archivist ior labrum . Chroni c tear of [...] degene rative appear ing tear in the processing archivist ior labrum . Bilobe d cystic struct ure adjace nt to the felicia inferi or labrum glenoi d is seen withou t defini te extens ion to the labrum to sugges t a para labral cyst. 3. Mild glenoh umeral and mild to modera te acromi oclavi cular degene rative change . Electr onical ly Signed By: Karen Clancy ra, MD [email or web address] [facility] ([facility]) [address], [place], [address], 12/24/2023 09:27:25 Result Notes None recorded. Problems Name Problem SNOMED Code Status Onset Date Resolution Date Notes Provider Name and Address Organization Details Recorded Time Pain of left shoulder joint 4833936585851 9109 Active 2023 Josué Jonas PA-C [address], [place], [address], [facility] 4 12:46:01 Neck pain 94525824 Active 2023 Josué Jonas PA-C [address], [place], [address], [facility] 4 12:46:57 Impingement syndrome of left shoulder region 0912133981111 04 Active 2023 Josué Jonas PA-C [address], [place], [address], [facility] 4 13:04:56 Derangement of left shoulder joint 2475293325498 9106 Active 2023 Josué Jonas PA-C [address], [place], [address], [facility] 4 13:06:03 Degenerativ e joint disease of shoulder region 20580765 Active 2023 Josué Jonas PA-C [address], [place], [address], [facility] 4 15:38:53 Problem Notes None recorded. Procedures Surgical History Date Name Laterality Status Provider Name and Address Organization Details Recorded Time Sports Shoulder 4&1 w/US completed Josué Jonas PA-C [address], [place], [address], [facility] 01/03/2024 15:38:38 Imaging Results Imaging Date Name Status LastModified by [facility] Details LastModified Time 12/13/2023 XR, cervical spine, 1 view completed INTERFACE [facility] [address], [place], [address], 12/13/2023 12:58:46 12/13/2023 XR, cervical spine, 1 view completed INTERFACE [facility] [address], [place], [address], 12/13/2023 12:58:48 12/13/2023 XR, shoulder, 2 or more view completed INTERFACE [facility] [address], [place], [address], 12/13/2023 13:02:23 12/13/2023 XR, shoulder, 2 or more view completed INTERFACE [facility] [address], [place], [address], 12/13/2023 13:02:24 12/18/2023 MRI, shoulder, w/o contrast completed [facility] ([facility]) [address], [place], [address], 12/24/2023 09:27:25 Procedure Notes None recorded. Medical [...] Updated DateTime 12/13/2023 177.8 cm 31.1 kg/m2 60516.54 g Josué Jonas PA-C [address] [employer], [address], [facility] 12/13/2023 12:45:07 Date Recorded Body height Body mass index (BMI) Body weight Provider Name and Address Organization Details Last Updated DateTime 01/03/2024 177.8 cm 31.1 kg/m2 15254.54 g Josué Jonas PA-C [address] [facility] [address], [place], [address], [facility] 01/03/2024 14:59:28 Social History None recorded. Functional Status None recorded. Mental Status None recorded. Family History Nothing Reported. Medical History Condition Response Arthritis Y Cholesterol Y Past Encounters Encounter ID Performer Location Encounter Start Date Encounter Closed Date Diagnosis/Indication Diagnosis SNOMED-CT Code Diagnosis ICD10 Code Diagnosis Note [id number] DENIA [facility] 3rd floor [address] [place] [address] 12/13/2023 12:27:51 12/30/2023 08:10:49 Pain of left shoulder joint 0181074020 9012863 M25.512 Neck pain 16265469 M54.2 Impingemen t syndrome of left shoulder region 7399653520 09779 M75.42 Derangemen t of left shoulder joint 2949123215 6688563 M24.016 [id number] DENIA [facility] [address] [place] [address] 01/03/2024 14:54:33 01/13/2024 12:54:11 Degenerative joint disease of shoulder region 92316212 M19.019 Health Concerns Section Related Observation LastModified by Organization Detai ls LastModified Time None Recorded Concern Status LastModified by Organization Details LastModified Time None Recorded Advance Directives Directive None Recorded Payers Encounter Date Sequence Insurance Name Policy Number Policy Gibson Covered Member ID Gibson Member ID Guarantor Name 12/13/2023 1 [place] [id number] Cullen Silveriolow [id number] Cullen Silveriolow 01/03/2024 1 [place] [id number] Cullen Silveriolow [id number] Cullen Montano Notes Date Note Type [...] ordered, obtained and independently reviewed today at [facility]. Four views of the left shoulder demonstrate [...] results and definitive care going forward. [facility] speech recognition loop sewer software was used to create portions of this document. An attempt at proofreading has been made to minimize errors. Please call for corrections. Josué Jonas PA-C [address] [facility] [address], [place], [address], [facility] 12/13/2023 13:11:35 01/03/2024 text/html [...] ordered, obtained and independently reviewed today at [facility]. Four views of the left shoulder demonstrate [...] distal clavicle excision sometime in the future. [employer] [facility] speech recognition loop sewer software was used to create portions of this document. An attempt at proofreading has been made to minimize errors. Please call for corrections. Josué Jonas PA-C [address] [place] [address] [address], [place], [address], [facility] 01/03/2024 15:39:17
--- OUTSIDE RECORDS SUMMARY | 2024-08-17 17:57 | XMS_ITS | Clinical Summary ---
Author Organization [facility] Address [address] [place] [address] Care Team Providers Care Head Chopper Name Role Phone Danny Busch MD Primary Care Provider Unavail able Allergies No known active allergies Medications Medication Sig Dispensed Refills Start Date End Date Status predniSONE (DELTASONE) 20 MG tablet Take 3 tablets for 3 days, then take 2 tablets for 3 days, then take 1 tablet for 3 days. Please take this medication in the morning 18 Tab 0 03/17/2015 Active Active Problems Problem Noted Date Pure hypercholesterolemia 05/22/2005 Anxiety disorder in conditions classifie d elsewhere 05/22/2005 Overview: IMO update Overweight 05/22/2005 Immunizations Name Administration Dates Next Due TD (STATE SUPPLIED FOR ADULTS AND CHILDREN) 04/2000 Family History Medical History Relation Name Comments CABG Father Cholesterol Level Father Relation Name Status Comments Daughter Alive 1 daughter age 3, healthy Father Alive CABG , MULTI AN GIOPLASTY, FEM BYPASS Maternal Grandfather old age Maternal Grandmother old age Mother Alive Paternal Grandfather old age Paternal Grandmother old age Sister Alive 1 sister, age 2 8, healthy Social History Tobacco Use Types Packs/Day Years Used Date Smoking Tobacco: Former Comments:quit at age 24 Alcohol Use Standard Drinks/Week Comments Yes 0 (1 standard drink = 0.6 oz pur e alcohol) 6/wk Sex Assigned at Date Recorded Not on file Last Filed Vital Signs Vital Sign Reading Time Taken Comments Blood Pressure 110/76 03/17/2015 11:24 AM EST Pulse 76 03/17/2015 11:24 AM EST Temperature 36.6 ??C (97.9 ??F) 10/05/2009 1:54 PM ED T Respiratory Rate 16 03/17/2015 11:24 AM EST Oxygen Saturation 96% 10/05/2009 1:54 PM EDT Inhaled Oxygen Concentration - - Weight 107 kg (236 lb) 03/17/2015 11:24 AM EST Height 180.3 cm (5' 11 ) 05/31/2009 8:04 AM EST Body Mass Index 32.92 05/31/2009 8:04 AM EST Plan of Treatment Health Maintenance Due Date Last Done Comments Covid-19 Vaccine (#1) 06/17/1973 TOBACCO CHECK/ADVISE 1990 DTAP/TDAP/TD (1 - Tdap) 09/25/2000 09/24/2000 BASELINE HEALTH EXAM 40-64 2012 01/12/2003 CHOLESTEROL SCREENING 03/06/2015 03/06/2010 , 08/09/2008, 09/16/2006, Additional history exists COLON CANCER SCREENING 2022 SHINGLES VACCINE (1 of 2) 2022 BMI CHECK/ADVISE 04/26/2024 INFLUENZA (Season Ended) 2024 PNEUMOCOCCAL VACCINE FOR HIG H RISK PATIENTS (#1) 2037 Insurance Payer Benefit Plan / Group Subscriber ID Effective Dates Phone Address Type ASHN [id number]/ASHN/$[id number]/F /HMO [id number] 2007-Cheri nt [address] [place] [address] HMO Fee-for-S ervice [employer] PPO $15 [id number] 2014-David moncada [address] [facility] [place] [address] PPO Fee-for-S ervice Care Teams Head Chopper Relationship Specialty Start Date End Date Danny Busch MD PCP - General 06/06/01
--- OUTSIDE RECORDS SUMMARY | 2024-08-17 17:57 | XMS_ITS | Clinical Summary ---
Author Organization [facility] Address [address] [place] [address] Care Team Providers Care Instrument Maker Apprentice Name Role Phone Unavailable Primary Care Provider [...] Health Maintenance Due Date Last Done Comments Anxiety Screening 1970 Diabetes Screening 1970 Hepatitis C Screening 1970 Lipid Screening 1970 Tobacco Screening 1972 HIV Screening 12/16/1987 Hypertension Screening (#1) 1990 Imm-Hepatitis B (1 of 3 - 19 + 3-dose series) 12/16/1991 Imm-DTaP/Tdap/Td (1 - Tdap) 09/25/2000 09/24/2000 CT Colonography 2017 Colonoscopy 2017 Colorectal Cancer Screening 2017 FIT/gFOBT 2017 Fecal DNA 2017 Flexible Sigmoidoscopy 2017 Imm-Zoster, Recombinant (1 of 2) 2022 Smd-YOWPE-16 ( season) 2023 021, 07/22/2020 Imm-Influenza (#1) 2023 Alcohol and Drug Screen 04/26/2024 Depression Annual Screen 04/26/2024 Insurance [facility] Member Subscriber Plan / Payer (Ef fective 2020-Present) Name:Cullen Montano Relation to Subscriber:Self Name:Cullen Montano Payer ID:[id number] Type:[employer] Address: [facility] [id number] [place] [address]
== END 2024-08-17 15:50 | disposition home or self-care (01) ==
LOC: HO.HMCFM 15:15
PROVIDERS: PCP Physician Assistant; Visit Provider Physician Assistant
DX: Z01.818 Encounter for other preprocedural examination (principal); E78.5 Hyperlipidemia, unspecified; G47.33 Obstructive sleep apnea (adult) (pediatric)

== ENCOUNTER → 2024-08-17 15:14 | Outpatient (BNVA) | payer BC, SELFPAY | PROVIDERS: PCP Physician Assistant; Visit Provider Physician Assistant | DX: Z01.818 Encounter for other preprocedural examination (principal); E78.5 Hyperlipidemia, unspecified; G47.33 Obstructive sleep apnea (adult) (pediatric); Z99.89 Dependence on other enabling machines and devices | CPT/HCPCS: 93005; 96127 ==

== ENCOUNTER 2024-08-21 14:53 | Outpatient (AMB) | payer BC, SELFPAY ==
--- NOTE | 2024-08-21 15:00 | MHC.OFFVIS ---
Vital Signs 08/21/24 15:01 Height 5 ft 10 in Weight 236 lb BMI 33.9 BP 138/94 H Blood Pressure Location Rt brachial Position Sitting Intake Visit Reasons: follow up VÍCTOR Intake Note: Patient presents follow up VÍCTOR. Labs in chart. No compliance Allergies No Known Allergies Allergy (Verified 08/21/24 15:08) HPI Comments Details: 53 year old male presents for a f/u visit for VÍCTOR. Home Sleep Study: 05/08/2024 Mild Sleep apnea, AHI was 12/Hr. and O2 desaturation to 77%. He c/o having difficulties with the pressures ramping up at night and blowing on his face, they were so forceful he says the mask would be blown off his face. He now he has a full face mask, instead of the nasal canula, since changing to full face mask he feels better when breathing and no longer wakes up as if he is choking. He felt his pressures was still high in the middle of June and he adjusted his pressures to [id number] and this has not affected his AHI too much. We discussed the need to be titrated professional and not adjusting the pressures more than 2cmHO at at time. He goes to bed at 9pm and wakes up at 5am, with no bathroom breaks, still being followed by Dr. Graham re: testosterone therapy and low libido and mood irritability. He says he has a low stress lifestyle, however concerned about sexual health and quality of life. He denies headaches, RLS, cramps, and grinding of teeth. He says his memory is good. Diet is clean, he says he fasts between 9pm to 9am. He travels for fun 1x a month, hikes weekly, and completes 7684-4523 steps daily at work throughout the day, does not drink enough water. He denies smoking, edibles, and drinks on the weekends, 1-3 drinks socially. We reviewed labs today, his Ferritin is high, we discussed various possibilites, Vit D is low, will start a D supplement today. His Triglycerides are still elevated but improved since prior years. He washes his mask, changes hoses and filters, fills the reservoir with distilled water as required. [facility] Medical History Low testosterone in male Arthritis Tachycardia Obesity, Class I, BMI 30-34.9 Hyperlipidemia Hx of pneumothorax Hx of Lyme disease Hx of fracture of rib Dyslipidemia Surgical History No pertinent past surgical history Family History Mother Breast cancer Father Colon cancer Diabetes mellitus Heart disease Hypercholesteremia HTN (hypertension) Cardiovascular disease Maternal Aunt No problems noted. Maternal Grandfather Lung cancer Maternal Grandmother Lung cancer Paternal Grandfather Lung cancer Social History Housing: House Patient Tobacco Use Status: Former Tobacco user Cigarettes Per Day: 2 Years Smoked: 5 e-Cigarette/Vaping Use: Never Used Second Hand Smoke Exposure: No service: No Current occupational status: employed Current occupation: [employer] Current occupational exposures/hazards: Yes Cognitive needs: Yes Hearing needs: Yes Vision needs: Yes (glasses) Physical Exam Vital Signs: Last Vital Signs BP 138/94 H 08/21/24 15:01 BMI result Body Mass Index 33.9 Const General: cooperative, comfortable and no acute distress Nutritional Appearance: average body habitus and obese (BMI is 32) Orientation/consciousness: patient oriented x3 HEENT Face and sinus: Yes normal facial exam and Yes face symmetric Teeth and gingiva: other (Mallmpti score of 3) Eyes Pupils: Equal, round and reactive pupils present Neck Neck: Yes full ROM and Yes supple Resp Effort & Inspection: normal respiratory effort and able to speak in complete sentences Neuro General: patient oriented x3 and moves all extremities Cranial nerves: Yes CN's II-XII intact bilaterally, Yes Facial sensation intact/muscles of mastication intact, Yes Equal, round and reactive pupils present, Yes Normal accommodation reflex present, Yes Bilaterally intact EOM present, Yes Nystagmus not present, Yes Normal facial strength present, Yes Midline tongue present, Yes Ability to bilaterally rotate head present and Yes Ability to bilaterally elevate shoulders present Gait exam (Neuro): Normal gait present Motor exam (neuro): 5/5 motor strength present throughout, Pronator motor function not present, no tremor noted and Normal motor muscle tone present throughout Deep tendon reflexes (DTR's): Right triceps reflex intensity grade: 2+, Left triceps reflex intensity grade: 2+, Rt Biceps (C5, C6): 2+, Left biceps reflex intensity grade: 2+, Right brachioradialis reflex intensity grade: 2+, Left brachioradialis reflex intensity grade: 2+, Right patellar reflex intensity grade: 2+ and Left patellar reflex intensity grade: 2+ Psych Appearance: grossly normal Mental Status: mental status grossly normal Speech and movement: Normal speech and movement present Affect: normal affect Attitude: cooperative Thought process: Normal thought process present Thought content: Normal thought content present Insight: Good insight present (Psych) Judgement: Good judgement present (Psych) Results Reviewed Results Reviewed: VÍCTOR Compliance is viewed on his myairapp Apr 2024- July 2024 Total average use 5 hours 11min and total use >4 hours is 69/88 with 78% Press are 5- 96ycS93 with leaks min to max 17/hr and AHI is 0.68/hr. Assessment & Plan Assessment & Plan (1) Mild obstructive sleep apnea: Code(s): G47.33 - Obstructive sleep apnea (adult) (pediatric) Category: Medical (2) Low testosterone in male: Code(s): R79.89 - Other specified abnormal findings of blood chemistry Category: Medical (3) Fatigue due to sleep pattern disturbance: Code(s): R53.83 - Other fatigue; G47.9 - Sleep disorder, unspecified Category: Medical Plan VÍCTOR Mild Continue CPAP therapy, [id number], patient self adjusted pressures to 95hlY23, will f/u if AHI continues to be elevated, instructed patient not to self titrate pressures more than 2cmH20 at any given time. Fatigue due to sleep pattern disturbances reviewed labs: Vit D is low, start Vitamin D, HDL is low increase Lakeside 3 fatty acids. Triglycerides are elevated will f/u with PCP. Patient Eduction: Role of GH regulation in a diurinal pattern, and our natural Circadian Rhythm influencing hormones, along with need for good cholesterol (HDL) as a building block, hence the need for good quality of Sleep, and Sleep Hygiene. Dark Room Temp below 68, no devices in bed, limit fluids 2 hours prior to bed, may read in bed. Will F/u in 6 months to monitor compliance and f/u with portal message re: AHI changes due to the pressure adjustment to 21hxQ98. Patient Instructions: Patient Education: Use CPAP therapy as directed accordingly for a minimum of 4-6 hours per night. Each sleep cycle is 90 min. N1, N2, N3 and REM, thus cycling through these 4 phases reaching REM allows the Hypothalamus signalling to the Pituitary gland to release GNRH, GHRH, TSH, CRH etc. for growth tissue repair, mood and immunity. If you experience any difficulties with your machine reach out to your cpap provider, and or [facility] for replacements, adjustments of masks, or pressure settings. Download the SnappCloud nataliia to monitor your own sleep cycle nightly. Write down your questions and lets discuss them. Wash the mask daily,replace hoses, change filters, fill your reservoir with distilled water as needed. Continue Vitamin D daily and increase Lakeside 3 fatty acids. Increase water intake and decrease alcohol intake. Coding Level of Care Code Est Pt Level 4 (88147) Diagnoses Mild obstructive sleep apnea G47.33 Low testosterone in male R79.89 Fatigue due to sleep pattern disturbance R53.83; G47.9 Time Spent (min) 30
[2024-08-21 15:01] VITALS: BP 138/94; BMI 33.9
--- OUTSIDE RECORDS SUMMARY | 2024-08-21 17:42 | XMS_ITS | Clinical Summary ---
Author Organization [facility] Address [address] [place] [address] Care Team Providers Care Residential Designer Name Role Phone Unavailable Primary Care Provider [...] 2017 Imm-Zoster, Recombinant (1 of 2) 2022 Naw-NUTKY-17 ( season) 2023 021, 07/22/2020 Imm-Influenza (#1) 2023 Alcohol and Drug Screen 04/26/2024 Depression Annual Screen 04/26/2024 Insurance [facility] Member Subscriber Plan / Payer (Ef fective 2020-Present) Name:Cullen Montano Relation to Subscriber:Self Name:Cullen Montano Payer ID:[id number] Type:[employer] Address: [facility] [id number] [place] [address]
--- OUTSIDE RECORDS SUMMARY | 2024-08-21 17:42 | XMS_ITS | Encounter Summary ---
Author Organization [facility] Address [facility] [place] [address] Care Team Providers Care Mortgage Processor Name Role Phone Danny Busch MD Primary Care Provider Unavail able Encounter Details Date Type Department Care Team Description 10/19/2014 Walk In Clinic Visit Medical Records [address] [place] [address] Social History Tobacco Use Types Packs/Day Years Used Date Smoking Tobacco: Former Comments:quit at age 24 Alcohol Use Standard Drinks/Week Comments Yes 0 (1 standard drink = 0.6 oz pur e alcohol) 6/wk Sex Assigned at Date Recorded Not on file documented as of this encounter Plan of Treatment Not on file documented as of this encounter Visit Diagnoses Not on filedocumented in this encounter Care Teams Mortgage Processor Relationship Specialty Start Date End Date Danny Busch MD PCP - General 06/06/01 documented as of this encounter
--- OUTSIDE RECORDS SUMMARY | 2024-08-21 17:42 | XMS_ITS | Data Portability ---
Author Organization [place] - [facility], [facility] Address [address] [place] [address] Care Team Providers Care Spread Cutter Name Role Phone JENI HAMMOND Primary Care Provider Assessment No assessment recorded. Plan of Treatment Reminders Order Date Submit Date Provider Last Modified By Organization Details Last Modified Time Details Appointments None recorded. Lab None recorded. Referral None recorded. Procedures None recorded. Surgeries None recorded. Imaging XR, cervical spine, 1 view - room 2 lateral cervical [facility]23 [facility], [address], [address], [place], [address], 4 08:10:49 XR, shoulder, 2 or more view - room 2 left shoulder/ lateral cervical 2023 024 [facility], [address], [address], [place], [address], 4 08:10:49 MRI, shoulder, w/o contrast - rct 2023 024 [facility] ([facility] [address], [place], [address], 4 08:10:49 Medication Orders None recorded. Patient [...] a4ajBk vP9nXo QUaueC m3YtLR FvZlgJ JJ8mAn HZtai3 0y1168 AC0Kra nWFV6v eUC8mr 84%3D INTERFACE [facility] [address], [place], [address], 12/13/2023 12:58:46 12/13/19 24 12/13/2023 XR, cervi alejandro spine , 1 view http:/ [email or web address] ?Encry pted=s hAaTro YD8dLq bEUv6g %2BXZw aYqtaq 0bqfl% 2Fg9IQ a4ajBk vP9nXo QUaueC m3YtLR FvZlg JJ8Elkins HZtai3 8y1003 AC0Kra nWFV6v eUC8mr 84%3D INTERFACE [facility] [address], [place], [address], 12/13/2023 12:58:48 12/13/19 24 12/13/2023 XR, shoul javan, 2 or more view [email or web address]:/ [email or web address] ?Encry pted=s hAaTro YD8dLq bEUv6g %2BXZw aYqtaq 0bqfl% 2Fg9IQ a4ajBk vP9nXo QUaueC m3YtLR FvZlgJ JJ8mAn HZtai3 9y0084 AC0Kra nWFV6L eUC8mr 84%3D INTERFACE [facility] [address], [place], [address], 12/13/2023 13:02:23 12/13/19 24 12/13/2023 XR, shoul javan, 2 or more view [email or web address] ?Encry pted=s hAaTro YD8dLq bEUv6g %2BXZw aYqtaq 0bqfl% 2Fg9IQ a4ajBk vP9nXo QUaueC m3YtLR FvZlgJ JJ8mAn HZtai3 3i4086 AC0Kra nWFV6L eUC8mr 84%3D INTERFACE [facility] [address], [place], [address], 12/13/2023 13:02:24 12/20/19 24 12/18/2023 MRI, shoul javan, w/o contr ast [facility] Access ion Number : [id number] Patien t Name: Cullen Montano Record Number : [id number] Date of : 1970 Date of Exam: 2023 Referr ing Physic gopal: Rob crook, [facility] [address] [facility], [address] [place] [address] Exam: MR Should er (C-) CPT 70497 - Left Room Descri ption: [facility] Clinic al Histor y: [...] . Superi mposed tearin g of the supervisor detasseling crew ior labrum . Chroni c tear of [...] degene rative appear ing tear in the supervisor detasseling crew ior labrum . Bilobe d cystic struct ure adjace nt to the felicia inferi or labrum glenoi d is seen withou t defini te extens ion to the labrum to sugges t a para labral cyst. 3. Mild glenoh umeral and mild to modera te acromi oclavi cular degene rative change . Electr onical ly Signed By: Karen Clancy ra, MD [facility] ([facility]) [address], [place], [address], 12/24/2023 09:27:25 Result Notes None recorded. Problems Name Problem SNOMED Code Status Onset Date Resolution Date Notes Provider Name and Address Organization Details Recorded Time Pain of left shoulder joint 4455348254404 9109 Active 2023 Josué Jonas PA-C [address], [place], [address], [facility] 4 12:46:01 Neck pain 56192923 Active 2023 Josué Jonas PA-C [address], [place], [address], [facility] 4 12:46:57 Impingement syndrome of left shoulder region 3216220694417 04 Active 2023 Josué Jonas PA-C [address], [place], [address], [facility] 4 13:04:56 Derangement of left shoulder joint 4968212634152 9106 Active 2023 Josué Jonas PA-C [address], [place], [address], [facility] 4 13:06:03 Osteoarthri tis of shoulder region 52174688 Active 2023 Josué Jonas PA-C [address], [place], [address], [facility] 4 15:38:53 Problem Notes None recorded. Procedures Surgical History Date Name Laterality Status Provider Name and Address Organization Details Recorded Time 4 Sports Shoulder 4&1 w/US completed Josué Jonas PA-C [address], [place], [address], [facility] 01/03/2024 15:38:38 Imaging Results Imaging Date Name Status LastModified by Organiz ation Details LastModified Time 12/13/2023 XR, cervical spine, 1 view completed INTER[facility] [address], [place], [address], 12/13/2023 12:58:46 12/13/2023 XR, cervical spine, 1 view completed INTERFACE [facility] [address], [place], [address], 12/13/2023 12:58:48 12/13/2023 XR, shoulder, 2 or more view completed INTERFACE [facility] [address], [place], [address], 12/13/2023 13:02:23 12/13/2023 XR, shoulder, 2 or more view completed INTERFACE [facility] [address], [place], [address], 12/13/2023 13:02:24 12/18/2023 MRI, shoulder, w/o contrast completed [facility] ([facility]) [address], [place], [address], 12/24/2023 09:27:25 Procedure Notes None recorded. Medical [...] Updated DateTime 12/13/2023 177.8 cm 31.1 kg/m2 12338.54 g Josué Jonas PA-C [address], [address], [facility] 12/13/2023 12:45:07 Date Recorded Body height Body mass index (BMI) Body weight Provider Name and Address Organization Details Last Updated DateTime 01/03/2024 177.8 cm 31.1 kg/m2 26087.54 g Josué Jonas PA-C [address] [facility] [address], [address], [facility] 01/03/2024 14:59:28 Social History None recorded. Functional Status None recorded. Mental Status None recorded. Family History Nothing Reported. Medical History Condition Response Arthritis Y Cholesterol Y Past Encounters Encounter ID Performer Location Encounter Start Date Encounter Closed Date Diagnosis/Indication Diagnosis SNOMED-CT Code Diagnosis ICD10 Code Diagnosis Note [id number] DENIA Butterfield [address]rd floor [address] [place] [address] 12/13/2023 12:27:51 12/30/2023 08:10:49 Pain of left shoulder joint 0908498307 5881326 M25.512 Neck pain 39376387 M54.2 Impingemen t syndrome of left shoulder region 4471933435 06152 M75.42 Derangemen t of left shoulder joint 3447825606 5314811 M24.019 [id number] DENIA Butterfield Clinical [address] [place] [address] 01/03/2024 14:54:33 01/13/2024 12:54:11 Osteoarthritis of shoulder region 55505047 M19.019 Health Concerns Section Related Observation LastModified by Organization Detai ls LastModified Time None Recorded Concern Status LastModified by Organization Details LastModified Time None Recorded Advance Directives Directive None Recorded Payers Encounter Date Sequence Insurance Name Policy Number Policy Gibson Covered Member ID Gibson Member ID Guarantor Name 12/13/2023 1 [place] [id number] Cullen Silveriolow [id number] Cullen Silveriolow 01/03/2024 1 [place] [id number] Cullen Montano [id number] Cullen Montano Notes Date Note Type [...] ordered, obtained and independently reviewed today at [facility]. Four views of the left shoulder [...] discuss results and definitive care going forward. [facility] speech recognition route rider software was used to create portions of this document. An attempt at proofreading has been made to minimize errors. Please call for corrections. Josué Jonas PA-C [address] [facility] [address], [place], [address], [facility] 12/13/2023 13:11:35 01/03/2024 text/html [...] ordered, obtained and independently reviewed today at [facility]. Four views of the left shoulder [...] distal clavicle excision sometime in the future. [employer] speech recognition route rider software was used to create portions of this document. An attempt at proofreading has been made to minimize errors. Please call for corrections. Josué Jonas PA-C [address] [facility] [address], [place], [address], [facility] 01/03/2024 15:39:17
--- OUTSIDE RECORDS SUMMARY | 2024-08-21 17:42 | XMS_ITS | Encounter Summary ---
Author Organization [facility] Address [facility] [place] [address] Care Team Providers Care Quality Intern Name Role Phone Danny Busch MD Primary Care Provider Unavail able Encounter Details Date Type Department Care Team Description 03/19/2015 Release of Information Medical Records [address] [place] [address] Abstract, Provider Social History Tobacco Use Types Packs/Day Years [...] on filedocumented in this encounter Care Teams Quality Intern Relationship Specialty Start Date End Date Danny Busch MD PCP - General 06/06/01 documented as of this encounter
== END 2024-08-21 16:07 | disposition home or self-care (01) ==
LOC: HO.HSMS 14:53
PROVIDERS: PCP Physician Assistant; Visit Provider Physician Assistant Medical
DX: G47.33 Obstructive sleep apnea (adult) (pediatric) (principal); R79.89 Other specified abnormal findings of blood chemistry; R53.83 Other fatigue; G47.9 Sleep disorder, unspecified
CPT/HCPCS: 99214

== ENCOUNTER 2024-10-09 05:59 | Outpatient (REF) | payer BC, SELFPAY ==
--- OUTSIDE RECORDS SUMMARY | 2024-10-09 06:02 | XMS_ITS | Data Portability ---
Author Organization [place] [facility], [facility] Address [address] [place] [address] Care Team Providers Care Greens Or Grounds Superintendent Name Role Phone JENI HAMMOND Primary Care Provider Assessment No assessment recorded. Plan of Treatment Reminders Order Date Submit Date Provider Last Modified By Organization Details Last Modified Time Details Appointments None recorded. Lab None recorded. Referral None recorded. Procedures None recorded. Surgeries None recorded. Imaging XR, cervical spine, 1 view - room 2 lateral cervical 2023 024 [facility], [address], [address], [place], [address], 4 08:10:49 XR, shoulder, 2 or more view - room 2 left shoulder/ lateral cervical 2023 024 [facility], [address], [address], [place], [address], 4 08:10:49 MRI, shoulder, w/o contrast - rct 2023 024 [facility] ([facility] [address], [place], [address], 4 08:10:49 Medication Orders None recorded. Patient [...] a4ajBk vP9nXo QUaueC m3YtLR FvZlgJ JJ8mAn HZtai3 9e8238 AC0Kra nWFV6v eUC8mr 84%3D INTERFACE [facility] [address], [place], [address], 12/13/2023 12:58:46 12/13/19 24 12/13/2023 XR, cervi alejandro spine , 1 view http:/ [email or web address] ?Encry pted=s hAaTro YD8dLq bEUv6g %2BXZw aYqtaq 0bqfl% 2Fg9IQ a4ajBk vP9nXo QUaueC m3YtLR FvZlg JJ8[place] HZtai3 7g3975 AC0Kra nWFV6v eUC8mr 84%3D INTERFACE [facility] [address], [place], [address], 12/13/2023 12:58:48 12/13/19 24 12/13/2023 XR, shoul javan, 2 or more view http:/ [email or web address] ?Encry pted=s hAaTro YD8dLq bEUv6g %2BXZw aYqtaq 0bqfl% 2Fg9IQ a4ajBk vP9nXo QUaueC m3YtLR FvZlgJ JJ8mAn HZtai3 3w3579 AC0Kra nWFV6L eUC8mr 84%3D INTERFACE [facility] [address], [place], [address], 12/13/2023 13:02:23 12/13/19 24 12/13/2023 XR, shoul javan, 2 or more view http:/ [email or web address] ?Encry pted=s hAaTro YD8dLq bEUv6g %2BXZw aYqtaq 0bqfl% 2Fg9IQ a4ajBk vP9nXo QUaueC m3YtLR FvZlgJ JJ8mAn HZtai3 1y2156 AC0Kra nWFV6L eUC8mr 84%3D INTERFACE [facility] [address], [place], [address], 12/13/2023 13:02:24 12/20/19 24 12/18/2023 MRI, shoul javan, w/o contr ast [facility] Access ion Number : [id number] Patien t Name: Cullen Montano Record Number : [id number] Date of : 1970 Date of Exam: 2023 Referr ing Physic gopal: Rob crook, [facility] [address], [address] [place] [address] Exam: MR Should er (C-) CPT 36752 - Left Room Descri ption: [facility] 3T Clinic al Histor y: [...] . Superi mposed tearin g of the cleaner greaser ior labrum . Chroni c tear of [...] degene rative appear ing tear in the cleaner greaser ior labrum . Bilobe d cystic struct ure adjace nt to the felicia inferi or labrum glenoi d is seen withou t defini te extens ion to the labrum to sugges t a para labral cyst. 3. Mild glenoh umeral and mild to modera te acromi oclavi cular degene rative change . Electr onical ly Signed By: Karen Clancy ra, MD [email or web address] [facility] ([facility]) [address], [place], [address], 12/24/2023 09:27:25 Result Notes Documentation Provider Name and Address Organization Details Recorded Time Xr, Shoulder, 2 Or More View : [email or web address] crypted=vuUiSlbWE6aQyeAEv5p %4OIYpbMmjgf0wzae%0Fu4TRs0c nRniD0vWnRQtbdIm2IyXUKoPxeM KL3hIqUSjsp79z9936FL2GtfnLE Q5FuLV7ys58%3D Not Available [facility] 12/13/2023 13:02:23 Xr, Shoulder, 2 Or More View : [email or web address] crypted=fmGsSpnBD1hOkgZTc3z %3JOBldHobnp6hwvf%2Sb3DTu4i qYugY1wPiJIpawAd9GkBHAkQhhT HD2vRpEIvzi43o1136WG9TpfqKG T7ZpKQ1ru82%3D Not Available [facility] 12/13/2023 13:02:25 Xr, Cervical Spine, 1 View : [email or web address] crypted=eiRwFoeRX4pBavSHw0m %6CDRleUukhk2npsd%2Zd0PWw0r qVrxY2kXiFZtncPw3HyIOBoYdfH CE6sRoHYvsk38h6206GK8BfkmIJ A8czPJ3un38%3D Not Available [facility] 12/13/2023 12:58:47 Xr, Cervical Spine, 1 View : [email or web address] crypted=kpXjVbmTJ8yPlpVVn7b %8OHZlkYjzzo0lmfo%6Mi1PWy3u wGueI0iXpOTembQi8FmQWYqNygI RM1dDoECfwn95b8689BV3DrcyDR H8sbII2tk68%3D Not Available [facility] 12/13/2023 12:58:49 Mri, Shoulder, W/o Contrast : [facility] Accession Number: [id number] Patient Name: Cullen Montano Date of : 1970 Date of Exam: 12-18-2023 Referring Physician: Josué Jonas [facility] ([facility]) [address], [address] [place] [address] Exam: MR Shoulder (C-) CPT 86320 - Left Room Description: [facility] 3T Clinical History: Other specific joint derangements of the left shoulder, question rotator cuff tear. The patient reports constant lateral left shoulder pain which varies in severity at night for one week. Technique: MRI of the left shoulder was performed without intravenous contrast. Comparison: Left shoulder MRI dated 10/20/2017. Findings: Rotator cuff: There is supraspinatus tendinopathy and mild insertional tendinopathy of infraspinatus. There is subscapularis tendinopathy. The teres minor tendon is intact. There is normal muscle bulk. Glenoid labrum and biceps tendon: There is diffuse intermediate signal in the superior labrum, compatible with degeneration. Superimposed tearing of the posterior labrum. Chronic tear of the long head of the biceps tendon. Bilobed cystic structure adjacent to the anterior inferior glenoid is seen without definite extension to the labrum to confirm a para labral cyst. AC joint: There is mild to moderate acromioclavicular degenerative change of bony proliferation and subchondral marrow edema. Narrowing of the medial outlet is again seen. Articular cartilage: There is irregular chondral thinning inferiorly in the glenoid. No discrete chondral defect over the humeral head. No evidence of glenohumeral joint effusion. Bone: The bone and bone marrow are normal. Impression: 1. Tendinopathy of supraspinatus, subscapularis and the infraspinatus insertion. 2. Chronic tear of the long head of the biceps tendon and degenerative appearing tear in the posterior labrum. Bilobed cystic structure adjacent to the anteroinferior labrum glenoid is seen without definite extension to the labrum to suggest a para labral cyst. 3. Mild glenohumeral and mild to moderate acromioclavicular degenerative change. Electronically Signed By: Karen Odom [facility] [place] [facility] 12/24/2023 09:27:25 Problems Name Problem SNOMED Code Status Onset Date Resolution Date Notes Provider Name and Address Organization Details Recorded Time Pain of left shoulder joint 3058957589561 9109 Active 2023 Josué Jonas PA-C [address], [place], [address], [facility] 4 12:46:01 Neck pain 47875295 Active 2023 Josué Jonas PA-C [address], [place], [address], [facility] 4 12:46:57 Impingement syndrome of left shoulder region 1030331928095 04 Active 2023 Josué Jonas PA-C [address], [facility] [place] [place], [address], [facility] 4 13:04:56 Derangement of left shoulder joint 6630340632557 9106 Active 2023 Josué Jonas PA-C [address], [place], [address], [facility] 4 13:06:03 Osteoarthri tis of shoulder region 49466244 Active 2023 Josué Jonas PA-C [address], [place], [address], [facility] 4 15:38:53 Problem Notes None recorded. Procedures Surgical History Date Name Laterality Status Provider Name and Address Organization Details Recorded Time Sports Shoulder 4&1 w/US completed Josué Jonas PA-C [address], [place], [address], [facility] 01/03/2024 15:38:38 Imaging Results None recorded. Procedure Notes None recorded. Medical Equipment None [...] Updated DateTime 12/13/2023 177.8 cm 31.1 kg/m2 60765.54 g Josué Jonas PA-C [address], [place], [address], [facility] 12/13/2023 12:45:07 Date Recorded Body height Body mass index (BMI) Body weight Provider Name and Address Organization Details Last Updated DateTime 01/03/2024 177.8 cm 31.1 kg/m2 71343.54 g Josué Jonas PA-C [address], [place], [address], [place] [facility] 01/03/2024 14:59:28 Social History None recorded. Functional Status None recorded. Mental Status None recorded. Family History Nothing Reported. Medical History Condition Response Cholesterol Y Arthritis Y Past Encounters Encounter ID Performer Location Encounter Start Date Encounter Closed Date Diagnosis/Indication Diagnosis SNOMED-CT Code Diagnosis ICD10 Code Diagnosis Note [id number] DENIA Butterfield [address]rd floor [address] [place] [address] 12/13/2023 12:27:51 12/30/2023 08:10:49 Pain of left shoulder joint 9362041952 5425373 M25.512 Neck pain 66671567 M54.2 Impingemen t syndrome of left shoulder region 2453634078 65038 M75.42 Derangemen t of left shoulder joint 8886646915 7469688 M24.225 [id number] DENIA Butterfield [facility] [address] [place] [address] 01/03/2024 14:54:33 01/13/2024 12:54:11 Osteoarthritis of shoulder region 90612724 M19.019 Health Concerns Section Related Observation LastModified by Organization Detai ls LastModified Time None Recorded Concern Status LastModified by Organization Details LastModified Time None Recorded Advance Directives Directive None Recorded Payers Insurance Date Sequence Insurance Name Policy Number Policy Gibson Covered Member ID Gibson Member ID Guarantor Name 01/13/2024 1 [employer] (PPO) [id number] Cullen Montano [id number] Cullen Silveriolow Notes Date Note Type Note Provider Name [...] ordered, obtained and independently reviewed today at [facility]. Four views of the left [...] discuss results and definitive care going forward. [employer] speech recognition clay pigeon loader software was used to create portions of this document. An attempt at proofreading has been made to minimize errors. Please call for corrections. Josué Jonas PA-C [address], [place], [address], [place] [facility] 12/13/2023 13:11:35 01/03/2024 text/html I am seeing [...] ordered, obtained and independently reviewed today at [facility]. Four views of the left [...] distal clavicle excision sometime in the future. [employer] speech recognition clay pigeon loader software was used to create portions of this document. An attempt at proofreading has been made to minimize errors. Please call for corrections. Josué Jonas PA-C [address] [place] [address] [address], [place], [address], [facility] - [facility] 01/03/2024 15:39:17
[2024-10-09 07:13] LABS: Hematocrit 45.4 % (42.0-52.0); Hemoglobin 14.9 g/dl (14.0-18.0)
[2024-10-09 07:52] LABS: Prostate Specific Antigen 0.72 ng/mL (<0.05-4.0)
[2024-10-14 18:27] LABS: Testosterone, Free 76.6 pg/mL (35.0-155.0); Testosterone, Total 326 ng/dL (250-1100)
== END 2024-10-09 06:00 | disposition home or self-care (01) ==
LOC: HO.LAB 05:59
PROVIDERS: PCP Physician Assistant; Visit Provider Internal Medicine Endocrinology, Diabetes & Metabolism
DX: Z12.5 Encounter for screening for malignant neoplasm of prostate (principal); R79.89 Other specified abnormal findings of blood chemistry
CPT/HCPCS: 36415; 84153; 84402; 84403; 85014; 85018

== ENCOUNTER 2024-11-27 15:44 | Outpatient (AMB) | payer BC, SELFPAY ==
[2024-11-27 15:47] VITALS: BP 118/80; PULSE 96; O2SAT 97; BMI 32.9
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
--- OUTSIDE RECORDS SUMMARY | 2024-11-27 15:47 | XMS_ITS | Clinical Summary ---
Author Organization [facility] Address [address] [place] [address] Phone Care Team Providers Care Business Continuity Director Name Role Phone Unknown, Unknown Primary Care Provider Daniel madrid Allergies No known active allergies Medications atorvastatin (LIPITOR) 40 MG tablet take 1 tablet by mouth everyday at bedtime 09/30/2023 Active Active Problems No known active problems Social History Tobacco Use Types Packs/Day Years Used Date Smoking Tobacco: Never Assessed Education Answer Date Recorded Are you interested in more education? Not on ene e 09/27/2023 Are you concerned about learning? Not on file 09/27/2023 No 09/27/2023 No 09/27/2023 Digital Access Answer Date Recorded No 09/27/2023 No 09/27/2023 Reliable internet access at home? Not on file 09/27/2023 Device with a working camera? Not on file Sex and Gender Information Value Date Recorded Sex Assigned at Not on file Legal Sex Male 9:44 AM EDT Gender Identity Not on file Sexual Orientation Not on file Last Filed Vital Signs Vital Sign Reading Time Taken Comments Blood Pressure 137/82 10/13/2023 1:15 PM EDT Pulse 93 10/13/2023 1:15 PM EDT Temperature - - Respiratory Rate - - Oxygen Saturation 98% 10/13/2023 1:15 PM EDT Inhaled Oxygen Concentration - - Weight 98 kg (216 lb) 10/13/2023 1:15 PM EDT Height 177.8 cm (5' 10 ) 10/13/2023 1:15 PM EDT Body Mass Index 30.99 10/13/2023 1:15 PM EDT Plan of Treatment Health Maintenance Due Date Last Done Comments LIPID PANEL 1972 DEPRESSION SCREENING 1984 SMOKING Hx and SMOKELESS TOBACCO SCREENING 1985 HEPATITIS C SCREENING 1990 HIV ONE-TIME SCREENING (18-6 5 YEARS) 1990 SCREENING FOR DIABETES 12/16/2007 Adult Td,Tdap Booster 09/24/2010 09/24/2000 COLOGUARD 2017 COLONOSCOPY 2017 COLORECTAL CANCER SCREENING 2017 FIT TEST 2017 FOBT 2017 SIGMOIDOSCOPY 2017 VIRTUAL COLONOSCOPY 2017 PNEUMOCOCCAL VACCINES (50+ years) (1 of 1 - PCV) 2022 ZOSTER VACCINES (1 of 2) 2022 COVID-19 VACCINE (3 - 2023-2 5 season) 2023 08/19/2020, 07/22/2020 HEPATITIS A VACCINES Aged Out No long er eligible based on patient's age to complete this topic HIB VACCINES Aged Out No longer eligi ble based on patient's age to complete this topic MENINGOCOCCAL VACCINES (ACWY) Aged Out No longer eligible based on patient's age to complete this topic MENINGOCOCCAL VACCINES (B) Aged Out N o longer eligible based on patient's age to complete this topic Medical Devices Not on file [facility] [place] [address] [place] [address] PPO [facility]PO [facility] Care Teams Business Continuity Director Relationship Specialty Start Date End Date Unknown, Unknown, PCP - General 09/27/23 Additional Source Comments The information contained in this document represents components of the legal health record. It is not the complete legal health record.[facility]
--- OUTSIDE RECORDS SUMMARY | 2024-11-27 15:47 | XMS_ITS | Clinical Summary ---
Author Organization [facility] Address [address] [place] [address] Care Team Providers Care Quality Assurance Inspector Name Role Phone Unavailable Primary Care Provider [...] 2017 Fecal DNA 2017 Flexible Sigmoidoscopy 2017 Imm-Pneumococcal 50+ (1 of 1 - PCV) 2022 Imm-Zoster, Recombinant (1 of 2) 2022 Two-OHEVP-26 (3 - season) 12/26/202308/19/2 021, 07/22/2020 Alcohol and Drug Screen 04/26/2024 Depression Annual Screen 04/26/2024 Imm-Influenza (#1) 2024 Insurance [facility] , [address] [address] [facility]
== END 2024-11-27 16:13 | disposition home or self-care (01) ==
LOC: HO.ENCR 15:45
PROVIDERS: PCP Physician Assistant; Visit Provider Internal Medicine Endocrinology, Diabetes & Metabolism
DX: R79.89 Other specified abnormal findings of blood chemistry (principal)
CPT/HCPCS: 99213

== ENCOUNTER 2024-12-18 10:35 | Outpatient (AMB) | payer BC, SELFPAY ==
[2024-12-18 10:48] VITALS: BP 128/76; PULSE 94; BMI 33.5
--- NOTE | 2024-12-18 10:48 | MHC.OFFVIS ---
Vital Signs 12/18/24 10:48 Height 5 ft 10 in Weight 233 lb 11.04 oz BMI 33.5 BP 128/76 Blood Pressure Location Lt brachial Position Sitting Pulse 94 Intake Visit Reasons: Fatty Liver Intake Note: Cullen presents in the office as a new patient for fatty liver. CC: States that he feels okay but was diagnosed with fatty liver - not sure if he is due - his last one was 2 years ago w/ no polyps. Allergies No Known Allergies Allergy (Verified 11/27/24 15:48) HPI HPI Fatty Liver: Details: HPI 54 yr old m here for assessment for liver issues He had labs done and noted to have elevated ferritin but nml saturation, LFT with mild ALT elevation, otherwise nml he does drink alcohol, 3-4 drinks on the weekend few times a month no nsaid use, no herbs or MV no Fh of liver disease or iron overload no abdominal pain, nausea or vomiting changing diet, more olive oil in diet cutting back on red meat, more on fish and chicken US 03/19-- increased echogenicity compatible with steatosis Last colonoscopy 2022- normal, pos FH of CRC in father ROS: Constitutional : No Weight loss, No Fever, No Chills ENT/Mouth : No sore throat, No Rhinorrhea Eyes: No Swelling, No Redness Cardiovascular : No Chest Pain, No SOB, No Edema Respiratory : No Cough, No Sputum, No Wheezing Gastrointestinal : see HPI Genitourinary : NO Dysuria, No Urinary Frequency, No Hematuria, No Urgency Musculoskeletal : + joint pain, No Myalgias, No Joint Swelling Skin : No Skin Lesions, No rash Neuro : No Weakness, No Numbness, No Dizziness, No Headache Psych : No Anxiety/Panic, No Depression Heme/Lymph: No Bruising, No Lymphadenopathy Endocrine : No Polyuria, No Polydipsia--low testosterone All other systems reviewed and are negative. 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 Tanned VITAL SIGNS:see workflow HEENT: Nonicteric sclerae, PERRLA, EOMI. Oropharynx clear. Moist mucous membranes. Conjunctivae appear well perfused. No thyroid mass. CHEST: Chest wall is nontender. HEART: Regular rate and rhythm without murmurs. LUNGS: Clear to auscultation bilaterally. ABDOMEN: Soft, positive bowel sounds, nontender, no organomegaly.no flank tenderness SKIN: No rash, no excessive bruising, petechiae, or purpura. NEUROLOGIC: Cranial nerves II-XII intact without motor/sensory deficit. Psych: normal affect A/P: 1/ Elevated ferritin but nml iron sat, mild elevated ALT - I suspect this is MASH related but given he has pituitary and joint issues, low testosterone will keep HH in mind, though testing for type 1 HH is negative there are other types of iron overload disease 2/ FH of cRC PLAN: 1/ complete liver serology w/u 2/ reviewed healthy eating diet, cut down on fats, more veg, exercise, can consider weight loss meds e.g GLP-1 approved for MASH now 3/ repeat colo 2026 PFSH Medical History Low testosterone in male Arthritis Tachycardia Obesity, Class I, BMI 30-34.9 Hyperlipidemia Hx of pneumothorax Hx of Lyme disease Hx of fracture of rib Dyslipidemia Surgical History (Updated 12/18/24 @ 10:50 by CÉSAR Dudley) Hx of colonoscopy No pertinent past surgical history Family History (Updated 12/18/24 @ 10:50 by CÉSAR Dudley) Mother Breast cancer Father Colon cancer Diabetes mellitus Heart disease Hypercholesteremia HTN (hypertension) Cardiovascular disease Maternal Aunt No problems noted. 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 Current occupational exposures/hazards: Yes Cognitive needs: Yes Hearing needs: Yes Vision needs: Yes (glasses) Physical Exam Vital Signs: Last Vital Signs Pulse 94 12/18/24 10:48 BP 128/76 12/18/24 10:48 BMI result Body Mass Index 33.5 Assessment & Plan Assessment & Plan (1) Elevated LFTs: Code(s): R79.89 - Other specified abnormal findings of blood chemistry Category: Medical Plan: as above (2) Fatty liver: Code(s): K76.0 - Fatty (change of) liver, not elsewhere classified Category: Medical Plan: as above Orders: Orders CHRISTINE Reflex Titer and Pattern Today K76.0 - Fatty (change of) liver, not elsewhere classified, R79.82 - Elevated C-reactive protein (CRP), R79.89 - Other specified abnormal findings of blood chemistry C Reactive Protein Today K76.0 - Fatty (change of) liver, not elsewhere classified, R79.89 - Other specified abnormal findings of blood chemistry Immunoglobulin G Today K52.839 - Microscopic colitis, unspecified, K76.0 - Fatty (change of) liver, not elsewhere classified, R79.89 - Other specified abnormal findings of blood chemistry Transglutaminase Ab IgG Today G89.29 - Other chronic pain, K76.0 - Fatty (change of) liver, not elsewhere classified, R10.33 - Periumbilical pain, R79.89 - Other specified abnormal findings of blood chemistry Soluble Liver Ag Autoantibody Today K76.0 - Fatty (change of) liver, not elsewhere classified, R79.89 - Other specified abnormal findings of blood chemistry Comprehensive Met. Panel Today K75.81 - Nonalcoholic steatohepatitis (QUINTANILLA), K76.0 - Fatty (change of) liver, not elsewhere classified, R79.89 - Other specified abnormal findings of blood chemistry Alpha 1 Anti-trypsin Today K76.0 - Fatty (change of) liver, not elsewhere classified, R79.89 - Other specified abnormal findings of blood chemistry Creatine Kinase Total Today K76.0 - Fatty (change of) liver, not elsewhere classified, R79.89 - Other specified abnormal findings of blood chemistry Mitochondrial Antibody Today K76.0 - Fatty (change of) liver, not elsewhere classified, R79.89 - Other specified abnormal findings of blood chemistry Ferritin Today K76.0 - Fatty (change of) liver, not elsewhere classified, R79.89 - Other specified abnormal findings of blood chemistry Hepatitis A,B,C Profile Today K76.0 - Fatty (change of) liver, not elsewhere classified, R79.89 - Other specified abnormal findings of blood chemistry Smooth Muscle Antibody Today K76.0 - Fatty (change of) liver, not elsewhere classified, R79.89 - Other specified abnormal findings of blood chemistry Complete Blood Count Auto Diff Today K76.0 - Fatty (change of) liver, not elsewhere classified, R79.89 - Other specified abnormal findings of blood chemistry Ceruloplasmin Today K76.0 - Fatty (change of) liver, not elsewhere classified, R79.89 - Other specified abnormal findings of blood chemistry Coding Level of Care Code New Pt Level 4 (95584) Diagnoses Elevated LFTs R79.89 Fatty liver K76.0
--- OUTSIDE RECORDS SUMMARY | 2024-12-18 11:50 | XMS_ITS | Clinical Summary ---
Author Organization [facility] Address [address] [place] [address] Care Team Providers Care Employment Recruiter Name Role Phone Unavailable Primary Care Provider [...] 2022 Imm-Zoster, Recombinant (1 of 2) 2022 [id number] (3 - season) 12/26/202308/19/2 021, 07/22/2020 Alcohol and Drug Screen 04/26/2024 Depression Annual Screen 04/26/2024 Imm-Influenza (#1) 2024 Insurance [facility] , [address] [phone] [facility]
--- OUTSIDE RECORDS SUMMARY | 2024-12-18 11:50 | XMS_ITS | Clinical Summary ---
Author Organization [facility] Address [address] [place] [phone] Phone Care Team Providers Care Manometer Technician Name Role Phone Unknown, Unknown Primary Care [...] - 2023-2 5 season) 2023 08/19/2020, 07/22/2020 INFLUENZA VACCINE (#1) 2024 HEPATITIS A VACCINES Aged Out No long [...] topic Medical Devices Not on file [facility] [place] [place] [address] [place] [address] PPO EPO [facility] PPO EPO [facility] PPO EPO [facility] PPO EPO Care Teams Manometer Technician Relationship Specialty Start Date End Date Unknown, Unknown, PCP - General 09/27/23 Additional Source Comments The information contained in this document represents components of the legal health record. It is not the complete legal health record.[facility]
== END 2024-12-18 11:32 | disposition home or self-care (01) ==
PROVIDERS: PCP Physician Assistant; Visit Provider Internal Medicine Gastroenterology
DX: R79.89 Other specified abnormal findings of blood chemistry (principal); K76.0 Fatty (change of) liver, not elsewhere classified
CPT/HCPCS: 99204

== ENCOUNTER 2024-12-28 17:36 | Outpatient (REF) | payer BC, SELFPAY ==
--- NOTE | ~2024-12-28 | MR_ITS ---
EXAMINATION: MR BRAIN PITUITARY PROTOCOL WITHOUT AND WITH CONTRAST CLINICAL INFORMATION: R79.89 COMPARISON: None available. TECHNIQUE: Multiplanar, multisequence MRI of the brain /pituitary protocol was obtained before and after the intravenous administration of 5.0 mL gadolinium based contrast without reported immediate complications.. FINDINGS: Pituitary gland measures 7 x 10 x 3 mm with a superior concave morphology there is a questionable 3 mm hypointense/delay signal enhancing and the intermediate apophysis. The pituitary stalk is midline and measures 1.3 mm in maximal thickness with normal homogeneous enhancement Optic chiasm is intact with normal signal. The flow-void signal within the cavernous supraclinoid segments of the ICAs normal. No enhancing mass in the cavernous sinuses. No restricted diffusion. No acute intracranial hemorrhage, mass effect, midline shift, hydrocephalus or herniation. Garibay-white matter differentiation is normal. Cavum septum pellucidum, congenital variant. Posterior cranial fossa contents demonstrated a focal punctate 1 mm hypointense T2 FLAIR signal, right cerebellum. Flow-void signal within the main cerebral vessels is normal. Normal position of the cerebellar tonsils. 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 Polypoid mucosal thickening, ethmoid air cells and maxillary sinuses. No intraaxial or extra-axial enhancing mass based on the axial T1 postcontrast sequence.. 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 Electronically signed by: Bubba Brooks MD 12/29/2024 07:11 AM EDT
--- OUTSIDE RECORDS SUMMARY | 2024-12-28 17:46 | XMS_ITS | Clinical Summary ---
Author Organization [facility] Address [address] [place] [phone] Phone Care Team Providers Care Vessel Master Name Role Phone Unknown, Unknown Primary Care [...] topic Medical Devices Not on file [facility] [place] [place] [address] [place] [address] PPO EPO [facility] PPO EPO [facility] PPO EPO [facility] PPO EPO Care Teams Vessel Master Relationship Specialty Start Date End Date Unknown, Unknown, PCP - General 09/27/23 Additional Source Comments The information contained in this document represents components of the legal health record. It is not the complete legal health record.[facility]
== END 2024-12-28 17:37 | disposition home or self-care (01) ==
LOC: HO.MRI 17:36
PROVIDERS: PCP Physician Assistant; Visit Provider Internal Medicine Endocrinology, Diabetes & Metabolism
DX: R79.89 Other specified abnormal findings of blood chemistry (principal); E29.1 Testicular hypofunction
CPT/HCPCS: 70553; A9585

== ENCOUNTER → 2024-12-28 17:37 | Outpatient (BNV) | payer BC, SELFPAY | PROVIDERS: PCP Physician Assistant; Visit Provider Radiology Diagnostic Radiology | DX: E23.6 Other disorders of pituitary gland (principal) | CPT/HCPCS: 70553 ==

== ENCOUNTER 2025-01-02 06:09 | Outpatient (REF) | payer BC, SELFPAY ==
--- OUTSIDE RECORDS SUMMARY | 2025-01-02 06:13 | XMS_ITS | Clinical Summary ---
Author Organization [facility] Address [address] [place] [address] Care Team Providers Care Molded Frames Assembler Name Role Phone Unavailable Primary Care Provider [...] 2022 Imm-Zoster, Recombinant (1 of 2) 2022 Alcohol and Drug Screen 04/26/2024 Depression Annual Screen 04/26/2024 [id number] (3 - season) 12/25/202408/19/ 021, 07/22/2020 Imm-Influenza (#1) 2024 Insurance [facility] , [address] [phone] [facility]
--- OUTSIDE RECORDS SUMMARY | 2025-01-02 06:13 | XMS_ITS | Clinical Summary ---
Author Organization [facility] Address [address] [place] [phone] Phone Care Team Providers Care Double End Tenoner Operator Name Role Phone Unknown, Unknown Primary Care [...] 2022 ZOSTER VACCINES (1 of 2) 2022 INFLUENZA VACCINE (#1) 2024 COVID-19 VACCINE (3 - 2024-2 6 season) 2024 08/19/2020, 07/22/2020 HEPATITIS A VACCINES Aged Out [...] topic Medical Devices Not on file [facility] [place] [place] [place] [place] [address] PPO EPO [facility]PO EPO [facility] PPO EPO [facility] PPO EPO Care Teams Double End Tenoner Operator Relationship Specialty Start Date End Date Unknown, Unknown, PCP - General 09/27/23 Additional Source Comments The information contained in this document represents components of the legal health record. It is not the complete legal health record.[facility]
[2025-01-02 06:42] LABS: MANUAL DIFF FLAG NO
[2025-01-02 07:56] LABS: Hematocrit 47.3 % (42.0-52.0); Hemoglobin 16.1 g/dl (14.0-18.0); Imm Gran Abs Auto 0.01 X10*3/uL (0.00-0.03); Imm Gran Pct Auto 0.1 % (0.0-0.4); Lymphocytes Absolute Auto 3.3 X10*3/uL (1.2-4.9); Mean Corpuscular HGB Conc 34.0 g/dl (31.0-36.0); Mean Corpuscular Hemoglobin 31.0 pg (27.0-33.0); Mean Corpuscular Volume 91.0 fL (80.0-98.0); NRBC Abs Auto 0.000 X10*3/uL (0.0-0.012); NRBC Pct Auto 0.0 /100WBC (0.0-0.2); Platelet Count 202 X10*3/uL (160-400); Red Blood Count 5.20 X10*6/uL (4.60-5.80); White Blood Count 7.3 X10*3/uL (4.8-10.8)
[2025-01-02 08:02] LABS: Hemoglobin A1C 168.2039 umol/L; Total Hemoglobin (HGBA1C) 4201.4098 umol/L
[2025-01-02 08:43] LABS: Alanine Aminotransferase 53 U/L (0-40); Albumin Level 5.0 g/dL (3.5-5.0); Alkaline Phosphatase 68 U/L (39-117); Anion Gap 15 (12-20); Aspartate Amino Transferase 40 U/L (5-37); Blood Urea Nitrogen 13 mg/dL (9-16); Calcium 9.5 mg/dL (8.4-10.2); Carbon Dioxide 23 mmol/L (22-29); Chloride 105 mmol/L (96-108); Cholesterol 198 mg/dL (<200); Estimated Glomerular Filt Rate > 60; Ferritin 111 ng/mL (20-250); HDL Cholesterol 28 mg/dL (>40); Iron 104 mcg/dL (45-160); Percent Iron Saturation 30 % (15-50); Potassium 4.1 mmol/L (3.3-5.1); Sodium 139 mmol/L (135-145); Total Iron Binding Capacity 344 mcg/dL (228-428); Total Protein 7.9 g/dL (6.5-8.0); Triglycerides 199 mg/dL (<150); Unsaturated Iron Binding 240 ug/dL
[2025-01-02 08:44] LABS: Prostate Specific Antigen 0.67 ng/mL (<0.05-4.0)
[2025-01-02 08:46] LABS: Ferritin 111 ng/mL (20-250)
[2025-01-02 09:09] LABS: HBS Num1 0.30 mIU/mL (0-7.99); HBc Num1 0.06 S/CO (0.00-0.79); HBsAGNum1 0.43 S/CO (0.00-0.99); Hepatitis A Antibody IgM 0.20 Index (0-0.79); Hepatitis B Surface Antigen Negative (Negative); ~HepC Num1 0.10 S/CO (0.00-0.79); ~Hepatitis A Antibody IgM Nonreactive (Nonreactive); ~Hepatitis B Surface Antibody NONREACTIVE (Nonreactive); ~Hepatitis C Antibody Nonreactive (Nonreactive)
[2025-01-02 14:22] LABS: Osmolality, Serum 293 mosm/kg (281-305)
[2025-01-03 04:33] LABS: Immunoglobulin G 1402 mg/dL (600-1640)
[2025-01-07 17:32] LABS: Testosterone, Free 141.0 pg/mL (35.0-155.0)
[2025-01-09 09:28] LABS: Anti Nuclear Antibody Pattern Nuclear, Nucleolar; Anti Nuclear Antibody Screen POSITIVE (NEGATIVE); Anti Nuclear Antibody Titer 1:80 titer
[2025-01-10 16:54] LABS: Soluble Liver Ag Autoantibody <20.1 U (0.0-20.0)
[2025-01-12 09:34] LABS: Transglutaminase Ab IgG <1.0 U/mL
== END 2025-01-02 06:10 | disposition home or self-care (01) ==
LOC: HO.LAB 06:09
PROVIDERS: Internal Medicine Endocrinology, Diabetes & Metabolism; Internal Medicine Gastroenterology; PCP Physician Assistant; Visit Provider Physician Assistant
DX: Z01.84 Encounter for antibody response examination (principal); Z12.5 Encounter for screening for malignant neoplasm of prostate; Z11.59 Encounter for screening for other viral diseases; K75.81 Nonalcoholic steatohepatitis (NASH); K52.839 Microscopic colitis, unspecified; E78.5 Hyperlipidemia, unspecified; R10.33 Periumbilical pain; G89.29 Other chronic pain; G47.33 Obstructive sleep apnea (adult) (pediatric); R79.82 Elevated C-reactive protein (CRP); R73.01 Impaired fasting glucose; R79.89 Other specified abnormal findings of blood chemistry
CPT/HCPCS: 36415; 80053; 80061; 82103; 82248; 82390; 82550; 82728; 82784; 83036; 83520; 83540; 83930; 84153; 84402; 84403; 84443; 85025; 86015; 86038; 86039; 86140; 86364; 86381; 86704; 86706; 86709; 86803; 87340

== ENCOUNTER 2025-01-08 08:33 | Outpatient (REF) | payer BC, SELFPAY ==
--- OUTSIDE RECORDS SUMMARY | 2025-01-08 09:42 | XMS_ITS | Clinical Summary ---
Author Organization [facility] Address [address] [place] [address] Care Team Providers Care Corporate Development Analyst Name Role Phone Unavailable Primary Care Provider [...] Drug Screen 04/26/2024 Depression Annual Screen 04/26/2024 [id number] (3 - season) 12/25/202408/19/ 021, 07/22/2020 Imm-Influenza (#1) 2024 Insurance [facility] , [address] [phone] [facility]
--- OUTSIDE RECORDS SUMMARY | 2025-01-08 09:42 | XMS_ITS | Clinical Summary ---
Author Organization [facility] Address [address] [place] [phone] Phone Care Team Providers Care Clerical Dentist Assistant Name Role Phone Unknown, Unknown Primary Care [...] topic Medical Devices Not on file [facility] [place] [place] [address] [address] PPO EPO [facility] PPO EPO [facility] PPO EPO [facility] PPO EPO Care Teams Clerical Dentist Assistant Relationship Specialty Start Date End Date Unknown, Unknown, PCP - General 09/27/23 Additional Source Comments The information contained in this document represents components of the legal health record. It is not the complete legal health record.[facility]
[2025-01-08 10:15] LABS: Creatinine, mg/dL 87.11
[2025-01-08 10:41] LABS: Total Volume 24 Hour Urine 2475 mL
[2025-01-15 20:03] LABS: Total Volume, 24 Hr Urine 2475 mL
== END 2025-01-08 08:34 | disposition home or self-care (01) ==
LOC: HO.LNP 08:33
PROVIDERS: Visit Provider Internal Medicine Endocrinology, Diabetes & Metabolism
DX: R79.89 Other specified abnormal findings of blood chemistry (principal)
CPT/HCPCS: 82530; 82570

== ENCOUNTER 2025-01-11 13:31 | Outpatient (AMB) | payer BC, SELFPAY ==
--- NOTE | 2025-01-11 13:38 | MHC.PC.OV ---
Vital Signs 01/11/25 13:41 Height 5 ft 10 in Weight 237 lb 8 oz BMI 34.1 BP 136/86 Blood Pressure Location Lt brachial Position Sitting Respiration 14 Pulse 94 Pulse Source Pulse Oximeter Pulse Oximetry (%) 97 Oxygen Delivery Method Room Air Intake Visit Reasons: GLP-1 weight loss injection Intake Note: Discuss weight loss injection. Stopped Crestor last week. Abattoir Manager Required: No Allergies No Known Allergies Allergy (Verified 01/11/25 13:39) Medication List - Last Reconciled 01/11/25 by Kyung Dawkins PA-C cholecalciferol (vitamin D3) 50 mcg PO DAILY 90 days MDD 2000units coenzyme A73-wuutrsb E 100-100 mg-unit caps PO omega 6-zni-fxe-fish oil 300-1,000 mg (Fish Oil) 1 cap PO TID testosterone enanthate (Xyosted) 100 mg (0.5 mL) subcut QWEEK Tobacco use date assessed: 01/11/25 Dental Screening Dental Screen Date: 01/11/25 Did you have a dental visit in the last 12 months?: No Did you have a dental problem in the last 6 months where you did not have access to dental care?: No Was dental information given to patient?: Patient declined (has implants) HPI GLP-1 weight loss injection HPI Details Patient is a 54-year-old male with a significant past medical history of hyperlipidemia mild VÍCTOR on CPAP and low testosterone presenting today for a follow up. CV: Blood pressure today in the office is 136/86.. He is not have a history of hypertension. His recent GI labs came back showing a mildly elevated CK. I did call him last week and had him stop the Crestor. He states since stopping the Crestor his joint pains have gotten better. PULM: Compliant with CPAP. No recent lung infections. No history of asthma or COPD. GI: Does have a history of elevated LFTs. He is diagnosed with fatty liver and following with GI. [facility] Medical History (Updated 01/12/25 @ 11:08 by Kyung Dawkins PA-C) Low testosterone in male Arthritis Tachycardia Obesity, Class I, BMI 30-34.9 Hyperlipidemia Hx of pneumothorax Hx of Lyme disease Hx of fracture of rib Dyslipidemia Surgical History (Updated 12/18/24 @ 10:50 by CÉSAR Dudley) Hx of colonoscopy No pertinent past surgical history Family History (Updated 12/18/24 @ 10:50 by CÉSAR Dudley) Mother Breast cancer Father Colon cancer Diabetes mellitus Heart disease Hypercholesteremia HTN (hypertension) Cardiovascular disease Maternal Aunt No problems noted. 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 Current occupational exposures/hazards: Yes Cognitive needs: Yes Hearing needs: Yes Vision needs: Yes (glasses) Questionnaire Thrive Questionnaire Date Thrive assessed: 08/17/24 I am a: Patient What is your living situation today?: I have a steady place to live Within the past 12 months, did the food you bought not last and you didn't have the money to get more?: Never true Within the past 12 months, did you worry whether your food would run out before you got money to buy more?: Never true Do you have trouble paying for medicines?: No Do you have trouble getting transportation to medical appointments?: No Do you have trouble paying your heating and electricity bill?: No Do you have trouble taking care of your child, family member or friend?: No Do you have trouble with day-to-day activities such as bathing, preparing meals, shopping, managing finances, etc.?: No Are you currently unemployed and looking for a job?: No Are you interested in more education?: No Please select the resources that you would like help with: None Currently or been in a relationship where the following occur: No concerns reported THRIVE Score: 0 AUDIT C Alcohol Use Questionnaire (AUDIT-C) 1. How often do you have a drink containing alcohol?: 2-3 times a week 2. How many drinks containing alcohol do you have on a typical day when you are drinking?: 3 or 4 3. How often do you have six or more drinks on one occasion?: Never Total Score: 4 JANET-7 AMB Questionnaire JANET-7 Date JANET - 7 assessed: 03/22/24 Source: Developed by Janet Uribe.W. Huey, Berry Green and colleagues, with an educational bora from [employer]. Physical exam (Primary Care) Vital Signs: Last Vital Signs Pulse 94 01/11/25 13:41 Resp 14 01/11/25 13:41 BP 136/86 01/11/25 13:41 Pulse Ox 97 01/11/25 13:41 Oxygen Delivery Method Room Air 01/11/25 13:41 BMI result Body Mass Index 34.1 Tobacco/Smoking Status: Tobacco use Status Tobacco use date assessed 01/11/25 01/11/25 13:44 Patient Tobacco Use Status Former Tobacco user 01/11/25 13:39 e-Cigarette/Vaping Use Never Used 01/11/25 13:39 Thrive Assessment: Date of Thrive Assessment Date Thrive assessed 08/17/24 01/11/25 13:39 Currently or been in a relationship where the following occur: No concerns reported Results Reviewed Results Reviewed: Laboratory Tests 01/02/25 06:40 WBC 7.3 RBC 5.20 Hgb 16.1 Hct 47.3 Plt Count 202 Sodium 139 Potassium 4.1 Chloride 105 Carbon Dioxide 23 Anion Gap 15 BUN 13 Creatinine 1.06 Estimated GFR > 60 Hemoglobin A1c % 5.8 AST 40 H ALT 53 H Total Creatine Kinase 205 H Triglycerides 199 H Cholesterol 198 LDL Cholesterol, Calc 131 H HDL Cholesterol 28 L TSH 2.10 Coding Level of Care Code Est Pt Level 4 (16803) Complex EM visit Add On G2211 Diagnoses Elevated CK R74.8 Dyslipidemia E78.5 IFG (impaired fasting glucose) R73.01 Mild obstructive sleep apnea G47.33 Fatty liver K76.0 Obesity, Class I, BMI 30-34.9 E66.9 Assessment & Plan Assessment & Plan (1) Elevated CK: Code(s): R74.8 - Abnormal levels of other serum enzymes Category: Medical Plan: Patient has held the statin for about a week. We will recheck CK (2) Dyslipidemia: Code(s): E78.5 - Hyperlipidemia, unspecified Category: Medical Plan: Discuss possibly starting Repatha. (3) IFG (impaired fasting glucose): Code(s): R73.01 - Impaired fasting glucose Category: Medical Plan: We will continue to monitor. We will try to get zepbound covered by insurance. (4) Mild obstructive sleep apnea: Code(s): G47.33 - Obstructive sleep apnea (adult) (pediatric) Category: Medical Plan: Continue with CPAP. We will try to get GLP 1 covered (5) Fatty liver: Code(s): K76.0 - Fatty (change of) liver, not elsewhere classified Category: Medical Plan: Recommendation from GI to start Zepbound. We discussed risks and benefits and adverse effects of this medication including but not limited to nausea, vomiting, diarrhea, constipation etc.. Discussed increased risk of pancreatitis and gallstones. (6) Obesity, Class I, BMI 30-34.9: Code(s): E66.9 - Obesity, unspecified Category: Medical Plan: We will try zepbound. He has a history of fatty liver, obstructive sleep apnea and impaired fasting glucose. He has trialed many diets and is currently a low-calorie diet and trying intermittent fasting. He eats healthy. We will also send in a CGM. He is aware that insurance may not cover this but it may help him with his diet. 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
[2025-01-11 13:41] VITALS: BP 136/86; PULSE 94; RESP 14; O2SAT 97; BMI 34.1
--- OUTSIDE RECORDS SUMMARY | 2025-01-11 15:31 | XMS_ITS | Clinical Summary ---
Author Organization [facility] Address [address] [place] [address] Care Team Providers Care Maintenance Custodian Name Role Phone Unavailable Primary Care Provider [...] Drug Screen 04/26/2024 Depression Annual Screen 04/26/2024 [id number] (3 - season) 12/25/202408/19/ 021, 07/22/2020 Imm-Influenza (#1) 2024 Insurance [facility] , [address] [phone] [facility]
--- OUTSIDE RECORDS SUMMARY | 2025-01-11 15:31 | XMS_ITS | Clinical Summary ---
Author Organization [facility] Address [address] [place] [phone] Phone Care Team Providers Care Bag End Sewer Name Role Phone Unknown, Unknown Primary Care [...] topic Medical Devices Not on file [facility] [place] [place] [address] [address] [address] PPO EPO [place] [facility] [facility] P[place] EPO Care Teams Bag End Sewer Relationship Specialty Start Date End Date Unknown, Unknown, PCP - General 09/27/23 Additional Source Comments The information contained in this document represents components of the legal health record. It is not the complete legal health record.[facility]
== END 2025-01-11 14:17 | disposition home or self-care (01) ==
LOC: HO.HMCFM 13:32
PROVIDERS: PCP Physician Assistant; Visit Provider Physician Assistant
DX: R74.8 Abnormal levels of other serum enzymes (principal); E66.9 Obesity, unspecified; Z68.34 Body mass index [BMI] 34.0-34.9, adult; E78.5 Hyperlipidemia, unspecified; R73.01 Impaired fasting glucose; G47.33 Obstructive sleep apnea (adult) (pediatric); K76.0 Fatty (change of) liver, not elsewhere classified

== ENCOUNTER 2025-01-11 13:31 | Outpatient (REF) | payer BC, SELFPAY ==
[2025-01-11 17:57] LABS: Hematocrit 44.6 % (42.0-52.0)
[2025-01-11 18:26] LABS: Alanine Aminotransferase 42 U/L (0-40); Albumin Level 5.0 g/dL (3.5-5.0); Alkaline Phosphatase 65 U/L (39-117); Anion Gap 12 (12-20); Aspartate Amino Transferase 37 U/L (5-37); Blood Urea Nitrogen 12 mg/dL (9-16); Calcium 9.6 mg/dL (8.4-10.2); Carbon Dioxide 26 mmol/L (22-29); Chloride 104 mmol/L (96-108); Estimated Glomerular Filt Rate > 60; Potassium 3.9 mmol/L (3.3-5.1); Sodium 138 mmol/L (135-145); Total Protein 8.2 g/dL (6.5-8.0)
== END 2025-01-11 13:32 | disposition home or self-care (01) ==
LOC: HO.WFDLDS 13:31
PROVIDERS: PCP Physician Assistant; Referring Provider Internal Medicine Endocrinology, Diabetes & Metabolism; Visit Provider Physician Assistant
DX: R74.8 Abnormal levels of other serum enzymes (principal); E78.5 Hyperlipidemia, unspecified; R73.01 Impaired fasting glucose; G47.33 Obstructive sleep apnea (adult) (pediatric); K76.0 Fatty (change of) liver, not elsewhere classified; E66.9 Obesity, unspecified; R79.89 Other specified abnormal findings of blood chemistry; Z68.34 Body mass index [BMI] 34.0-34.9, adult
CPT/HCPCS: 36415; 80048; 80076; 82550; 85014

== ENCOUNTER 2025-02-21 06:00 | Outpatient (REF) | payer BC, SELFPAY ==
--- OUTSIDE RECORDS SUMMARY | 2025-02-21 06:07 | XMS_ITS | Data Portability ---
Author Organization [facility], [facility] Address [address] [place] [address] Care Team Providers Care Coil Former Name Role Phone JENI HAMMOND Primary Care Provider [phone] Assessment No assessment recorded. Plan of Treatment Reminders Order Date Submit Date Provider Last Modified By Organization Details Last Modified Time Details Appointments None recorded. Lab None recorded. Referral None recorded. Procedures None recorded. Surgeries None recorded. Imaging XR, cervical spine, 1 view - room 2 lateral cervical 2023 024 [facility], [address], [address], [place], [address], 4 08:10:49 XR, shoulder, 2 or more view - room 2 left shoulder/ lateral cervical 2023 [facility], [address], [address], [place], [address], 4 08:10:49 MRI, shoulder, w/o contrast - rct 2023 024 [facility] ([facility] [address], [place], [address], 4 08:10:49 Medication Orders None recorded. Patient [...] a4ajBk vP9nXo QUaueC m3YtLR FvZlgJ JJ8mAn HZtai3 4p5154 AC0Kra nWFV6v eUC8mr 84%3D INTERFACE [facility] [address], [place], [address], 12/13/2023 12:58:46 12/13/19 24 12/13/2023 XR, cervi alejandro spine , 1 view http:/ [email or web address] ?Encry pted=s hAaTro YD8dLq bEUv6g %2BXZw aYqtaq 0bqfl% 2Fg9IQ a4ajBk vP9nXo QUaueC m3YtLR FvZlgJ JJ8mAn HZtai3 2m4122 AC0Kra nWFV6v eUC8mr 84%3D INTERFACE [facility] [address], [place], [address], 12/13/2023 12:58:48 12/13/19 24 12/13/2023 XR, shoul javan, 2 or more view http:/ [email or web address] ?Encry pted=s hAaTro YD8dLq bEUv6g %2BXZw aYqtaq 0bqfl% 2Fg9IQ a4ajBk vP9nXo QUaueC m3YtLR FvZlgJ JJ8mAn HZtai3 8y5225 AC0Kra nWFV6L eUC8mr 84%3D INTERFACE [facility] [address], [place], [address], 12/13/2023 13:02:23 12/13/19 24 12/13/2023 XR, shoul javan, 2 or more view http:/ [email or web address] ?Encry pted=s hAaTro YD8dLq bEUv6g %2BXZw aYqtaq 0bqfl% 2Fg9IQ a4ajBk vP9nXo QUaueC m3YtLR FvZlgJ JJ8mAn HZtai3 4x4729 AC0Kra nWFV6L eUC8mr 84%3D INTERFACE [facility] [address], [place], [address], 12/13/2023 13:02:24 12/20/19 24 12/18/2023 MRI, shoul javan, w/o contr ast [facility] Access ion Number : [id number] Name: Cullen Montano Record Number : [id number] Date of : 1970 Date of Exam: 2023 Referr ing Physic gopal: [facility] [address] [place] [address] Exam: MR Should er (C-) CPT 63875 - Left Room Descri ption: [facility] al Histor y: [...] . 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 Chroni c tear of [...] degene rative appear ing tear in the ladies' locker room attendant ior labrum . Bilobe d cystic struct ure adjace nt to the felicia inferi or labrum glenoi d is seen withou t defini te extens ion to the labrum to sugges t a para labral cyst. 3. Mild glenoh umeral and mild to modera te acromi oclavi cular degene rative change . Electr onical ly Signed By: Karen Clancy ra, MD [email or web address] [facility] ([facility]) [address], [place], [address], 12/24/2023 09:27:25 Result Notes Documentation Provider Name and Address Organization Details Recorded Time Xr, Shoulder, 2 Or More View : [email or web address] crypted=xoMvOvkQZ0uEqdQWy6o %4DPUbqBnftd9wizr%9Um7KHc7v pUhjV7vNeASfyxUu1WqUZWwNsiI HI7oKkYDybj59e9339EL0MblhJI U1BaZO5pp26%3D Not Available [facility] 12/13/2023 13:02:23 Xr, Shoulder, 2 Or More View : [email or web address] crypted=ybTrLtuYF7pCnhABr7n %4APWnqCfekg3nwkk%0Aw1OVv5p yFxdY0kFxGWuhhUy3ZjVAEhPqgR XK2mZgKYyzy33v9164IM1RgsfOK T7CqHT8li05%3D Not Available [facility] 12/13/2023 13:02:25 Xr, Cervical Spine, 1 View : [email or web address] crypted=biUxWidRU6dJlvKEw5u %3SIEzuIgfxj5ocjv%9Tz5GTa4a eCsaC7dMlKVagvIn2PvCNRcSjzJ ZG4qTjSNsqn04x0618SW4SsasCI S8hnMW4to34%3D Not Available [facility] 12/13/2023 12:58:47 Xr, Cervical Spine, 1 View : [email or web address] crypted=zbGoIhyUX1uVigQMc9b %2GKLsjXnuoc5qbux%4Up5PGi0d kAjaY4uFxEUmniVk9UwNFKnCvpM GR4lKaELtym87f6201OD1GylyZK L1sqKS9nq70%3D Not Available [facility] 12/13/2023 12:58:49 Mri, Shoulder, W/o Contrast : [facility] Accession Number: [id number] Patient Name: Cullen Montano Date of : 1970 Date of Exam: 12-18-2023 Referring Physician: Josué Jonas [facility] ([facility]) [address], [address] [place] [address] Exam: MR Shoulder (C-) CPT 46622 - Left Room Description: [facility] 3T Clinical History: Other specific joint derangements [...] degenerative change. Electronically Signed By: Karen Odom [facility] [place] [facility] 12/24/2023 09:27:25 Problems Name Problem SNOMED Code Status Onset Date Resolution Date Notes Provider Name and Address Organization Details Recorded Time Pain of left shoulder joint 6135910107929 9109 Active 2023 Josué Jonas PA-C [address], [place], [address], [facility] 4 12:46:01 Neck pain 42848396 Active 2023 Josué Jonas PA-C [address], [place], [address], [facility] 4 12:46:57 Impingement syndrome of left shoulder region 3826412352045 04 Active 2023 Josué Jonas PA-C [address], [place], [address], [facility] 4 13:04:56 Derangement of left shoulder joint 4498529738301 9106 Active 2023 Josué Jonas PA-C [address], [facility] [place], [address], [facility] 4 13:06:03 Osteoarthri tis of shoulder region 87093598 Active 2023 Josué Jonas PA-C [address], [facility] [place], [address], [facility] 15:38:53 Problem Notes None recorded. Procedures Surgical History Date Name Laterality Status Provider Name and Address Organization Details Recorded Time Sports Shoulder 4&1 w/US completed Josué Jonas PA-C [address], [place], [address], [facility] 01/03/2024 15:38:38 Imaging Results None recorded. Procedure [...] Updated DateTime 12/13/2023 177.8 cm 31.1 kg/m2 22944.54 g Josué Jonas PA-C [address], [place], [address], [facility] 12/13/2023 12:45:07 Date Recorded Body height Body mass index (BMI) Body weight Provider Name and Address Organization Details Last Updated DateTime 01/03/2024 177.8 cm 31.1 kg/m2 53793.54 g Josué Jonas PA-C [address], [place], [address], [place] [facility] 01/03/2024 14:59:28 Social History None recorded. Functional Status None recorded. Mental Status None recorded. Family History Nothing Reported. Medical History Condition Response Arthritis Y Cholesterol Y Past Encounters Encounter ID Performer Location Encounter Start Date Encounter Closed Date Diagnosis/Indication Diagnosis SNOMED-CT Code Diagnosis ICD10 Code Diagnosis IMO Codes Diagnosis Note [id number] DENIA Butterfield 3rd floor [address] [place] [address] 12/13/2023 12:27:51 12/30/2023 08:10:49 Pain of left shoulder joint 4541170042 9208875 M25.512 Neck pain 55368355 M54.2 Impingemen t syndrome of left shoulder region 6162491251 18754 M75.42 Derangemen t of left shoulder joint 6781102931 6576089 M24.794 [id number] DENIA Butterfield Clinical [address] [place] [address] 01/03/2024 14:54:33 01/13/2024 12:54:11 Osteoarthritis of shoulder region 70373129 M19.019 Health Concerns Section Related Observation LastModified by Organization Detai ls LastModified Time None Recorded Concern Status LastModified by Organization Details LastModified Time None Recorded Advance Directives Directive None Recorded Payers Insurance Date Sequence Insurance Name Policy Number Policy Gibson Covered Member ID Gibson Member ID Guarantor Name 01/13/2024 1 [id number] (PP[place]) [id number] Cullen Bauer Dusty [id number] Cullen Montano Notes Date Note Type [...] by me and is located in the patient s chart. PHYSICAL EXAMINATION: The patient is well appearing and in no apparent distress. Alert and oriented x 3. Gait is symmetric. Examination of the shoulder findings include: ROM forward elevation 175 , external rotates 35 , internal rotates to back pocket, 4/5 strength [...] ordered, obtained and independently reviewed today at [facility]. Four views of the left shoulder [...] discuss results and definitive care going forward. [employer] speech recognition residential plumber software was used to create portions of this document. An attempt at proofreading has been made to minimize errors. Please call for corrections. Josué Jonas PA-C [address], [place], [address], [place] [facility] 12/13/2023 13:11:35 01/03/2024 text/html I am seeing [...] the shoulder findings include: ROM forward elevation 175 , external rotates 35 , internal rotates to back pocket, 4/5 strength [...] ordered, obtained and independently reviewed today at [facility]. Four views of the left shoulder [...] distal clavicle excision sometime in the future. [employer] [facility] speech recognition residential plumber software was used to create portions of this document. An attempt at proofreading has been made to minimize errors. Please call for corrections. Josué Jonas PA-C [address] [place] [address] [address], [place], [address], [facility] 01/03/2024 15:39:17
== END 2025-02-21 06:01 | disposition home or self-care (01) ==
LOC: HO.LAB 06:00
PROVIDERS: PCP Physician Assistant; Visit Provider Physician Assistant
DX: R74.8 Abnormal levels of other serum enzymes (principal); E78.5 Hyperlipidemia, unspecified; G47.33 Obstructive sleep apnea (adult) (pediatric); E66.9 Obesity, unspecified; Z99.89 Dependence on other enabling machines and devices
CPT/HCPCS: 36415; 82550

== ENCOUNTER 2025-02-21 14:55 | Outpatient (AMB) | payer BC, SELFPAY ==
--- NOTE | 2025-02-21 15:06 | A.OFFPC_ITS ---
Vital Signs 02/21/25 15:11 Height 5 ft 10 in Weight 221 lb 4 oz BMI 31.7 BP 108/84 Blood Pressure Location Rt brachial Position Sitting Respiration 16 Pulse 96 Pulse Source Pulse Oximeter Pulse Oximetry (%) 96 Oxygen Delivery Method Room Air Intake Visit Reasons: med cehck Intake Note: Medication follow up. 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 General: has lost 17 lbs with zepbound CV: Blood pressure today in the office is 108/84.. He is not have a history of hypertension. His recent GI labs came back showing a mildly elevated CK. I did call him last week and had him stop the Crestor. He states since stopping the Crestor his joint pains have gotten better. Recent CK has reduced PULM: Compliant with CPAP. No recent lung infections. No history of asthma or COPD. GI: Does have a history of elevated LFTs. He is diagnosed with fatty liver and following with GI. [facility] Medical History Low testosterone in male Arthritis Tachycardia Obesity, Class I, BMI 30-34.9 Hyperlipidemia Hx of pneumothorax Hx of Lyme disease Hx of fracture of rib Dyslipidemia Surgical History Hx of colonoscopy No pertinent past surgical history Family History Mother Breast cancer Father Colon cancer Diabetes mellitus Heart disease Hypercholesteremia HTN (hypertension) Cardiovascular disease Maternal Aunt No problems noted. 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 [employer] Current occupational exposures/hazards: Yes Cognitive needs: Yes Hearing needs: Yes Vision needs: Yes (glasses) Questionnaire Thrive Questionnaire Date Thrive assessed: 08/17/24 I am a: Patient What is your living situation today?: I have a steady place to live Within the past 12 months, did the food you bought not last and you didn't have the money to get more?: Never true Within the past 12 months, did you worry whether your food would run out before you got money to buy more?: Never true Do you have trouble paying for medicines?: No Do you have trouble getting transportation to medical appointments?: No Do you have trouble paying your heating and electricity bill?: No Do you have trouble taking care of your child, family member or friend?: No Do you have trouble with day-to-day activities such as bathing, preparing meals, shopping, managing finances, etc.?: No Are you currently unemployed and looking for a job?: No Are you interested in more education?: No Please select the resources that you would like help with: None Currently or been in a relationship where the following occur: No concerns reported THRIVE Score: 0 JANET-7 AMB Questionnaire JANET-7 Date JANET - 7 assessed: 03/22/24 Source: Developed by Drs. Shashank Smith, Janet Arzate, Berry Green and colleagues, with an educational bora from [employer]. Physical exam (Primary Care) Vital Signs: Last Vital Signs Pulse 96 02/21/25 15:11 Resp 16 02/21/25 15:11 BP 108/84 02/21/25 15:11 Pulse Ox 96 02/21/25 15:11 Oxygen Delivery Method Room Air 02/21/25 15:11 BMI result Body Mass Index 31.7 Tobacco/Smoking Status: Tobacco use Status Tobacco use date assessed 01/11/25 02/21/25 15:09 Patient Tobacco Use Status Former Tobacco user 02/21/25 15:09 e-Cigarette/Vaping Use Never Used 02/21/25 15:09 Thrive Assessment: Date of Thrive Assessment Date Thrive assessed 08/17/24 02/21/25 15:09 Currently or been in a relationship where the following occur: No concerns repor akin Const Orientation/consciousness: patient oriented x3 HENMT Ears: hearing grossly normal bilaterally Neck Thyroid: Thyroid normal Lymphatic: no lymphadenopathy noted Resp Auscultation: clear to auscultation bilaterally Cardio Rate: regular rate Rhythm: regular rhythm Heart sounds: S1 normal heart sound present and S2 normal heart sound present GI Inspection: Yes normal to inspection Palpation (GI): Soft to palpation and Other GI palpation findings present (nontender, no cva tenderness) Auscultation: normoactive bowel sounds Rectal Exam - Male: Yes deferred Skin General skin exam: no rashes or lesions noted Neuro General: patient oriented x3, gait normal and no focal motor deficits Coding Level of Care Code Est Pt Level 4 (18946) Complex EM visit Add On G2211 Diagnoses Obesity, Class I, BMI 30-34.9 E66.9 Dyslipidemia E78.5 Elevated CK R74.8 Assessment & Plan Assessment & Plan (1) Obesity, Class I, BMI 30-34.9: Code(s): E66.9 - Obesity, unspecified Category: Medical Plan: has lost almost 20 lbs will increase to 5 mg (2) Dyslipidemia: Code(s): E78.5 - Hyperlipidemia, unspecified Category: Medical Plan: had elevated ck with statin will recheck lipids in 3 months (3) Elevated CK: Code(s): R74.8 - Abnormal levels of other serum enzymes Category: Medical Plan: reducing being off of statin Orders: Orders Comprehensive [place]. Panel Fast 3 Months E78.5 - Hyperlipidemia, unspecified, K76.0 - Fatty (change of) liver, not elsewhere classified, R79.89 - Other specified abnormal findings of blood chemistry Lipid Panel 02/21/25 E78.5 - Hyperlipidemia, unspecified, K76.0 - Fatty (change of) liver, not elsewhere classified, R79.89 - Other specified abnormal findings of blood chemistry
[2025-02-21 15:11] VITALS: BP 108/84; PULSE 96; RESP 16; O2SAT 96; BMI 31.7
--- OUTSIDE RECORDS SUMMARY | 2025-02-21 19:27 | XMS_ITS | Clinical Summary ---
Author Organization [facility] Address [address] [place] [address] Care Team Providers Care Water Resource Manager Name Role Phone Unavailable Primary Care [...] Drug Screen 04/26/2024 Depression Annual Screen 04/26/2024 [id number] (3 - season) 12/25/202408/19/ 021, 07/22/2020 Imm-Influenza (#1) 2024 Insurance [facility] , [address] [phone] [facility]
--- OUTSIDE RECORDS SUMMARY | 2025-02-21 19:27 | XMS_ITS | Clinical Summary ---
Author Organization [facility] Address [address] [place] [address] Phone Care Team Providers Care Title Agent Name Role Phone Unknown, Unknown Primary Care [...] - 2024-2 6 season) 2024 08/19/2020, 07/22/2020 RSV VACCINE (1 - 1-dose 75+ series) 12/16/2047 HEPATITIS A VACCINES Aged Out No long [...] topic Medical Devices Not on file Insurance [facility] EPO BLUE [facility] PPO EPO [facility] PPO EPO [facility] PPO EPO [place] [place] P[place] EPO [facility] PPO EPO Care Teams Title Agent Relationship Specialty Start Date End Date Unknown, Unknown, PCP - General 09/27/23 Additional Source Comments The information contained in this document represents components of the legal health record. It is not the complete legal health record.[facility]
== END 2025-02-21 15:43 | disposition home or self-care (01) ==
LOC: HO.HMCFM 14:56
PROVIDERS: PCP Physician Assistant; Visit Provider Physician Assistant
DX: E78.5 Hyperlipidemia, unspecified (principal); E66.9 Obesity, unspecified; Z68.31 Body mass index [BMI] 31.0-31.9, adult; R74.8 Abnormal levels of other serum enzymes

== ENCOUNTER 2025-02-22 15:00 | Outpatient (AMB) | payer BC, SELFPAY ==
[2025-02-22 15:02] VITALS: BP 116/82; PULSE 81; O2SAT 96; BMI 31.9
--- NOTE | 2025-02-22 15:02 | A.OFFVIS_ITS ---
Vital Signs 02/22/25 15:02 Height 5 ft 10 in Weight 222 lb BMI 31.9 BP 116/82 Blood Pressure Location Rt brachial Position Sitting Pulse 81 Pulse Source Pulse Oximeter Pulse Oximetry (%) 96 Oxygen Delivery Method Room Air Intake Visit Reasons: 6 mo follow up Intake Note: Patient presents follow up VÍCTOR. Compliacne in chart(72/90days, >=4hrs-68%, Average Usage-4hr 41min, Med Pressure-11.0, Med Leaks-0.2, AHI-0.5) Accompanied by: Self / Same As Patient Allergies No Known Allergies Allergy (Verified 02/22/25 15:06) HPI Comments Details: 54 year old male presents for a f/u visit for VÍCTOR. VÍCTOR compliance report reviewed with pt October 2024-Jan 2025 Total average uses is 5 hours 22min and >4 hours 61/90 Leaks 3.17 APAP [id number] and AHI is 4/hr. He washes his mask, rinses hose, changes filters and fills reservoir with water. He likes his new F20 large mask and has refreshing sleep now. In August 2024 he had new implants surgically completed for the upper and lower jaw, at [facility] in [place], [place]. He also states he has lost about 18lbs of weight and would like to be evaluated for VÍCTOR. He c/o having difficulties with the pressures ramping up at night and blowing on his face, however pressures are now improved and more tolerable. He now he has a full face mask resmed F20 and really feels the experience of using his cpap has improved since changing to full face mask. He feels better when breathing and no longer wakes up as if he is choking. He goes to bed at 9pm and wakes up at 5am, with no bathroom breaks, still being followed by Endocrine Dr. Graham re: testosterone therapy and now his mood, and libido both have improved since st arting therapy. He says his memory is good and eats a good nutritious diet, he continues to fasts between 9pm to 9am. He travels for fun 1x a month, hikes weekly, and completes over 10,000 steps daily at work throughout the day, does not drink enough water. His Triglycerides are still elevated but improved since prior years. 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 [facility] Medical History Low testosterone in male Arthritis Tachycardia Obesity, Class I, BMI 30-34.9 Hyperlipidemia Hx of pneumothorax Hx of Lyme disease Hx of fracture of rib Dyslipidemia Surgical History Hx of colonoscopy No pertinent past surgical history Family History Mother Breast cancer Father Colon cancer Diabetes mellitus Heart disease Hypercholesteremia HTN (hypertension) Cardiovascular disease Maternal Aunt No problems noted. 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 Current occupational exposures/hazards: Yes Cognitive needs: Yes Hearing needs: Yes Vision needs: Yes (glasses) Physical Exam Vital Signs: Last Vital Signs Pulse 81 02/22/25 15:02 BP 116/82 02/22/25 15:02 Pulse Ox 96 02/22/25 15:02 Oxygen Delivery Method Room Air 02/22/25 15:02 BMI result Body Mass Index 31.9 Const General: cooperative, comfortable and no acute distress Nutritional Appearance: average body habitus and obese (BMI is 32) Orientation/consciousness: patient oriented x3 HEENT Face and sinus: Yes normal facial exam and Yes face symmetric Teeth and gingiva: other (Mallmpti score of 3) Eyes Pupils: Equal, round and reactive pupils present Neck Neck: Yes full ROM and Yes supple Resp Effort & Inspection: normal respiratory effort and able to speak in complete sentences Neuro General: patient oriented x3 and moves all extremities Cranial nerves: Yes CN's II-XII intact bilaterally, Yes Facial sensation intact/muscles of mastication intact, Yes Equal, round and reactive pupils pres ent, Yes Normal accommodation reflex present, Yes Bilaterally intact EOM present, Yes Nystagmus not present, Yes Normal facial strength present, Yes Midline tongue present, Yes Ability to bilaterally rotate head present and Yes Ability to bilaterally elevate shoulders present Gait exam (Neuro): Normal gait present Motor exam (neuro): 5/5 motor strength present throughout, Pronator motor function not present, no tremor noted and Normal motor muscle tone present throughout Deep tendon reflexes (DTR's): Right triceps reflex intensity grade: 2+, Left triceps reflex intensity grade: 2+, Rt Biceps (C5, C6): 2+, Left biceps reflex intensity grade: 2+, Right brachioradialis reflex intensity grade: 2+, Left brachioradialis reflex intensity grade: 2+, Right patellar reflex intensity grade: 2+ and Left patellar reflex intensity grade: 2+ Psych Appearance: grossly normal Mental Status: mental status grossly normal Speech and movement: Normal speech and movement present Affect: normal affect Attitude: cooperative Thought process: Normal thought process present Thought content: Normal thought content present Insight: Good insight present (Psych) Judgement: Good judgement present (Psych) Results Reviewed Results Reviewed: Mitoch.Ab Titer Test not performed Smooth Muscle <20 <20 U Reference Range: <20 U: Negative >or=20 U: Positive Antibodies recognizing actin are the main component of smooth muscle antibodies associated with auto- immune liver disease. Actin antibodies are found in approximately 75% of patients with autoimmune hepatitis (AIH) type 1, approximately 65% of patients with autoimmune cholangitis, approximately 30% of patients with primary biliary cirrhosis and approximately 2% of healthy controls. High values are closely correlated with AIH type 1. Will f/u with Rheumatology on Apr 09, 2025. ASS Assessment & Plan Assessment & Plan (1) Mild obstructive sleep apnea: Code(s): G47.33 - Obstructive sleep apnea (adult) (pediatric) Category: Medical (2) Excessive daytime sleepiness: Code(s): G47.19 - Other hypersomnia Category: Medical (3) Low testosterone in male: Code(s): R79.89 - Other specified abnormal findings of blood chemistry Category: Medical (4) Fatigue due to sleep pattern disturbance: Code(s): R53.83 - Other fatigue; G47.9 - Sleep disorder, unspecified Category: Medical (5) Anemia: Code(s): D64.9 - Anemia, unspecified Category: Medical Qualifiers: Anemia type: iron deficiency Iron deficiency anemia type: unspecified iron deficiency Qualified Code(s): D50.9 - Iron deficiency anemia, unspecified Plan VÍCTOR Mild Continue CPAP therapy, [id number], patient self adjusted pressures to [id number], will f/u if AHI continues to be elevated, instructed patient not to self titrate pressures more than 2cmH20 at any given time. PSG to r/o víctor Labs due to Fatigue due to sleep pattern disturbances reviewed labs: Vit D is low, start Vitamin D, HDL is low increase [place] 3 fatty acids. Triglycerides are elevated will f/u with PCP. CK levels f/u with rheumatology per pcp. smooth muscle antibodies are also elevated. Orders: Orders Methylmalonic Acid Today D64.9 - Anemia, unspecified, G47.9 - Sleep disorder, unspecified, R53.83 - Other fatigue Vitamin D 25-OH Total Today D64.9 - Anemia, unspecified Vitamin B12 and Folate Today D64.9 - Anemia, unspecified RT PSG in-lab sleep study Today G47.19 - Other hypersomnia Ferritin Today D64.9 - Anemia, unspecified Homocysteine Today D64.9 - Anemia, unspecified, G47.9 - Sleep disorder, unspecified, R53.83 - Other fatigue TSH reflex Free T4 Today D64.9 - Anemia, unspecified Patient Instructions: Sleep Hygiene provided: set a scheduled bedtime and wake time to help regulate the circadian rhythm and balance the release of pituitary hormones. Sleep in a dark room, temperatures below 68 degrees, and no devices n bed. Limit caffeinated products 6 hours prior to bed, and limit fluids 2-4 hours prior to bed. Gentle night yoga, diffusing essential oils, and playing soft music can be relaxing. Coding Level of Care Code Est Pt Level 4 (14978) Diagnoses Mild obstructive sleep apnea G47.33 Excessive daytime sleepiness G47.19 Low testosterone in male R79.89 Fatigue due to sleep pattern disturbance R53.83; G47.9 Iron deficiency anemia, unspecified iron deficiency anemia type D50.9 Anemia type: iron deficiency Iron deficiency anemia type: unspecified iron deficiency
--- OUTSIDE RECORDS SUMMARY | 2025-02-22 17:53 | XMS_ITS | Clinical Summary ---
Author Organization Located Within [facility] Address [address] [place] [phone] Phone Care Team Providers Care Dragline Engineer Name Role Phone Unknown, Unknown Primary Care [...] Devices Not on file Insurance [facility] EPO BLUE [facility] PPO EPO [facility] PPO EPO [facility] PPO EPO [employer] [place] [place] P[place] EPO [facility] PPO EPO Care Teams Dragline Engineer Relationship Specialty Start Date End Date Unknown, Unknown, PCP - General 09/27/23 Additional Source Comments The information contained in this document represents components of the legal health record. It is not the complete legal health record.[facility]
--- OUTSIDE RECORDS SUMMARY | 2025-02-22 17:53 | XMS_ITS | Clinical Summary ---
Author Organization [facility] Address [address] [place] [address] Care Team Providers Care Yarrow Gatherer Name Role Phone Unavailable Primary Care Provider [...] Drug Screen 04/26/2024 Depression Annual Screen 04/26/2024 [id number]-[id number] (3 - season) 12/25/202408/19/ 021, 07/22/2020 Imm-Influenza (#1) 2024 Insurance [facility] , [address] [id number] [facility]
== END 2025-02-22 16:12 | disposition home or self-care (01) ==
LOC: HO.HSMS 15:01
PROVIDERS: PCP Physician Assistant; Visit Provider Physician Assistant Medical
DX: G47.33 Obstructive sleep apnea (adult) (pediatric) (principal); G47.19 Other hypersomnia; R79.89 Other specified abnormal findings of blood chemistry; R53.83 Other fatigue; G47.9 Sleep disorder, unspecified; D50.9 Iron deficiency anemia, unspecified
CPT/HCPCS: 99214

== ENCOUNTER 2025-02-27 15:47 | Outpatient (AMB) | payer BC, SELFPAY ==
[2025-02-27 15:49] VITALS: BP 124/72; PULSE 85; O2SAT 96; BMI 32.2
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
--- OUTSIDE RECORDS SUMMARY | 2025-02-27 18:20 | XMS_ITS | Clinical Summary ---
Author Organization [facility] Address [address] [place] [phone] Phone Care Team Providers Care Body Service Team Member Name Role Phone Unknown, Unknown Primary Care [...] topic Medical Devices Not on file Insurance [facility] EPO BLUE [facility] PPO EPO [facility] PPO EPO [facility] PPO EPO [place] PPO EPO [facility] PPO EPO Care Teams Body Service Team Member Relationship Specialty Start Date End Date Unknown, Unknown, PCP - General 09/27/23 Additional Source Comments The information contained in this document represents components of the legal health record. It is not the complete legal health record.[facility]
--- OUTSIDE RECORDS SUMMARY | 2025-02-27 18:20 | XMS_ITS | Data Portability ---
Author Organization [facility], [facility] Address [address] [place] [address] Care Team Providers Care Retail District Manager Name Role Phone JENI HAMMOND Primary Care Provider [phone] Assessment No assessment recorded. Plan of Treatment Reminders Order Date Submit Date Provider Last Modified By Organization Details Last Modified Time Details Appointments None recorded. Lab None recorded. Referral None recorded. Procedures None recorded. Surgeries None recorded. Imaging XR, cervical spine, 1 view - room 2 lateral cervical 2023 024 [facility], [address], [address], [place], [address], 4 08:10:49 XR, shoulder, 2 or more view - room 2 left shoulder/ lateral cervical 2023 024 [facility], [address], [address], [place], [address], 4 08:10:49 MRI, shoulder, w/o contrast - rct 2023 024 [facility] ([facility] [address], [place], [address], 4 08:10:49 Medication Orders None recorded. Patient [...] a4ajBk vP9nXo QUaueC m3YtLR FvZlgJ JJ8mAn HZtai3 1w7611 AC0Kra nWFV6v eUC8mr 84%3D INTERFACE [facility] [address], [place], [address], 12/13/2023 12:58:46 12/13/19 24 12/13/2023 XR, cervi alejandro spine , 1 view http:/ [email or web address] ?Encry pted=s hAaTro YD8dLq bEUv6g %2BXZw aYqtaq 0bqfl% 2Fg9IQ a4ajBk vP9nXo QUaueC m3YtLR FvZlgJ JJ8mAn HZtai3 3z5701 AC0Kra nWFV6v eUC8mr 84%3D INTERFACE [facility] [address], [place], [address], 12/13/2023 12:58:48 12/13/19 24 12/13/2023 XR, shoul javan, 2 or more view http:/ [email or web address] ?Encry pted=s hAaTro YD8dLq bEUv6g %2BXZw aYqtaq 0bqfl% 2Fg9IQ a4ajBk vP9nXo QUaueC m3YtLR FvZlgJ JJ8mAn HZtai3 7j7842 AC0Kra nWFV6L eUC8mr 84%3D INTERFACE [facility] [address], [place], [address], 12/13/2023 13:02:23 12/13/19 24 12/13/2023 XR, shoul javan, 2 or more view http:/ [email or web address] ?Encry pted=s hAaTro YD8dLq bEUv6g %2BXZw aYqtaq 0bqfl% 2Fg9IQ a4ajBk vP9nXo QUaueC m3YtLR FvZlgJ JJ8mAn HZtai3 4d7978 AC0Kra nWFV6L eUC8mr 84%3D INTERFACE [facility] [address], [place], [address], 12/13/2023 13:02:24 12/20/19 24 12/18/2023 MRI, shoul javan, w/o contr ast [facility] Access ion Number : [id number] Name: Cullen Montano Record Number : [id number] Date of : 1970 Date of Exam: 2023 Referr ing Physic gopal: [facility] [address] [place] [address] Exam: MR Should er (C-) CPT 54595 - Left Room Descri ption: [place] [facility] Clinic al Histor y: [...] . Superi mposed tearin g of the orthopaedic nurse ior labrum . Chroni c tear of [...] degene rative appear ing tear in the orthopaedic nurse ior labrum . Bilobe d cystic struct ure adjace nt to the felicia inferi or labrum glenoi d is seen withou t defini te extens ion to the labrum to sugges t a para labral cyst. 3. Mild glenoh umeral and mild to modera te acromi oclavi cular degene rative change . Electr onical ly Signed By: Karen Clancy ra, MD [email or web address] [facility] ([facility]) [address], [place], [address], 12/24/2023 09:27:25 Result Notes Documentation Provider Name and Address Organization Details Recorded Time Xr, Shoulder, 2 Or More View : [email or web address] crypted=ywKnDuxHA2qXgbFWt2d %2QFVrxMepeh8zkap%6Lh1ABc9q aJmuL5pUyYRcpzIp2TsBQNmKmwF EL1hEeEJgpv87r9323SX7GqzjVL G1AfVB8ue73%3D Not Available [facility] 12/13/2023 13:02:23 Xr, Shoulder, 2 Or More View : [email or web address] crypted=hlMdUarZS8aDoaSKo3r %9PDSgeZezti3oyyq%2Jo5BEu2q uKqkI1hJnFPpuzEi2QnONJbSpzM VN0hQlDVjym98v5970CV2WihiGO E9TeQC0by36%3D Not Available [facility] 12/13/2023 13:02:25 Xr, Cervical Spine, 1 View : [email or web address] crypted=cySqGktLZ8cNjyFBj9a %8EFGhqChtpl5ddeg%4Pv0VIo1x oFdnF2rYiOPompIg9ImOXQhTqeA IJ0wVsIWjuo78x2057EJ7ZvivAT H6skRY0ng96%3D Not Available [facility] 12/13/2023 12:58:47 Xr, Cervical Spine, 1 View : [email or web address] crypted=utWmBoaWN4bTctHJq7q %0YCVojZbzku2samw%0Mw6IAy6j aBcxN4pCtRBqkjFc2ShUKZsJmrO MX5nNyIBgae48h9114TD0ZrwgZO I8pzER1zf31%3D Not Available [facility] 12/13/2023 12:58:49 Mri, Shoulder, W/o Contrast : [facility] Accession Number: [id number] Patient Name: Cullen Montano Date of : 1970 Date of Exam: 12-18-2023 Referring Physician: Josué Jonas [facility] ([facility]) [address], [address] [place] [address] Exam: MR Shoulder (C-) CPT 93113 - Left Room Description: [facility] 3T Clinical History: Other specific joint derangements [...] degenerative change. Electronically Signed By: Karen Odom [facility] [place] [facility] 12/24/2023 09:27:25 Problems Name Problem SNOMED Code Status Onset Date Resolution Date Notes Provider Name and Address Organization Details Recorded Time Pain of left shoulder joint 2641166563576 9109 Active 2023 Josué Jonas PA-C [address], [place], [address], [facility] 4 12:46:01 Neck pain 02525088 Active 2023 Josué Jonas PA-C [address], [place], [address], [facility] 4 12:46:57 Impingement syndrome of left shoulder region 2193550034719 04 Active 2023 Josué Jonas PA-C [address], [place], [address], [facility] 4 13:04:56 Derangement of left shoulder joint 4629956538300 9106 Active 2023 Josué Jonas PA-C [address], [facility] [place], [address], [facility] 4 13:06:03 Osteoarthri tis of shoulder region 91635721 Active 2023 Josué Jonas PA-C [address], [facility] [place], [address], [facility] 15:38:53 Problem Notes None recorded. Procedures Surgical History Date Name Laterality Status Provider Name and Address Organization Details Recorded Time Sports Shoulder 4&1 w/US completed Josué Jonas PA-C [address], [place], [address], [facility] 01/03/2024 15:38:38 Imaging Results None recorded. [...] Updated DateTime 12/13/2023 177.8 cm 31.1 kg/m2 64781.54 g Josué Jonas PA-C [address], [place], [address], [facility] 12/13/2023 12:45:07 Date Recorded Body height Body mass index (BMI) Body weight Provider Name and Address Organization Details Last Updated DateTime 01/03/2024 177.8 cm 31.1 kg/m2 50522.54 g Josué Jonas PA-C [address], [place], [address], [place] [facility] 01/03/2024 14:59:28 Social History None recorded. Functional Status None recorded. Mental Status None recorded. Family History Nothing Reported. Medical History Condition Response Arthritis Y Cholesterol Y Past Encounters Encounter ID Performer Location Encounter Start Date Encounter Closed Date Diagnosis/Indication Diagnosis SNOMED-CT Code Diagnosis ICD10 Code Diagnosis IMO Codes Diagnosis Note [id number] DENIA Butterfield [address]rd floor [address] [place] [address] 12/13/2023 12:27:51 12/30/2023 08:10:49 Pain of left shoulder joint 9568053325 9992013 M25.512 Neck pain 25596169 M54.2 Impingemen t syndrome of left shoulder region 4918551105 03942 M75.42 Derangemen t of left shoulder joint 0951337886 7846660 M24.782 [id number] DENIA Butterfield [facility] [address] [place] [address] 01/03/2024 14:54:33 01/13/2024 12:54:11 Osteoarthritis of shoulder region 93375714 M19.019 Health Concerns Section Related Observation LastModified by Organization Detai ls LastModified Time None Recorded Concern Status LastModified by Organization Details LastModified Time None Recorded Advance Directives Directive None Recorded Payers Insurance Date Sequence Insurance Name Policy Number Policy Gibson Covered Member ID Gibson Member ID Guarantor Name 01/13/2024 1 [id number] ([place]) [id number] Cullen Bauer Dusty [id number] Cullen Montano Notes Date Note Type [...] ordered, obtained and independently reviewed today at [facility]. Four views of the left shoulder [...] discuss results and definitive care going forward. [employer] speech recognition athletic events scorer software was used to create portions of this document. An attempt at proofreading has been made to minimize errors. Please call for corrections. Josué Jonas PA-C [address], [place], [address], [place] [facility] 12/13/2023 13:11:35 01/03/2024 text/html I am [...] ordered, obtained and independently reviewed today at [facility]. Four views of the left shoulder [...] distal clavicle excision sometime in the future. [facility] speech recognition athletic events scorer software was used to create portions of this document. An attempt at proofreading has been made to minimize errors. Please call for corrections. Josué Jonas PA-C [address] [place] [address] [address], [place], [address], [facility] - [facility] 01/03/2024 15:39:17
== END 2025-02-27 16:11 | disposition home or self-care (01) ==
LOC: HO.ENCR 15:48
PROVIDERS: PCP Physician Assistant; Visit Provider Internal Medicine Endocrinology, Diabetes & Metabolism
DX: R79.89 Other specified abnormal findings of blood chemistry (principal)
CPT/HCPCS: 99213